=== PATIENT | female | born 1965 | race Caucasian/White ===

== ENCOUNTER 2016-08-22 12:16 | Inpatient (IN) | payer BC ==
[~2016-08-22] VITALS: Ht 177.8 cm; Wt 137.0 kg
[~2016-08-22 12:16] MED LIST: NEBI5TAB9 PO
--- NOTE | 2016-08-22 13:48 | RADRPT ---
PROCEDURE: US right lower extremity veins. CLINICAL INDICATION: Right leg pain and swelling. TECHNIQUE: Multiple longitudinal and transverse images of the right lower extremity veins were obt ained with carlton scale and color Doppler imaging. The common femoral vein, femoral vein, and poplitea l vein were evaluated. 2D grayscale measurements with compression sonography, pulsed Doppler, color Doppler, and pulsed Doppler with augmentation. COMPARISON: No prior studies are available for comparison. FINDINGS: The right common femoral vein demonstrates normal flow and compressibility. There is lack of flow a nd lack of compressibility in the right upper femoral vein, right mid femoral vein, right lower femo ral vein, and right popliteal vein. IMPRESSION: 1. Normal right common femoral vein. 2. Acute deep venous thrombosis of the entire right femoral vein and right popliteal vein. Call report: A call report of the findings was made to Dr. Davis on 08/22/2016 at 1345 hours . RPTAT: QQ .Mukund Nolasco MD, MD Date Time Electronically viewed and signed by .Mukund Nolasco MD, on 08/22/2016 13:47 .R/
[2016-08-22 15:12] VITALS: BP 138/65; RESP 19
--- NOTE | 2016-08-22 16:28 | HP ---
DATE OF ADMISSION: 08/22/2016 CHIEF COMPLAINT AND HISTORY OF PRESENT ILLNESS: The patient is a 51-year-old lady who is well known to me from a previous followup, who presents with severe pain in the right knee and was evaluated in the office. The pain was in the right knee on 07/18/2016 and the patient was begun on a course of nonsteroidals , with a dressing to the right knee, with some improvement. She had developed mild tenderness in the right calf on 07/25/2016 and a Doppler study was performed of the right lower extremity and was negative for DVT and she was advised to follow up with Dr. Mayen and consider MRI. On 08/07/2016 she twisted his right knee while getting up and had been evaluated again in the office. On 08/15/2016 MRI of the right knee showed unstable attachment, a tear of the posterior horn of the medial meniscus, with mild peripheral subluxation, and also a clot in the popliteal vein was noted. The patient was advised to have a Doppler study of the right lower extremity, which was performed today, and it showed acute DVT of the entire right femoral vein and right popliteal vein and the patient is directly admitted to the medical floor for anticoagulation, as well as orthopedic followup. REVIEW OF SYSTEMS: HEAD: No history of headaches, focal weakness, or numbness. EYES: No blurry vision or glaucoma. ENT: Noncontributory. NECK: No history of thyroid disease. CHEST: No bronchitis, hay fever, or asthma. The patient does not smoke. CARDIOVASCULAR: No PND, orthopnea or palpitations. GASTROINTESTINAL: No constipation, diarrhea or change in bowel habits. GENITOURINARY: No dysuria, hematuria or kidney stones. ALLERGIES: NO KNOWN ALLERGIES. PAST MEDICAL HISTORY: The patient has a history of hypertension and she had being on Bystolic 5 mg p.o. daily, with adequate control. SOCIAL HISTORY: The patient is , has 1 son, and works in [employer]. FAMILY HISTORY: Negative for diabetes and hypertension. No history of hypercoagulable states. The patient's father had a stroke. Mother has hypertension. PAST SURGICAL HISTORY: Includes a . PHYSICAL EXAMINATION: GENERAL: The patient is a very pleasant lady, in no acute distress at the present time. VITAL SIGNS: Blood pressure 170/80, respiratory rate 20 per minute. HEENT: Head normocephalic. No pallor, cyanosis, or icterus. Tongue is moist. NECK: Supple. No thyromegaly, bruits or lymphadenopathy. LUNGS: Clinically clear. HEART: S1, S2 heard, with no definite gallops. ABDOMEN: Soft, nontender. No hepatosplenomegaly. EXTREMITIES: Moderate tenderness on palpation of the right knee, with swelling of the right lower extremity. Negative Homans. NEUROLOGIC: No localizing or lateralizing signs. IMPRESSION: 1. Acute deep vein thrombosis of the right femoral and right popliteal veins. 2. Internal injury of the right knee, with a tear of the medial meniscus. 3. Hypertension. Well compensated. PLAN: The patient will be admitted to the medical floor. Will start the patient on Lovenox. Will obtain an orthopedic followup with Dr. Mayen. The DVT has been provoked and therefore no major workup will be initiated for a hypercoagulable state. Dictated By: NIKA WEI MD Addendum: When I repeated the history, reg any pulmonary complaints, pt mentioned regarding mild pleuritic pain for the past 2 days, concern for PE has been raised, will order CTA. If positive for PE, will initiate w/u for thrombophilia. SR/MARIELA Conf#: [id number] DID#: [id number] MTDD
[2016-08-22] MEDS ORDERED: morphine 4 MG/ML VIAL IV PRN (17:00)
[2016-08-22] MEDS ORDERED: ZOLPIDEM 5 MG TAB PO PRN (17:00)
[2016-08-22] MEDS ORDERED: ACETAMINOPHEN 500 MG TAB PO PRN (17:00)
[2016-08-22 17:48] VITALS: Ht 177.8 cm; Wt 137.0 kg
[2016-08-22 18:46] LABS: BASOPHILS % 0.5 % (0.0-2.0); EOSINOPHILS # 0.4 10^3/ul (0.0-0.5); EOSINOPHILS % 3.9 % (0.0-7.0); HEMATOCRIT 33.2 % (37.0-47.0); HEMOGLOBIN 10.6 g/dl (12.0-16.0); LYMPHOCYTES # 2.7 10^3/ul (0.8-2.9); LYMPHOCYTES % 26.3 % (15.0-51.0); MEAN CORPUSCULAR HEMOGLOBIN 24.5 pg (29.0-33.0); MEAN CORPUSCULAR VOLUME 76.6 fl (82.0-101.0); MEAN PLATELET VOLUME 7.1 fl (7.4-10.4); MONOCYTE # 0.9 10^3/ul (0.3-0.9); MONOCYTES % 8.9 % (0.0-11.0); NEUTROPHIL # 6.3 10^3/ul (1.6-7.5); NEUTROPHILS % 60.4 % (39.0-77.0); PLATELET COUNT 273 10^3/UL (140-440); RED BLOOD COUNT 4.33 10^6/ul (4.20-5.40); RED CELL DISTRIBUTION WIDTH 18.7 % (11.5-14.5); UNCORRECTED WBC 10.5 10^3/ul (4.8-10.8); WHITE BLOOD COUNT 10.5 10^3/ul (4.8-10.8)
[2016-08-22 18:52] LABS: CONDITION 1; LH ANALYZER COMMENTS 1
[2016-08-22 19:00] LABS: INR 0.98
[2016-08-22 19:02] LABS: PARTIAL THROMBOPLASTIN TIME 24.7 Sec (25.0-35.0)
[2016-08-22] MEDS ORDERED: SOD CHLORIDE 0.45% 1,000 ML IV SCH (19:30)
[2016-08-22 19:36] LABS: ALBUMIN/GLOBULIN RATIO 1.11; BILIRUBIN,INDIRECT 0.9 mg/dl (0-1.1); BILIRUBIN,TOTAL 0.9 mg/dl (0.2-1.3); CREATININE 0.98 mg/dl (0.44-1.00); TOTAL PROTEIN 7.6 g/dl (6.1-8.1)
[2016-08-22 19:37] LABS: CALCIUM 8.9 mg/dl (8.4-10.2)
[2016-08-22] MEDS ORDERED: IOHEXOL 0 ML ONE (19:59)
[2016-08-22 20:57] VITALS: BP 134/68; RESP 19
[2016-08-22] MEDS: ENOXAPARIN 60 MG/0.6 ML SYG SC SCH (21:14)
--- NOTE | 2016-08-22 21:21 | RADRPT ---
PROCEDURE: XR Chest. CLINICAL INDICATION: cough/ pleuritic pain TECHNIQUE: PA and lateral views of the chest were obtained COMPARISON: None FINDINGS: The heart and mediastinum are within normal limits. The lungs are clear and there is no pleural effusion or pneumothorax. The bones and soft tissues are unremarkable. IMPRESSION: No acute intrathoracic abnormality. RPTAT:AAJJ Physician Rustam Date Time Electronically viewed and signed by Physician Rustam on 08/22/2016 21:21 SNEHA/
[2016-08-23] VITALS (13 sets, daily range): BP systolic 115–141; BP diastolic 46–76; PULSE 77–95; RESP 16–24
[2016-08-23] MEDS: HYDROCODONE/APAP (5/325) TAB PO PRN ×3 (04:57→20:23)
[2016-08-23 06:09] LABS: BASOPHIL # 0.1 10^3/ul (0.0-0.1); BASOPHILS % 0.6 % (0.0-2.0); EOSINOPHILS # 0.3 10^3/ul (0.0-0.5); EOSINOPHILS % 2.8 % (0.0-7.0); HEMATOCRIT 32.5 % (37.0-47.0); HEMOGLOBIN 10.7 g/dl (12.0-16.0); LYMPHOCYTES % 25.1 % (15.0-51.0); MEAN CORPUSCULAR HEMOGLOBIN 25.2 pg (29.0-33.0); MEAN CORPUSCULAR VOLUME 76.4 fl (82.0-101.0); MEAN PLATELET VOLUME 7.9 fl (7.4-10.4); MONOCYTE # 1.2 10^3/ul (0.3-0.9); MONOCYTES % 10.2 % (0.0-11.0); NEUTROPHIL # 7.3 10^3/ul (1.6-7.5); NEUTROPHILS % 61.3 % (39.0-77.0); PLATELET COUNT 256 10^3/UL (140-440); RED BLOOD COUNT 4.25 10^6/ul (4.20-5.40); RED CELL DISTRIBUTION WIDTH 18.4 % (11.5-14.5); UNCORRECTED WBC 11.9 10^3/ul (4.8-10.8); WHITE BLOOD COUNT 11.9 10^3/ul (4.8-10.8)
[2016-08-23 06:28] LABS: CONDITION 1; LH ANALYZER COMMENTS 1
[2016-08-23 06:30] LABS: POTASSIUM 4.2 mmol/L (3.5-5.1)
[2016-08-23 06:33] LABS: CALCIUM 8.8 mg/dl (8.4-10.2); CREATININE 0.93 mg/dl (0.44-1.00)
[2016-08-23 06:34] LABS: MAGNESIUM 1.9 mg/dl (1.7-2.5)
[2016-08-23] MEDS: NEBIVOLOL 5 MG TAB PO SCH (08:36)
[2016-08-23] MEDS ORDERED: IOHEXOL 100 ML ONE (09:32)
[2016-08-23] MEDS ORDERED: SOD CHLORIDE 0.9% 100 ML ONE (09:32)
--- NOTE | 2016-08-23 10:32 | RADRPT ---
PROCEDURE: CT Pulmonary Angiogram. CLINICAL INDICATION: The venous thrombosis. Chest pain and shortness of breath. TECHNIQUE: CT pulmonary angiogram and a CT scan of the chest with contrast was performed. The pat ient was scanned following the uncomplicated intravenous administration of 110 cc of Omnipaque-350 i ntravenous contrast. 2-D coronal reformatted images were obtained from the axial source images. In addition, 3-D post processing was performed. Total exam DLP is 1041.32 mGy-cm. CTDIvol is 139.59 mGy. One or more of the following dose reduction techniques were used: Automated exposure control, adjustment of the mA and/or kV according to patient size, use of iterative reconstruction technique. COMPARISON: None available. FINDINGS: There are large bilateral pulmonary emboli throughout the right upper lobe, right middle lobe, right lower lobe, left upper lobe, and left lower lobe. A large filling defect is present in the distal right main pulmonary artery, also consistent with pulmonary artery embolism. The lungs are clear. There is no pulmonary airspace or interstitial disease. There is no pulmonary nodule or mass lesion. There is no pneumothorax. There is no mediastinal or hilar lymphadenopathy or mass. There is no pleural effusion. There is no pericardial effusion. The thoracic aorta is normal with no aneurysm or dissection. Images through the upper abdomen demonstrate diffuse decreased attenuation of the liver consistent w ith fatty metamorphosis. The liver is enlarged. The visualized portions of the liver, spleen, and adrenals are otherwise normal. There are degenerative changes of the lower thoracic spine. There is no fracture or lytic lesion. IMPRESSION: 1. Multiple large bilateral pulmonary emboli throughout all lobes. Large pulmonary artery embolism in the distal right main pulmonary artery. 2. Clear lungs. 3. Fatty metamorphosis of the liver. Hepatomegaly. 4. Degenerative changes of the lower thoracic spine. 5. Otherwise unremarkable study. Call report: A call report of the findings was made to the patient's nurse Natalidaryl Barry on [address] Davis was called but not available. RPTAT: QQ .Mukund Nolasco MD, MD Date Time Electronically viewed and signed by .Mukund Nolasco MD, on 08/23/2016 10:32 .R/
[2016-08-23] MEDS: ENOXAPARIN 60 MG/0.6 ML SYG SC SCH ×2 (10:50→20:26)
[2016-08-23] MEDS: SOD CHLORIDE 0.45% 1,000 ML IV SCH (10:52)
[2016-08-23 14:39] LABS: D-DIMER 2933.09 ng/ml (<460)
[2016-08-23 14:48] LABS: B-TYPE NATRIURETIC PEPTIDE 79 PG/ML (0-125)
[2016-08-23 14:54] LABS: TROPONIN-I < 0.010 ng/ml (0.00-0.12)
[2016-08-23 15:40] LABS: POTASSIUM 4.6 mmol/L (3.5-5.1)
[2016-08-23 15:43] LABS: CREATININE 0.8 mg/dl (0.44-1.00)
[2016-08-23 15:44] LABS: CALCIUM 8.8 mg/dl (8.4-10.2)
--- NOTE | 2016-08-23 17:38 | RADRPT ---
Echocardiogram Report Patient Name: RAMEZ LEE Gender: Female Date: 1965 Study Date: 23-Aug-2016 Facilities Director: BUNNY Location: I Ref. Physician: NIKA WEI Quality: Technically Difficult Study Procedures: Transthoracic echocardiogram with 2D, M-Mode, and Doppler examination. Indications: Pulmonary embolism. 2D/M Mode Doppler Measurement Value Normal Ranges Measurement Value Normal Ranges AoR Diam MM 3.3 cm AV Peak Cas 1.5 m/sec ACS MM 2.2 cm AV Peak PG 9.1 mmHg LVIDd 2D 5.0 3.5 - 5.6 cm LVOT Peak Cas 1.1 m/sec LVIDs 2D 3.2 2.1 - 4.1 cm LVOT Peak PG 4.5 mmHg LVPWd 2D 1.2 0.6 - 1.1 cm MV E Peak Cas 0.6 m/sec IVSd 2D 1.3 0.6 - 1.1 cm MV A Peak Cas 0.7 m/sec EDV 2D 120.6 cm3 MV E/A 0.9 ESV 2D 33.1 cm3 MV Decel Time 233 msec LA Dimen 2D 3.5 2.3 - 4.0 cm MV Decel [place] 3 MV E/A 0.9 PV Peak Cas 0.9 m/sec PV Peak PG 3.0 mmHg Findings Left Ventricle: Normal left ventricular systolic function. Normal left ventricular cavity size. Mild concentric left ventricular hypertrophy. Ejection fraction is visually estimated at 65 %. Tissue Doppler/Mitral Doppler indices are within normal limits. E/E`=5. E`=0 cm/s. Right Ventricle: Normal right ventricular size. Normal right ventricular systolic function. Left Atrium: The left atrium is normal in size. Right Atrium: The right atrium is normal in size. Atrial Septum: Normal atrial septum. Mitral Valve: Normal appearance of the mitral valve. No mitral valve regurgitation is seen. Aortic Valve: Normal appearance of the aortic valve. No significant aortic stenosis or insufficiency. Tricuspid Valve: Normal appearance of the tricuspid valve. Unable to obtain RVSP due to minimal presence of tricuspid regurgitation. There is trace tricuspid regurgitation. Pulmonic Valve: Normal pulmonic valve appearance. There is trace to mild pulmonic regurgitation. Pericardium: Normal pericardium with no significant pericardial effusion. Aorta: Normal aortic root. IVC: Dilated IVC without respiratory collapse consistent with elevated right atrial pressure. Pulmonary Artery: Not well visualized. Conclusions Technically Difficult Study. Normal left ventricular systolic function. Normal left ventricular cavity size. Mild concentric left ventricular hypertrophy. Ejection fraction is visually estimated at 65 %. Tissue Doppler/Mitral Doppler indices are within normal limits. E/E`=5. E`=0 cm/s. Normal right ventricular size. Normal right ventricular systolic function. The right atrium is normal in size. Normal appearance of the tricuspid valve. Unable to obtain RVSP due to minimal presence of tricuspid regurgitation. There is trace tricuspid regurgitation. Normal pulmonic valve appearance. There is trace to mild pulmonic regurgitation. Dilated IVC without respiratory collapse consistent with elevated right atrial pressure. No Vegetation, masses, or thrombi seen. Electronically Signed By: Aki Eagle 23-Aug-2016 17:38:19 -0800 Patient Name: RAMEZ LEE Study Date: 23-Aug-2016 [id number]
--- NOTE | 2016-08-23 18:16 | CONS ---
Date/Time of Note Date/Time of Note DATE: 08/23/16 TIME: 17:58 Assessment/Plan Assessment/Plan Chief Complaint/Hosp Course Impression Acute DVT/PE: hemodynamically stable, no e/o of RV dilation/dysfunction on echo to indicated massive PE. agree with anticoagulation. no indication for tPA at this time. pt also clinically stable without hypoxia, tachycardia, tachypnea, hypotension. if clinical status changes would reconsider tPA, pt is not high risk for bleeding could be given systemically. also with large DVT, but no e/o of Phlegmasia Cerulea Dolens, no acute indication for catheter based thrombolysis. HTN- stable on home meds d/w Dr. Wei Problems: Consultation Date/Type/Reason Admit Date/Time Aug 22, 2016 at 14:52 Date of Consultation: Aug 23, 2016 Type of Consultation: Cardiology Reason for Consultation DVT/PE Referring Provider: NIKA WEI MD Hx of Present Illness 51 y.o. with h/o of htn - presented with R knee pain in late july - had injury and twisted knee - MRI showed meniscal tear and DVT - pt admitted for anticoagulation intiation, did have some cp with inspiration a week ago now resolved - cta to r/o pe obtained showing large PE - echo with normal RV size, function. minimal TR, dilated IVC. nomral lv systolic function - pt denies cp, sob, tachypnea, pleurtic cp - minimal edema RLE, does have cont rle pain Constitutional: no complaints Eyes: no complaints ENT: no complaints Respiratory: no complaints Cardiovascular: no complaints Gastrointestinal: no complaints Genitourinary: no complaints Musculoskeletal: bone/joint pain Skin: no complaints Neurologic: no complaints Psychological: no complaints Immunologic: no complaints Past Medical History HTN R knee injury Family History Significant Family History: other (stroke in father, denies hypercoag family hx ) Social History Alcohol Use: rarely Smoking Status: Never smoker Drug Use: none Other Social History no OTC or hormonal therapy Exam/Review of Systems Vital Signs Vitals Vital Signs Date Time Temp Pulse Resp B/P Pulse Ox O2 Delivery O2 Flow Rate FiO2 08/23/16 17:00 79 17 125/66 95 Nasal Cannula 08/23/16 15:00 98.0 Intake and Output 08/22/16 08/22/16 08/23/16 15:00 23:00 07:00 Intake Total 120 ml 1400 ml Balance 120 ml 1400 ml Exam Constitutional: alert, oriented Psych: nl mood/affect, no complaints Head: normocephalic Eyes: nl conjunctiva ENMT: nl external ears & nose Neck: non-tender, other (large neck, no JVD appreciated), supple Respiratory: clear to auscultation, normal air movement Cardiovascular: edema (trace rle), nl pulses, regular rate and rhythm, No S3, No S4, No bruits, No diastolic murmur, No irregular rhythm, No murmurs /extra sounds, No systolic murmur Gastrointestinal: non-tender, soft Genitourinary - Female: nl adnexae Musculoskeletal: nl extremities to inspection, other (slight warmth RLE, no erythema, skin breakdown, ucleration) Extremities: normal pulses Neurological: [employer] II-XII intact, nl mental status, nl speech Lymph: nl lymph nodes Results Result Diagram: 08/23/16 0439 08/23/16 1410 Results 24 hrs Laboratory Tests Test 08/22/16 18:30 08/23/16 04:39 08/23/16 14:00 08/23/16 14:10 Activated Partial Thromboplast Time 24.7 L Alanine Aminotransferase (ALT/SGPT) 29 Albumin 4.0 Albumin/Globulin Ratio 1.11 Alkaline Phosphatase 99 Anion Gap 19 H 16 16 Aspartate Amino Transf (AST/SGOT) 20 Basophils # 0.0 0.1 Basophils % 0.5 0.6 Blood Morphology Comment Blood Urea Nitrogen 13 12 10 Calcium Level 8.9 8.8 8.8 Carbon Dioxide Level 28 28 29 Chloride Level 100 102 98 Creatinine 0.98 0.93 0.80 Direct Bilirubin 0.00 Eosinophils # 0.4 0.3 Eosinophils % 3.9 2.8 Globulin 3.60 H Glucose Level 142 104 116 Hematocrit 33.2 L 32.5 L Hemoglobin 10.6 L 10.7 L INR International Normalized Ratio 0.98 Indirect Bilirubin 0.9 Lymphocytes # 2.7 3.0 H Lymphocytes % 26.3 25.1 Mean Corpuscular Hemoglobin 24.5 L 25.2 L Mean Corpuscular Hemoglobin Concent 32.0 33.0 Mean Corpuscular Volume 76.6 L 76.4 L Mean Platelet Volume 7.1 L 7.9 Monocytes # 0.9 1.2 H Monocytes % 8.9 10.2 Neutrophils # 6.3 7.3 Neutrophils % 60.4 61.3 Nucleated Red Blood Cells # 0.0 0.0 Nucleated Red Blood Cells % 0.0 0.0 Platelet Count 273 256 Potassium Level 4.0 4.2 4.6 Prothrombin Time 13.0 Prothrombin Time Ratio 1.0 Red Blood Count 4.33 4.25 Red Cell Distribution Width 18.7 H 18.4 H Sodium Level 143 142 138 Total Bilirubin 0.9 Total Protein 7.6 White Blood Count 10.5 11.9 H Magnesium Level 1.9 B-Type Natriuretic Peptide 79 D-Dimer 2933.09 H D-Dimer Comment Troponin I < 0.010 Fibrinogen 587.0 H Medications Medications Current Medications Enoxaparin Sodium (Lovenox) 120 mg Q12 SC Last administered on 08/23/16 10:50; Admin Dose 120 MG; Start 08/22/16 at 21:00 Miscellaneous Medication (Bystolic) 5 mg DAILY PO Last administered on 08:36; Admin Dose 5 MG; Start 08/23/16 at 09:00 Morphine Sulfate (morphine) 4 mg Q4H PRN IV SEVERE PAIN LEVEL 7-10; Start at 17:00 Acetaminophen/ Hydrocodone Bitart ([place] (5/325)) 1 tab Q4H PRN PO MODERATE PAIN LEVEL 4-6 Last administered on 08/23/16 14:16; Admin Dose 1 TAB; Start 08/22 at 17:00 Acetaminophen (Tylenol Tab) 500 mg Q4H PRN PO PAIN AND OR ELEVATED TEMP; Start 08/22/16 at 17:00 Zolpidem Tartrate 5 mg 5 mg HS PRN PO INSOMNIA; Start 08/22/16 at 17:00 Sodium Chloride (1/2 NS) 1,000 ml @ 75 mls/hr [id number] IV Last administered on 08/23/16 10:52; Admin Dose 75 MLS/HR; Start 08/23/16 at 08:30 Pantoprazole (Protonix Tab) 40 mg DAILY@06 PO ; Start 08/24/16 at 06:00 Procedures Procedures EKG: NSR, poor r wave progression. no rv strain, pe pattern Echo reviewed in emr CTA report revivewed CxR images reviewed. no acute abnl JAIRO ALLRED. Aug 23, 2016 18:09
[2016-08-23] MEDS ORDERED: SOD CHLORIDE 0.45% 1,000 ML IV SCH (20:30)
[2016-08-24] VITALS (18 sets, daily range): BP systolic 109–141; BP diastolic 46–66; PULSE 70–90; RESP 16–23
--- NOTE | 2016-08-24 00:03 | CONS ---
DATE OF ADMISSION: 08/22/2016 DATE OF CONSULTATION: 08/23/2016 PRIMARY PHYSICIAN: Dr. Wei. REASON FOR CONSULTATION: Evaluation for pulmonary embolism. HISTORY OF PRESENT ILLNESS: Briefly, this is a 51-year-old pleasant lady with a history of hyperten abram who has been complaining of right knee pain for some time now, which started approximately 2 mo nths prior. She was evaluated as an outpatient and underwent an MRI, which revealed a tear of the p osterior horn of the medial meniscal with peripheral subluxation and also a clot was noted in the po pliteal vein at that point. The patient was admitted by Dr. Wei for initiation anticoagula tion and a CT angio was also done at that time which was notable for extensive right and left-sided lobar intrapulmonary and segmental pulmonary embolism, more extensive on the right side. Of note, s ome of these findings, such as recanalization of some of the vessels and contrast passing through ar eas of clot burden as well as some mosaic changes in the lung windows are suggestive of a chronic co mponent as well as an acute component to the pulmonary emboli. Of note, the patient does say that s he has had some mild increased dyspnea and dyspnea on exertion over the past 2 months. PAST SURGICAL HISTORY: Hypertension. MEDICATION: Bystolic. ALLERGIES: NONE. SOCIAL HISTORY: No tobacco, alcohol, or illicit drug use. Patient also denies any recent travel hi story, any oral contraceptives, or any history of thrombophilia. FAMILY HISTORY: Noncontributory. REVIEW OF SYSTEMS: As noted in the HPI. MEDICATIONS: Please see MAR. PHYSICAL EXAMINATION: VITAL SIGNS: Heart rate is 80, blood pressure 128/63, oxygen saturation is 98% on room air. HEENT: Normocephalic, atraumatic. NECK: Supple, no thyromegaly, no jugular venous distention. CARDIOVASCULAR: Regular rate and rhythm. Increased mild splitting of the second heart sound noted. CHEST: Clear to auscultation bilaterally. ABDOMEN: Soft, obese, nontender. EXTREMITIES: There is trace lower extremity edema, but they appear symmetrical. LABORATORY DATA: WBC 11.9, hemoglobin is 10.7, BUN and creatinine are within normal limits. Tropon in is less than 0.01. BNP is 79. CT angio shows multiple bilateral pulmonary emboli, right greater than left. As noted, again, there is some recanalization with contrast, clot bypassing areas, area s of intraluminal filling, as well as some mosaic changes in the lung windows. Lower extremity ultr asound shows acute DVT in the entire right femoral vein and right popliteal vein. IMPRESSION: Pulmonary embolism with a deep venous thrombosis in a patient without any significant risk factors o ther than potentially a mild meniscal injury on the right knee, which has not required any surgery. Furthermore, patient has had no immobilizations, any long travel history, any family history of thr ombophilia. The findings on CT angio do suggest both a mildly chronic as well as an acute component to the PEs. Thus far, there is no evidence of submassive PE based on cardiac biomarkers. A transt horacic echo has been ordered and is pending. IMPRESSIONS AND RECOMMENDATIONS: 1. Enoxaparin 1 mg/kg q. 12 hours. 2. Obtain a TTE. 3. At this point, the patient does not meet criteria for treatment with half dose TPA for submassiv e PE per reasons noted earlier. 4. Thrombophilia workup will be initiated as deemed appropriate based on the fact that the patient is on anticoagulation at this point. 5. Case discussed with patient and family and all questions answered. Dictated By: RADHA WALLS MD NK/NTS Conf#: [id number] DID#: [id number] CC: NIKA WEI MD;*EndCC*
[2016-08-24] MEDS: SOD CHLORIDE 0.45% 1,000 ML IV SCH ×2 (00:15→12:50)
[2016-08-24 05:39] LABS: BASOPHIL # 0.1 10^3/ul (0.0-0.1); BASOPHILS % 0.5 % (0.0-2.0); EOSINOPHILS # 0.2 10^3/ul (0.0-0.5); EOSINOPHILS % 1.6 % (0.0-7.0); LYMPHOCYTES # 2.4 10^3/ul (0.8-2.9); LYMPHOCYTES % 19.9 % (15.0-51.0); MEAN CORPUSCULAR HEMOGLOBIN 24.8 pg (29.0-33.0); MEAN CORPUSCULAR HGB CONC 32.2 g/dl (32.0-37.0); MEAN CORPUSCULAR VOLUME 76.9 fl (82.0-101.0); MEAN PLATELET VOLUME 7.6 fl (7.4-10.4); MONOCYTE # 1.4 10^3/ul (0.3-0.9); MONOCYTES % 11.4 % (0.0-11.0); NEUTROPHILS % 66.6 % (39.0-77.0); PLATELET COUNT 251 10^3/UL (140-440); RED BLOOD COUNT 4.03 10^6/ul (4.20-5.40); RED CELL DISTRIBUTION WIDTH 18.7 % (11.5-14.5); UNCORRECTED WBC 12.1 10^3/ul (4.8-10.8); WHITE BLOOD COUNT 12.1 10^3/ul (4.8-10.8)
[2016-08-24 05:47] LABS: CONDITION 1; LH ANALYZER COMMENTS 1
[2016-08-24 06:02] LABS: ALBUMIN 3.4 g/dl (3.3-4.9)
[2016-08-24 06:03] LABS: POTASSIUM 4.1 mmol/L (3.5-5.1)
[2016-08-24 06:05] LABS: ALBUMIN/GLOBULIN RATIO 1.03; CREATININE 0.87 mg/dl (0.44-1.00); TOTAL PROTEIN 6.7 g/dl (6.1-8.1)
[2016-08-24 06:06] LABS: CALCIUM 8.3 mg/dl (8.4-10.2); CHOL/HDL RATIO 4.9 RATIO
[2016-08-24] MEDS: PANTOPRAZOLE (EC) 40 MG TAB PO SCH (06:07)
[2016-08-24] MEDS: HYDROCODONE/APAP (5/325) TAB PO PRN ×2 (06:25→17:40)
[2016-08-24] MEDS: ENOXAPARIN 60 MG/0.6 ML SYG SC SCH ×2 (08:49→20:26)
--- NOTE | 2016-08-24 09:00 | RADRPT ---
Vent Rate: 77 bpm RR Interval: 0 msec PA Interval: 180 msec QRS Duration: 96 msec QT Interval: 406 msec QTC Interval: 459 msec P-R-T [place]: 64 - 69 - 71 degrees Normal sinus rhythm Normal ECG Electronically Signed By: David Duncan [id number]
[2016-08-24] MEDS: NEBIVOLOL 5 MG TAB PO SCH (09:36)
--- NOTE | 2016-08-24 14:07 | CONS ---
Date/Time of Note Date/Time of Note DATE: 08/24/16 TIME: 14:04 Consult Date/Type/Reason Admit Date/Time Aug 22, 2016 at 14:52 Initial Consult Date 08/23/16 Type of Consultation: Pulm Ordering Provider: NIKA WEI MD Subjective Feeling well. No SOB. Objective Vital Signs Date Time Temp Pulse Resp B/P Pulse Ox O2 Delivery O2 Flow Rate FiO2 08/24/16 12:00 80 08/24/16 11:00 16 121/64 96 08/24/16 08:00 Nasal Cannula 08/24/16 06:09 2.0 08/24/16 04:00 98.8 Intake and Output 08/23/16 08/23/16 08/24/16 15:00 23:00 07:00 Intake Total 977.5 ml 820 ml 725 ml Output Total 0 ml 0 ml Balance 977.5 ml 820 ml 725 ml HEENT: Normocephalic, atraumatic. NECK: Supple, no thyromegaly, no jugular venous distention. CARDIOVASCULAR: Regular rate and rhythm. Increased mild splitting of the second heart sound noted. CHEST: Clear to auscultation bilaterally. ABDOMEN: Soft, obese, nontender. EXTREMITIES: There is trace lower extremity edema, but they appear symmetrical. Results/Medications Result Diagram: 08/24/16 0440 08/24/16 0440 Results 24 hrs Laboratory Tests Test 08/23/16 14:10 08/24/16 04:40 Anion Gap 16 15 Blood Urea Nitrogen 10 9 Calcium Level 8.8 8.3 L Carbon Dioxide Level 29 27 Chloride Level 98 99 Creatinine 0.80 0.87 Fibrinogen 587.0 H Glucose Level 116 116 Potassium Level 4.6 4.1 Sodium Level 138 137 Alanine Aminotransferase (ALT/SGPT) 30 Albumin 3.4 Albumin/Globulin Ratio 1.03 Alkaline Phosphatase 91 Aspartate Amino Transf (AST/SGOT) 15 Basophils # 0.1 Basophils % 0.5 Blood Morphology Comment Cholesterol Level 143 Cholesterol/HDL Ratio 4.9 Direct Bilirubin 0.00 Eosinophils # 0.2 Eosinophils % 1.6 Globulin 3.30 H HDL Cholesterol 29 L Hematocrit 31.0 L Hemoglobin 10.0 L Indirect Bilirubin 1.0 LDL Cholesterol, Calculated 97 Lymphocytes # 2.4 Lymphocytes % 19.9 Mean Corpuscular Hemoglobin 24.8 L Mean Corpuscular Hemoglobin Concent 32.2 Mean Corpuscular Volume 76.9 L Mean Platelet Volume 7.6 Monocytes # 1.4 H Monocytes % 11.4 H Neutrophils # 8.0 H Neutrophils % 66.6 Nucleated Red Blood Cells # 0.0 Nucleated Red Blood Cells % 0.0 Platelet Count 251 Red Blood Count 4.03 L Red Cell Distribution Width 18.7 H Total Bilirubin 1.0 Total Protein 6.7 Triglycerides Level 84 White Blood Count 12.1 H Medications Current Medications Enoxaparin Sodium (Lovenox) 120 mg Q12 SC Last administered on 08/24/16 08:49; Admin Dose 120 MG; Start 08/22/16 at 21:00 Miscellaneous Medication (Bystolic) 5 mg DAILY PO Last administered on 09:36; Admin Dose 5 MG; Start 08/23/16 at 09:00 Morphine Sulfate (morphine) 4 mg Q4H PRN IV SEVERE PAIN LEVEL 7-10; Start at 17:00 Acetaminophen/ Hydrocodone Bitart ([place] (5/325)) 1 tab Q4H PRN PO MODERATE PAIN LEVEL 4-6 Last administered on 08/24/16 06:25; Admin Dose 1 TAB; Start 08/22 at 17:00 Acetaminophen (Tylenol Tab) 500 mg Q4H PRN PO PAIN AND OR ELEVATED TEMP; Start 08/22/16 at 17:00 Zolpidem Tartrate 5 mg 5 mg HS PRN PO INSOMNIA; Start 08/22/16 at 17:00 Sodium Chloride (1/2 NS) 1,000 ml @ 75 mls/hr [id number] IV Last administered on 08/24/16 12:50; Admin Dose 75 MLS/HR; Start 08/23/16 at 08:30 Pantoprazole (Protonix Tab) 40 mg DAILY@06 PO Last administered on 08/24/16 06: 07; Admin Dose 40 MG; Start 08/24/16 at 06:00 Assessment/Plan Additional Assessment/Plan IMPRESSION: Pulmonary embolism with a deep venous thrombosis in a patient without any significant risk factors other than potentially a mild meniscal injury on the right knee, which has not required any surgery. Furthermore, patient has had no immobilizations, any long travel history, any family history of thrombophilia. The findings on CT angio do suggest both a mildly chronic as well as an acute component to the PEs. Thus far, there is no evidence of submassive PE based on cardiac biomarkers and TTE. RECOMMENDATIONS: 1. Enoxaparin 1 mg/kg q. 12 hours. 2. Start [place] tomorrow 3. Mobilize OOB 4. Tele RADHA Barton MD Aug 24, 2016 14:07
[2016-08-25] VITALS (12 sets, daily range): BP systolic 118–145; BP diastolic 53–66; PULSE 69–83; RESP 17–20
[2016-08-25] MEDS: SOD CHLORIDE 0.45% 1,000 ML IV SCH ×2 (00:33→18:19)
[2016-08-25] MEDS: PANTOPRAZOLE (EC) 40 MG TAB PO SCH (05:02)
[2016-08-25 06:29] LABS: BASOPHILS % 0.5 % (0.0-2.0); EOSINOPHILS # 0.3 10^3/ul (0.0-0.5); EOSINOPHILS % 2.6 % (0.0-7.0); HEMATOCRIT 28.9 % (37.0-47.0); HEMOGLOBIN 9.5 g/dl (12.0-16.0); LYMPHOCYTES # 2.3 10^3/ul (0.8-2.9); LYMPHOCYTES % 22.9 % (15.0-51.0); MEAN CORPUSCULAR HGB CONC 32.9 g/dl (32.0-37.0); MEAN PLATELET VOLUME 7.6 fl (7.4-10.4); MONOCYTES % 10.1 % (0.0-11.0); NEUTROPHIL # 6.5 10^3/ul (1.6-7.5); NEUTROPHILS % 63.9 % (39.0-77.0); PLATELET COUNT 267 10^3/UL (140-440); RED CELL DISTRIBUTION WIDTH 18.8 % (11.5-14.5); UNCORRECTED WBC 10.1 10^3/ul (4.8-10.8); WHITE BLOOD COUNT 10.1 10^3/ul (4.8-10.8)
[2016-08-25 06:30] LABS: CONDITION 1; LH ANALYZER COMMENTS 1
[2016-08-25 06:35] LABS: POTASSIUM 4.6 mmol/L (3.5-5.1)
[2016-08-25 06:37] LABS: CREATININE 0.89 mg/dl (0.44-1.00)
[2016-08-25 06:38] LABS: CALCIUM 8.5 mg/dl (8.4-10.2)
[2016-08-25] MEDS: NEBIVOLOL 5 MG TAB PO SCH (08:59)
[2016-08-25] MEDS: ENOXAPARIN 60 MG/0.6 ML SYG SC SCH ×2 (09:05→20:42)
[2016-08-25 09:16] LABS: IRON 25 ug/dl (35-150)
[2016-08-25 09:25] LABS: TOTAL IRON BINDING CAPACITY 300 ug/dl (241-421)
[2016-08-25] MEDS: HYDROCODONE/APAP (5/325) TAB PO PRN (09:58)
--- NOTE | 2016-08-25 10:38 | CONS ---
DATE OF ADMISSION: 08/22/2016 DATE OF CONSULTATION: 08/25/2016 PHYSICIAN REQUESTING CONSULTATION: Dr. Primo Davis REASON FOR CONSULTATION: Possible hypercoagulable state. Dear Dr. Davis: Thank you very much for asking me to see this very pleasant patient in hemato logic consultation. As you know, Ms. Grossman is a 51-year-old female who has been in relatively good h ealth except for hypertension. The patient states that she began to experience some right knee pain in late May or early er of 2015. During that, she states that, apparently, at that time, the patient did have a venous e valuation of the lower extremity, which was negative for a deep vein thrombosis. The patient states she did not notice any swelling at that time, there was no erythema or warmth to the touch. On 08/07/2016, however, the patient states that she twisted her right knee. The patient was then se en again by Dr. Davis and an MRI was performed, which did reveal damage to the right medial meniscus. There was also, however, at that time, a thrombosis noted in the right popliteal vein. The patient then underwent a lower extremity venous study again. This time, it showed acute deep ve in thrombosis in the entire right femoral vein and right popliteal vein. The patient was admitted t o the [facility] and has been started on enoxaparin. The patient also has undergone a CT angiogram of the chest, which has demonstrated multiple large bi lateral pulmonary emboli throughout both lobes. There is a large pulmonary artery embolism in the r ight distal main pulmonary artery. There were no other pulmonary lesions noted. The patient states that she has not actually had any chest pain. She may have noticed some cough on deep inspiration, but no pleuritic chest pain, no shortness of breath or dyspnea on exertion. No h emoptysis. Other than the injury to her right knee, the patient has had no other trauma. She has not been unus ually sedentary. She has not been on prolonged automobile or plane trips. The patient takes no bir th control pills or hormone replacement therapy. The patient's past history is unremarkable except for the history of hypertension. She has no histo ry of diabetes, heart disease, renal, hepatic or previous pulmonary disease. The patient's only la sadaf includes a section 26 years ago; this was uncomplicated. The patient is still having normal menstrual periods. She is 1, para 1, AB 0. As noted, aixa moncada is not taking oral contraception or any other type of hormonal agents. The patient's family history include a mother who has hypertension. The patient's father apparently had CVAs. She states he due to a "brain aneurysm" There is no other known history of any hypercoagulable state or thromboembolic phenomenon within the family. SOCIAL HISTORY: The patient is . She has had no known exposures to industrial toxins or ion izing radiation. She has never been a smoker and uses alcohol very minimally. LABORATORY: On admission, the patient's prothrombin time was 13 seconds, INR of 0.98, PT 24.7 secon ds, D-dimer was 2933.09. Fibrinogen 587. Today, the patient's white count is 10,100, hemoglobin 9. 5, hematocrit 28.9, MCV 76, MCH 25, MCHC 32.9, RDW 18.8, and platelet count 267,000. Sodium 140, po tassium 4.6, creatinine 0.89, BUN 10, glucose 98, calcium 8.5. PHYSICAL EXAMINATION GENERAL: At this time, reveals a well-developed, but obese female, who is in no acute dis tress. VITAL SIGNS: Temperature 99.2, pulse 83 per minute and regular, respiratory rate is 18, blood press ure 120/58, pulse oximetry is 95% on 2 liters of oxygen by nasal cannula. SKIN: No ecchymosis, no petechiae or rashes. HEENT: Normocephalic. No evidence of trauma. Pupils equal, round, reactive to light and accommoda tion. Sclerae nonicteric. Oral mucosa is moist without lesions. Tongue is well papillated. No gi ngival hyperplasia, no hypertrophy of Waldeyer ring. There is nasal oxygen in place. NECK: Supple, no jugular venous distention or thyroid enlargement. CHEST: Clear to auscultation and percussion. No rhonchi, wheezes, rales or rubs. No pain on percu ssion of spine, sternum, clavicles or ribs. HEART: Regular sinus rhythm. No S3, S4 or murmurs. ABDOMEN: Obese without masses or ascites. EXTREMITIES: Good range of motion. No clubbing or cyanosis. There is trace pretibial and pedal ed haleigh. There are no palpable cords or Homans sign. NEUROLOGIC: Normal. This patient has had demonstrated deep vein thrombosis and pulmonary emboli. This is not necessaril y unprovoked, as the patient has had an injury to the meniscus of the right knee. There are no othe r obvious inciting factors at this time. I would agree with the present treatment of using enoxaparin and then switching to a direct thrombin inhibitor, such as apixaban. I also agree with the evaluation for a hypercoagulable state, which has been already implemented by Dr. Davis. Some studies, such as protein S, protein C, and antithrombin III levels may be un interpretable, given the consumption of these factors at the time of acute thrombosis. I have discussed the situation with the patient and informed her about the possibility of underlying thrombophilia. Discovering such a state would affect duration of anticoagulation, as well as futur e treatment. If the patient is found to have a hypercoagulable state, then family members may also require screening Review of the patient's CBC does reveal that, at the time of admission, the patient had a microcytic anemia. I am concerned that there is some degree of iron deficiency and will request iron studies. Dictated By: CARLSO HAINES MD SR/NTS Conf#: [id number] DID#: [id number] CC: PRIMO DAVIS MD;*EndCC*
[2016-08-25 16:45] LABS: HOMOCYSTEINE - CARDIOVASCULAR 9.2 umol/L (<10.4)
[2016-08-26] VITALS (10 sets, daily range): BP systolic 119–131; BP diastolic 59–67; PULSE 76–81; RESP 16–20
[2016-08-26] MEDS: SOD CHLORIDE 0.45% 1,000 ML IV SCH ×2 (03:10→16:30)
[2016-08-26] MEDS: PANTOPRAZOLE (EC) 40 MG TAB PO SCH (06:00)
[2016-08-26 06:59] LABS: BASOPHIL # 0.1 10^3/ul (0.0-0.1); BASOPHILS % 0.6 % (0.0-2.0); EOSINOPHILS # 0.3 10^3/ul (0.0-0.5); EOSINOPHILS % 3.8 % (0.0-7.0); HEMATOCRIT 29.1 % (37.0-47.0); HEMOGLOBIN 9.5 g/dl (12.0-16.0); LYMPHOCYTES # 2.3 10^3/ul (0.8-2.9); LYMPHOCYTES % 26.7 % (15.0-51.0); MEAN CORPUSCULAR HEMOGLOBIN 24.8 pg (29.0-33.0); MEAN CORPUSCULAR HGB CONC 32.6 g/dl (32.0-37.0); MEAN PLATELET VOLUME 7.8 fl (7.4-10.4); MONOCYTE # 0.9 10^3/ul (0.3-0.9); MONOCYTES % 10.9 % (0.0-11.0); NEUTROPHIL # 4.9 10^3/ul (1.6-7.5); PLATELET COUNT 313 10^3/UL (140-440); RED BLOOD COUNT 3.83 10^6/ul (4.20-5.40); RED CELL DISTRIBUTION WIDTH 18.4 % (11.5-14.5); UNCORRECTED WBC 8.5 10^3/ul (4.8-10.8); WHITE BLOOD COUNT 8.5 10^3/ul (4.8-10.8)
[2016-08-26 07:02] LABS: CONDITION 1; LH ANALYZER COMMENTS 1
[2016-08-26 07:34] LABS: POTASSIUM 4.3 mmol/L (3.5-5.1)
[2016-08-26 07:37] LABS: CREATININE 0.85 mg/dl (0.44-1.00)
[2016-08-26 07:38] LABS: CALCIUM 8.4 mg/dl (8.4-10.2)
[2016-08-26] MEDS: NEBIVOLOL 5 MG TAB PO SCH (09:45)
[2016-08-26] MEDS: ENOXAPARIN 60 MG/0.6 ML SYG SC SCH ×2 (09:52→21:51)
--- NOTE | 2016-08-26 14:16 | PN ---
DATE: 08/26/2016 SUBJECTIVE: Chart reviewed. No significant events noted. The patient is on 1.5 liters O2 nasal ca nnula, saturating 94% and does not appear in any distress. PHYSICAL EXAMINATION: VITAL SIGNS: Blood pressure 131/61, pulse 76, respirations 16, temperature 98.3. HEENT: Pupils are equal and react to light. Anicteric sclerae. NECK: Supple, no JVD noted, no cervical lymphadenopathy noted, no carotid bruits heard. LUNGS: Fair breath sounds bilaterally. CARDIOVASCULAR: S1, S2 normal. ABDOMEN: Soft, nontender. No organomegaly or masses noted. EXTREMITIES: No clubbing, cyanosis or edema noted. NEUROLOGICAL: Awake. LABORATORY DATA: Sodium 140, potassium 4.3, chloride 102, CO2 27, BUN 12, creatinine 0.85, glucose 90. WBC 8.5, hemoglobin 9.5, hematocrit 29.1, platelets 313. IMPRESSION: 1. Deep venous thrombosis. 2. Pulmonary embolism. RECOMMENDATIONS: 1. Continue anticoagulation. 2. Hematology/oncology recommendations noted. 3. Hypercoagulable state. Workup as per oncology. Dictated By: OMAYRA ROWE MD, MA/MARIELA Conf#: [id number] DID#: [id number]
--- NOTE | 2016-08-26 15:14 | PN ---
DATE: SUBJECTIVE: The patient has occasional chest discomfort with deep inspiration with cough. No shortness of breath. Pain in the right groin has improved. Thigh is improving. PHYSICAL EXAMINATION: GENERAL: The patient is in no acute distress. VITAL SIGNS: Temperature 98.2, blood pressure 119/62, O2 saturation is 95% on 2 liters nasal O2. SKIN: Mild pallor without cyanosis or icterus. CHEST: Decreased breath sounds at bases. HEART: S1, S2 heard with no definite gallops. ABDOMEN: Soft. No organomegaly. EXTREMITIES: No edema. LABORATORY DATA: WBC 5.5, hematocrit 29.1, platelet count of 313,000. Sodium 140, potassium 4.3, BUN 12, creatinine 0.85. Serum iron 25, TIBC 300, percent saturation 8, ferritin 83.1. IMPRESSION: 1. Acute deep vein thrombosis of the right femoropopliteal vein with bilateral pulmonary emboli, including one in the right main pulmonary artery distally. 2. Status post right knee injury with right medial meniscus tear. 3. Hypertension. PLAN: We will continue thrombophilia workup as recommended by Dr. Lemus. Continue recommendations pulmonary rao by Dr. Spicer. We will consider transferring to medical floor after discussion with both Dr. Lemus and Dr. Spicer. We will also consider starting on Eliquis. Orthopedic consultation with Dr. Mayen is going to be requested for today. Dictated By: NIKA WEI MD, SR/MARIELA Conf#: [id number] DID#: [id number] MTDD
--- NOTE | 2016-08-26 15:23 | PN ---
Date/Time of Note Date/Time of Note DATE: 08/26/16 TIME: 15:20 Assessment/Plan VTE Prophylaxis VTE Prophylaxis Intervention: LMWH Lines/Catheters [facility]from [facility] Peripheral IV Urinary Cath still in place: No Assessment/Plan Assessment/Plan Pt had thrombophilia evaluation orddred by Dr. Lemus and the results are pending. I reiterated to her that these results do not affect the choice of treatment but may affect the duration of therapy. Subjective 24 Hr Interval Summary Free Text/Dictation Pt is comfortably lying in bed and denies pain or dyspnea. Exam/Review of Systems Vital Signs Vitals Vital Signs Date Time Temp Pulse Resp B/P Pulse Ox O2 Delivery O2 Flow Rate FiO2 08/26/16 12:34 Nasal Cannula 2.0 08/26/16 12:26 80 08/26/16 12:19 98.2 18 119/62 95 Intake and Output 08/25/16 08/25/16 08/26/16 15:00 23:00 07:00 Intake Total 1400 ml Output Total 800 ml Balance 600 ml Exam Constitutional: alert, oriented Psych: no complaints Head: normocephalic Respiratory: clear to auscultation Cardiovascular: regular rate and rhythm Gastrointestinal: non-tender, soft Extremities: other (no calf tenderness) Results Result Diagram: 08/26/16 0601 08/26/16 0601 Results 24 hrs Laboratory Tests Test 08/26/16 06:01 Anion Gap 15 Basophils # 0.1 Basophils % 0.6 Blood Morphology Comment Blood Urea Nitrogen 12 Calcium Level 8.4 Carbon Dioxide Level 27 Chloride Level 102 Creatinine 0.85 Eosinophils # 0.3 Eosinophils % 3.8 Glucose Level 90 Hematocrit 29.1 L Hemoglobin 9.5 L Lymphocytes # 2.3 Lymphocytes % 26.7 Mean Corpuscular Hemoglobin 24.8 L Mean Corpuscular Hemoglobin Concent 32.6 Mean Corpuscular Volume 76.0 L Mean Platelet Volume 7.8 Monocytes # 0.9 Monocytes % 10.9 Neutrophils # 4.9 Neutrophils % 58.0 Nucleated Red Blood Cells # 0.0 Nucleated Red Blood Cells % 0.0 Platelet Count 313 Potassium Level 4.3 Red Blood Count 3.83 L Red Cell Distribution Width 18.4 H Sodium Level 140 White Blood Count 8.5 Medications Medications Current Medications Enoxaparin Sodium (Lovenox) 120 mg Q12 SC Last administered on 1/10/17at 09:52 ; Admin Dose 120 MG; Start 08/22/16 at 21:00 Miscellaneous Medication (Bystolic) 5 mg DAILY PO Last administered on 09:45; Admin Dose 5 MG; Start 08/23/16 at 09:00 Morphine Sulfate (morphine) 4 mg Q4H PRN IV SEVERE PAIN LEVEL 7-10; Start at 17:00 Acetaminophen/ Hydrocodone Bitart ([place] (5/325)) 1 tab Q4H PRN PO MODERATE PAIN LEVEL 4-6 Last administered on 08/25/16 09:58; Admin Dose 1 TAB; Start 08/22 at 17:00 Acetaminophen (Tylenol Tab) 500 mg Q4H PRN PO PAIN AND OR ELEVATED TEMP; Start 08/22/16 at 17:00 Zolpidem Tartrate 5 mg 5 mg HS PRN PO INSOMNIA; Start 08/22/16 at 17:00 Sodium Chloride (1/2 NS) 1,000 ml @ 75 mls/hr [id number] IV Last administered on 08/25/16 18:19; Admin Dose 75 MLS/HR; Start 08/23/16 at 08:30 Pantoprazole (Protonix Tab) 40 mg DAILY@06 PO Last administered on 08/24/16 06: 07; Admin Dose 40 MG; Start 08/24/16 at 06:00 MARIA DEL ROSARIO ZAVALETA MD Aug 26, 2016 15:23
[2016-08-27] MEDS: PANTOPRAZOLE (EC) 40 MG TAB PO SCH (06:00)
[2016-08-27 06:26] LABS: BASOPHILS % 0.6 % (0.0-2.0); EOSINOPHILS # 0.4 10^3/ul (0.0-0.5); EOSINOPHILS % 5.2 % (0.0-7.0); HEMATOCRIT 30.1 % (37.0-47.0); HEMOGLOBIN 9.7 g/dl (12.0-16.0); LYMPHOCYTES # 2.4 10^3/ul (0.8-2.9); LYMPHOCYTES % 31.8 % (15.0-51.0); MEAN CORPUSCULAR HEMOGLOBIN 24.5 pg (29.0-33.0); MEAN CORPUSCULAR HGB CONC 32.2 g/dl (32.0-37.0); MEAN CORPUSCULAR VOLUME 76.2 fl (82.0-101.0); MEAN PLATELET VOLUME 7.5 fl (7.4-10.4); MONOCYTE # 0.7 10^3/ul (0.3-0.9); MONOCYTES % 9.7 % (0.0-11.0); NEUTROPHIL # 3.9 10^3/ul (1.6-7.5); NEUTROPHILS % 52.7 % (39.0-77.0); PLATELET COUNT 339 10^3/UL (140-440); RED BLOOD COUNT 3.96 10^6/ul (4.20-5.40); RED CELL DISTRIBUTION WIDTH 18.7 % (11.5-14.5); UNCORRECTED WBC 7.4 10^3/ul (4.8-10.8); WHITE BLOOD COUNT 7.4 10^3/ul (4.8-10.8)
[2016-08-27 06:36] LABS: CONDITION 1; LH ANALYZER COMMENTS 1
[2016-08-27 06:42] LABS: POTASSIUM 4.1 mmol/L (3.5-5.1)
[2016-08-27 06:45] LABS: CREATININE 0.88 mg/dl (0.44-1.00)
[2016-08-27 06:46] LABS: CALCIUM 8.9 mg/dl (8.4-10.2)
[2016-08-27 07:49] VITALS: BP 139/63; RESP 20
[2016-08-27] MEDS: FERROUS SULFATE (EC) 325 MG TAB PO SCH ×3 (08:47→20:30)
[2016-08-27] MEDS: NEBIVOLOL 5 MG TAB PO SCH (08:48)
[2016-08-27] MEDS: ENOXAPARIN 60 MG/0.6 ML SYG SC SCH ×2 (09:04→20:33)
--- NOTE | 2016-08-27 10:01 | PN ---
DATE: 08/27/2016 HEMATOLOGY PROGRESS NOTE The patient is feeling well. She has not complained of shortness of breath, cough, or chest pain. The patient remains on Lovenox. Iron studies done on 08/25/2016 demonstrated a serum iron at 25, iron binding capacity of 300%, satu ration of 8%, and a ferritin of 83. CBC this morning: White count 7400, hemoglobin 9.7, hematocrit 30.1, MCV 76.2 and platelet count 339,000. The coagulation workup is still pending. As suspected, this patient is definitely iron deficient. I feel this is on the basis of menstrual b lood loss. This may become more problematic as the patient is going to be on anticoagulation. We will start the patient on ferrous sulfate 325 mg 3 times a day to be taken with vitamin C-contain ing foods. If she cannot tolerate this, then iron may be given parenterally. Dictated By: CARLOS HAINES MD, SR/MARIELA Conf#: [id number] DID#: [id number]
--- NOTE | 2016-08-27 11:37 | CONS ---
DATE OF ADMISSION: 08/22/2016 DATE OF CONSULTATION: 08/27/2016 REQUESTING PHYSICIAN: Dr. Wei REASON FOR CONSULTATION: Right knee pain. HISTORY OF PRESENT ILLNESS: The patient is a 51-year-old woman who twisted her right knee in early July 2016. She had pain in the knee that was worse with pivoting and squatting. She had some t enderness in the right calf and presented to her primary doctor who ordered a Doppler of the lower e xtremities which was negative for a DVT. She had persistent pain and MRI of the knee on 08/15/2016 was performed at an outside imaging study and per the report from Dr. Wei and his history a nd physical there is a posterior horn medial meniscus tear with peripheral subluxation. However, th ere was also noted to be a clot in the popliteal vein. A followup Doppler study showed an acute pito p venous thrombosis on 08/22/2016 as well as pulmonary emboli on a CT angiogram of her chest. She i s now admitted for anticoagulation therapy. She is reporting now that her knee pain has resolved. She is able to ambulate and has no further pain in the knee. She denies any hip or groin pain that radiates down to her knee. She has had no fevers or chills. PAST MEDICAL HISTORY: 1. Hypertension. 2. Acute deep venous thrombosis, right lower extremity with bilateral pulmonary emboli. PAST SURGICAL HISTORY: . MEDICATIONS: 1. Lovenox. 2. Morphine. 3. [place]. 4. Ambien. 5. Bystolic. 6. Protonix. 7. Iron sulfate. ALLERGIES: NO KNOWN DRUG ALLERGIES. SOCIAL HISTORY: The patient is , has 1 son. She works in [employer]. FAMILY HISTORY: Noncontributory except for her father had a stroke. Her mother has hypertension. PHYSICAL EXAMINATION: VITAL SIGNS: Temperature 97.3, blood pressure 139/63, pulse 70, respiratory rate 20, saturation 96% on room air. GENERAL APPEARANCE: Well-developed, well-nourished 51-year-old male in no acute distress. ORIENTATION: Alert and oriented to person, place, and time. HEENT: Normocephalic, atraumatic, sclerae anicteric, no nasal discharge, oropharynx clear, dentition is good. SKIN: Normal color, texture, and turgor. No rashes noted throughout the trunk, bilateral upper extre mities, and bilateral lower extremities. NECK: Supple, nontender, without lymphadenopathy. No thyromegaly, no masses. CARDIAC: Regular rate and rhythm. LUNGS: Clear to auscultation bilaterally, with symmetric chest rise. ABDOMEN: Soft, nontender, nondistended. MUSCULOSKELETAL: The patient is lying comfortably in her hospital [facility]. Both hips are supple, wi th no pain on passive range of motion. The right knee has no effusion, no warmth, no redness. There is no medial or lateral joint line tenderness. The knee has range of motion of 0-125 degrees with no crepitus. There is no varus or valgus instability. Anterior drawer and Jazmyne tests are negati ve. Edda's test is negative. Patellar grind and inhibition are negative. NEUROVASCULAR EXAM LOWER EXTREMITIES: Motor strength is 5/5 in the quadriceps, tibialis anterior, ex tensor hallucis longus, gastroc-soleus, and peroneals bilaterally. Sensation is intact to light touc h throughout both lower extremities. There are 2+ palpable dorsalis pedis and posterior tibial pulse s, with capillary refill less than 2 seconds in all 5 digits bilaterally. There is no distal edema. IMAGING: X-rays of the right knee on 12 to 16 shows slight varus alignment but well preserved media l and lateral joint spaces with no significant degenerative changes. There are no fractures or bony lesions or subluxations or dislocations. ASSESSMENT AND PLAN: 1. Right knee posterior horn medial meniscus tear. 2. Acute right lower extremity deep venous thrombosis with bilateral pulmonary emboli. DISCUSSION: She does have a meniscal tear, but it is now asymptomatic. I would recommend observati on, especially in the setting of an acute DVT with pulmonary emboli. The patient may be weightbeari ng as tolerated on the right lower extremity. She will continue with anticoagulation therapy. I tanner ve asked her to follow up with me as an outpatient at a later date. I have advised her that at some point in the future if her meniscal tear becomes symptomatic again she may need to consider arthros copic partial meniscectomy, but I would recommend waiting at least 6 months to a year after treatmen t of the pulmonary embolism, so that we could then adequately take her off the anticoagulation. If there was any residual clot she could require an IVC filter prior to surgery if it ever came to that . She agrees with my input and will follow up with me on an outpatient basis at a later date. Dictated By: BYRON MEAD MD EZ/NTS Conf#: [id number] DID#: [id number] CC: NIKA WEI MD;*EndCC*
--- NOTE | 2016-08-27 14:24 | CONS ---
Date/Time of Note Date/Time of Note DATE: 08/27/16 TIME: 14:18 Consult Date/Type/Reason Admit Date/Time Aug 22, 2016 at 14:52 Initial Consult Date 08/23/16 Type of Consultation: Pulm Ordering Provider: NIKA WEI MD Subjective Comfortable, no shortness of breath at rest. Objective GENERAL: Well-nourished well-developed lady comfortable at rest VITAL SIGNS: per chart NECK: Supple. No JVD or lymphadenopathy. CARDIAC EXAM: S1, S2. No added sounds or murmurs. CHEST: clear bilaterally, No added sounds, rales or wheezes ABDOMEN: Soft, nontender. No guarding or rebound. EXTREMITIES: No cyanosis, clubbing or edema. NEUROLOGIC: Generalized weakness. No focal deficits. Vital Signs Date Time Temp Pulse Resp B/P Pulse Ox O2 Delivery O2 Flow Rate FiO2 08/27/16 07:49 97.3 70 20 139/63 96 08/26/16 20:00 Nasal Cannula 2.0 Intake and Output 08/26/16 08/26/16 08/27/16 14:59 22:59 06:59 Intake Total 150 ml 240 ml Balance 150 ml 240 ml Results/Medications Result Diagram: 08/27/16 0539 08/27/16 0539 Results 24 hrs Laboratory Tests Test 08/27/16 05:39 Anion Gap 15 Basophils # 0.0 Basophils % 0.6 Blood Morphology Comment Blood Urea Nitrogen 14 Calcium Level 8.9 Carbon Dioxide Level 29 Chloride Level 101 Creatinine 0.88 Eosinophils # 0.4 Eosinophils % 5.2 Glucose Level 97 Hematocrit 30.1 L Hemoglobin 9.7 L Lymphocytes # 2.4 Lymphocytes % 31.8 Mean Corpuscular Hemoglobin 24.5 L Mean Corpuscular Hemoglobin Concent 32.2 Mean Corpuscular Volume 76.2 L Mean Platelet Volume 7.5 Monocytes # 0.7 Monocytes % 9.7 Neutrophils # 3.9 Neutrophils % 52.7 Nucleated Red Blood Cells # 0.0 Nucleated Red Blood Cells % 0.0 Platelet Count 339 Potassium Level 4.1 Red Blood Count 3.96 L Red Cell Distribution Width 18.7 H Sodium Level 141 White Blood Count 7.4 Medications Current Medications Enoxaparin Sodium (Lovenox) 120 mg Q12 SC Last administered on 08/27/16t 09:04 ; Admin Dose 120 MG; Start 08/22/16 at 21:00 Miscellaneous Medication (Bystolic) 5 mg DAILY PO Last administered on 08:48; Admin Dose 5 MG; Start 08/23/16 at 09:00 Morphine Sulfate (morphine) 4 mg Q4H PRN IV SEVERE PAIN LEVEL 7-10; Start at 17:00 Acetaminophen/ Hydrocodone Bitart ([place] (5/325)) 1 tab Q4H PRN PO MODERATE PAIN LEVEL 4-6 Last administered on 08/25/16 09:58; Admin Dose 1 TAB; Start 08/22 at 17:00 Acetaminophen (Tylenol Tab) 500 mg Q4H PRN PO PAIN AND OR ELEVATED TEMP; Start 08/22/16 at 17:00 Zolpidem Tartrate (Ambien) 5 mg HS PRN PO INSOMNIA; Start 08/22/16 at 17:00 Pantoprazole (Protonix Tab) 40 mg DAILY@06 PO Last administered on 08/24/16 06: 07; Admin Dose 40 MG; Start 08/24/16 at 06:00 Ferrous Sulfate (Ferrous Sulfate (Ec)) 325 mg TID PO Last administered on 13:05; Admin Dose 325 MG; Start 08/27/16 at 09:00 Assessment/Plan Chief Complaint/Hosp Course Assessment 1. Acute DVT and pulmonary embolus, questionable hypercoagulable state 2. Mild anemia 3. Possible underlying obstructive sleep apnea Plan 1. Continue anti-coagulation with Lovenox 2. Consider initiation with factor X A antagonist 3. Consider outpatient sleep study for workup of obstructive sleep apnea 4. Hypercoagulable workup in place Problems: BLANCA BARNARD MD, [facility] Aug 27, 2016 14:23
[2016-08-27 15:49] LABS: PROTEIN C 115 % normal (70-180)
--- NOTE | 2016-08-27 16:07 | PN ---
DATE: 08/27/2016 SUBJECTIVE: The patient has mild cough without hemoptysis. Gets short of breath on mild exertion. Denies any chest pain. Right thigh pain is improved. PHYSICAL EXAMINATION: GENERAL: The patient is in no acute distress. VITAL SIGNS: Temperature is 97.3, blood pressure 139/63, O2 sats 92% on 2 liters nasal O2. CHEST: Decreased breath sounds at bases. HEART: S1, S2 heard with no murmurs or gallops. EXTREMITIES: No edema. LABORATORY DATA: WBC 7.4, hematocrit 30.1, platelet count of 339,000, sodium 141, potassium 4.1, BU N 14, creatinine 0.88. Patient had been seen by Dr. Mayen whose consultation is much appreciated. ASSESSMENT AND PLAN: 1. Acute lower extremity deep vein thrombosis femoral and popliteal vein with bilateral pulmonary e mboli, including one of the pulmonary artery on the right. 2. Right knee posterior horn medial meniscus tear which may have precipitated the DVT. 3. Iron deficiency anemia. 4. Hypertension. PLAN: The patient has already been started on iron supplements. We will continue Lovenox for now a long with GI prophylaxis, gradually increase activity, assess her oxygen needs and we will consider switching her to Eliquis after discussion with Dr. Andrade and Dr. Lemus. Dictated By: NIKA WEI MD, SR/NTS Conf#: [id number] DID#: [id number]
[2016-08-27 19:22] VITALS: BP 128/63; RESP 18
[2016-08-28] MEDS: PANTOPRAZOLE (EC) 40 MG TAB PO SCH (05:49)
[2016-08-28 08:02] VITALS: BP 128/68; RESP 16
--- NOTE | 2016-08-28 08:29 | PN ---
Date/Time of Note Date/Time of Note DATE: 08/28/16 TIME: 08:25 Assessment/Plan VTE Prophylaxis VTE Prophylaxis Intervention: LMWH Lines/Catheters [facility] [place] Urinary Cath still in place: No Assessment/Plan Assessment/Plan Pt is tolerating the oral iron well. It should be continued after discharge. She is also on anticoagulation that should be continued after her discharge. The thrombophilia evaluation is pending and results should be ready next week. These will not affect the treatment now but would impact the duration of treatment. After discharge, she should f/u with Dr. Lemus in the office. Subjective 24 Hr Interval Summary Free Text/Dictation Pt is comfortable. She is tolerating the oral iron without dyspepsia. Exam/Review of Systems Vital Signs Vitals Vital Signs Date Time Temp Pulse Resp B/P Pulse Ox O2 Delivery O2 Flow Rate FiO2 08/28/16 08:02 98.2 71 16 128/68 91 08/28/16 04:05 2.0 08/27/16 20:00 Nasal Cannula Intake and Output 08/27/16 08/27/16 08/28/16 15:00 23:00 07:00 Intake Total 480 ml 180 ml Balance 480 ml 180 ml Exam Constitutional: alert, oriented Psych: no complaints Head: normocephalic Eyes: other (pallor) Respiratory: clear to auscultation Cardiovascular: regular rate and rhythm Gastrointestinal: non-tender, soft Results Result Diagram: 08/27/16 0539 08/27/16 0539 Medications Medications Current Medications Enoxaparin Sodium (Lovenox) 120 mg Q12 SC Last administered on 08/27/16 20:33 ; Admin Dose 120 MG; Start 08/22/16 at 21:00 Miscellaneous Medication (Bystolic) 5 mg DAILY PO Last administered on 08:48; Admin Dose 5 MG; Start 08/23/16 at 09:00 Morphine Sulfate (morphine) 4 mg Q4H PRN IV SEVERE PAIN LEVEL 7-10; Start at 17:00 Acetaminophen/ Hydrocodone Bitart ([place] (5/325)) 1 tab Q4H PRN PO MODERATE PAIN LEVEL 4-6 Last administered on 08/25/16 09:58; Admin Dose 1 TAB; Start 08/22 at 17:00 Acetaminophen (Tylenol Tab) 500 mg Q4H PRN PO PAIN AND OR ELEVATED TEMP; Start 08/22/16 at 17:00 Zolpidem Tartrate (Ambien) 5 mg HS PRN PO INSOMNIA; Start 08/22/16 at 17:00 Pantoprazole (Protonix Tab) 40 mg DAILY@06 PO Last administered on 08/24/16 06: 07; Admin Dose 40 MG; Start 08/24/16 at 06:00 Ferrous Sulfate (Ferrous Sulfate (Ec)) 325 mg TID PO Last administered on 20:30; Admin Dose 325 MG; Start 08/27/16 at 09:00 MARIA DEL ROSARIO ZAVALETA MD Aug 28, 2016 08:29
[2016-08-28] MEDS: FERROUS SULFATE (EC) 325 MG TAB PO SCH ×3 (08:46→20:24)
[2016-08-28] MEDS: NEBIVOLOL 5 MG TAB PO SCH (08:47)
[2016-08-28] MEDS: ENOXAPARIN 60 MG/0.6 ML SYG SC SCH (08:51)
--- NOTE | 2016-08-28 11:30 | CONS ---
Date/Time of Note Date/Time of Note DATE: 08/28/16 TIME: 11:28 Consult Date/Type/Reason Admit Date/Time Aug 22, 2016 at 14:52 Initial Consult Date 08/23/16 Type of Consultation: Pulm Ordering Provider: NIKA WEI MD Subjective Patient stable this morning less shortness of breath Supplemental oxygen Remains hemodynamically stable Objective Vital Signs Date Time Temp Pulse Resp B/P Pulse Ox O2 Delivery O2 Flow Rate FiO2 08/28/16 08:02 98.2 71 16 128/68 91 08/28/16 04:05 2.0 08/27/16 20:00 Nasal Cannula Intake and Output 08/27/16 08/27/16 08/28/16 15:00 23:00 07:00 Intake Total 480 ml 180 ml Balance 480 ml 180 ml GENERAL: Well-nourished well-developed lady comfortable at rest VITAL SIGNS: per chart NECK: Supple. No JVD or lymphadenopathy. CARDIAC EXAM: S1, S2. No added sounds or murmurs. CHEST: clear bilaterally, No added sounds, rales or wheezes ABDOMEN: Soft, nontender. No guarding or rebound. EXTREMITIES: No cyanosis, clubbing or edema. NEUROLOGIC: Generalized weakness. No focal deficits. Results/Medications Result Diagram: 08/27/16 0539 08/27/16 0539 Medications Current Medications Enoxaparin Sodium (Lovenox) 120 mg Q12 SC Last administered on 08/28/16 08:51 ; Admin Dose 120 MG; Start 08/22/16 at 21:00 Miscellaneous Medication (Bystolic) 5 mg DAILY PO Last administered on 08:47; Admin Dose 5 MG; Start 08/23/16 at 09:00 Morphine Sulfate (morphine) 4 mg Q4H PRN IV SEVERE PAIN LEVEL 7-10; Start at 17:00 Acetaminophen/ Hydrocodone Bitart ([place] (5/325)) 1 tab Q4H PRN PO MODERATE PAIN LEVEL 4-6 Last administered on 08/25/16 09:58; Admin Dose 1 TAB; Start 08/22 at 17:00 Acetaminophen (Tylenol Tab) 500 mg Q4H PRN PO PAIN AND OR ELEVATED TEMP; Start 08/22/16 at 17:00 Zolpidem Tartrate (Ambien) 5 mg HS PRN PO INSOMNIA; Start 08/22/16 at 17:00 Pantoprazole (Protonix Tab) 40 mg DAILY@06 PO Last administered on 08/24/16 06: 07; Admin Dose 40 MG; Start 08/24/16 at 06:00 Ferrous Sulfate (Ferrous Sulfate (Ec)) 325 mg TID PO Last administered on 08:46; Admin Dose 325 MG; Start 08/27/16 at 09:00 Assessment/Plan Chief Complaint/Hosp Course MRI Assessment 1. Acute DVT and pulmonary embolus, questionable hypercoagulable state 2. Mild anemia 3. Possible underlying obstructive sleep apnea Normal when the leg followin. start xeralto 15mg bid x 21 days then 20mg daily 2. Encourage activities 3. Consider outpatient sleep study for workup of obstructive sleep apnea 4. Hypercoagulable workup in place Problems: BLANCA BARNARD MD, [facility] Aug 28, 2016 11:29
--- NOTE | 2016-08-28 13:19 | PN ---
Date/Time of Note Date/Time of Note DATE: 08/28/16 TIME: 13:11 Assessment/Plan VTE Prophylaxis VTE Prophylaxis Intervention: other Lines/Catheters IV Catheter Type (from Nrs): Saline Lock Urinary Cath still in place: No Assessment/Plan Assessment/Plan DVT, PE changed from lovenox to xarelto per pulmonary. Hypercoagulable w/u pending anemia Plan- xarelto as per pulm monitor labs cont other rx Subjective 24 Hr Interval Summary Free Text/Dictation Covering for Dr. Davis. Pt with DVT and PE, anemia switched from lovenox to xarelto. Breathing improved. No cp, sob, dizziness, palpitations, abd pain, brbpr, melena. Some menstrual bleeding. Exam/Review of Systems Vital Signs Vitals Vital Signs Date Time Temp Pulse Resp B/P Pulse Ox O2 Delivery O2 Flow Rate FiO2 08/28/16 08:02 98.2 71 16 128/68 91 08/28/16 04:05 2.0 08/27/16 20:00 Nasal Cannula Intake and Output 08/27/16 08/27/16 08/28/16 14:59 22:59 06:59 Intake Total 480 ml 180 ml Balance 480 ml 180 ml Exam gen - nad, nontoxic lungs - CTA heart - RRR abd - +BS, soft, nontender. ext - no cce. Results Result Diagram: 08/27/16 0539 08/27/16 0539 Results 24 hrs Laboratory Tests Test 08/28/16 12:01 Lab Scanned Report REFERENCE LAB Medications Medications Current Medications Miscellaneous Medication (Bystolic) 5 mg DAILY PO Last administered on 08:47; Admin Dose 5 MG; Start 08/23/16 at 09:00 Morphine Sulfate (morphine) 4 mg Q4H PRN IV SEVERE PAIN LEVEL 7-10; Start at 17:00 Acetaminophen/ Hydrocodone Bitart ([place] (5/325)) 1 tab Q4H PRN PO MODERATE PAIN LEVEL 4-6 Last administered on 08/25/16 09:58; Admin Dose 1 TAB; Start 08/22 at 17:00 Acetaminophen (Tylenol Tab) 500 mg Q4H PRN PO PAIN AND OR ELEVATED TEMP; Start 08/22/16 at 17:00 Zolpidem Tartrate (Ambien) 5 mg HS PRN PO INSOMNIA; Start 08/22/16 at 17:00 Pantoprazole (Protonix Tab) 40 mg DAILY@06 PO Last administered on 08/24/16 06: 07; Admin Dose 40 MG; Start 08/24/16 at 06:00 Ferrous Sulfate (Ferrous Sulfate (Ec)) 325 mg TID PO Last administered on 12:53; Admin Dose 325 MG; Start 08/27/16 at 09:00 HANANE CARIAS MD Aug 28, 2016 13:18
[2016-08-28] MEDS: RIVAROXABAN 15 MG TABLET PO SCH (17:51)
[2016-08-28 19:00] VITALS: BP 105/57; RESP 18
[2016-08-29] MEDS: PANTOPRAZOLE (EC) 40 MG TAB PO SCH (05:43)
[2016-08-29 06:24] LABS: BASOPHIL # 0.1 10^3/ul (0.0-0.1); EOSINOPHILS # 0.4 10^3/ul (0.0-0.5); EOSINOPHILS % 6.7 % (0.0-7.0); HEMATOCRIT 30.2 % (37.0-47.0); HEMOGLOBIN 9.9 g/dl (12.0-16.0); LYMPHOCYTES # 2.5 10^3/ul (0.8-2.9); LYMPHOCYTES % 37.6 % (15.0-51.0); MEAN CORPUSCULAR HEMOGLOBIN 24.9 pg (29.0-33.0); MEAN CORPUSCULAR HGB CONC 32.6 g/dl (32.0-37.0); MEAN CORPUSCULAR VOLUME 76.2 fl (82.0-101.0); MEAN PLATELET VOLUME 7.3 fl (7.4-10.4); MONOCYTE # 0.7 10^3/ul (0.3-0.9); MONOCYTES % 9.9 % (0.0-11.0); NEUTROPHILS % 44.8 % (39.0-77.0); PLATELET COUNT 378 10^3/UL (140-440); RED BLOOD COUNT 3.96 10^6/ul (4.20-5.40); RED CELL DISTRIBUTION WIDTH 18.6 % (11.5-14.5); UNCORRECTED WBC 6.7 10^3/ul (4.8-10.8); WHITE BLOOD COUNT 6.7 10^3/ul (4.8-10.8)
[2016-08-29 06:34] LABS: CONDITION 1; LH ANALYZER COMMENTS 1
[2016-08-29 06:42] LABS: POTASSIUM 4.6 mmol/L (3.5-5.1)
[2016-08-29 06:44] LABS: CREATININE 0.87 mg/dl (0.44-1.00)
[2016-08-29 06:45] LABS: CALCIUM 8.8 mg/dl (8.4-10.2)
[2016-08-29 07:41] VITALS: BP 119/59; RESP 16
[2016-08-29] MEDS: FERROUS SULFATE (EC) 325 MG TAB PO SCH ×2 (08:18→12:31)
[2016-08-29] MEDS: RIVAROXABAN 15 MG TABLET PO SCH (08:18)
[2016-08-29] MEDS: NEBIVOLOL 5 MG TAB PO SCH (08:19)
--- NOTE | 2016-08-29 10:56 | PN ---
Date/Time of Note Date/Time of Note DATE: 08/29/16 TIME: 10:54 Assessment/Plan VTE Prophylaxis VTE Prophylaxis Intervention: other Lines/Catheters [facility] Saline Lock Urinary Cath still in place: No Assessment/Plan Assessment/Plan Thrombophilia evaluation is pending. If she is discharged, please remind her to f/u with Dr. Lemus in about a week. No new suggestions. Continue oral iron and anticoagulation. Subjective 24 Hr Interval Summary Constitutional: no complaints Exam/Review of Systems Vital Signs Vitals Vital Signs Date Time Temp Pulse Resp B/P Pulse Ox O2 Delivery O2 Flow Rate FiO2 08/29/16 07:41 98.4 74 16 119/59 94 08/28/16 20:00 Nasal Cannula 2.0 Intake and Output 08/28/16 08/28/16 08/29/16 15:00 23:00 07:00 Intake Total 720 ml 600 ml Balance 720 ml 600 ml Exam Constitutional: alert, oriented Psych: no complaints Eyes: nl conjunctiva Neck: supple Respiratory: clear to auscultation Cardiovascular: regular rate and rhythm Gastrointestinal: soft Results Result Diagram: 08/29/16 0525 08/29/16 0525 Results 24 hrs Laboratory Tests Test 08/28/16 12:01 08/29/16 05:25 Lab Scanned Report REFERENCE LAB Anion Gap 15 Basophils # 0.1 Basophils % 1.0 Blood Morphology Comment Blood Urea Nitrogen 14 Calcium Level 8.8 Carbon Dioxide Level 31 Chloride Level 102 Creatinine 0.87 Eosinophils # 0.4 Eosinophils % 6.7 Glucose Level 88 Hematocrit 30.2 L Hemoglobin 9.9 L Lymphocytes # 2.5 Lymphocytes % 37.6 Mean Corpuscular Hemoglobin 24.9 L Mean Corpuscular Hemoglobin Concent 32.6 Mean Corpuscular Volume 76.2 L Mean Platelet Volume 7.3 L Monocytes # 0.7 Monocytes % 9.9 Neutrophils # 3.0 Neutrophils % 44.8 Nucleated Red Blood Cells # 0.0 Nucleated Red Blood Cells % 0.0 Platelet Count 378 Potassium Level 4.6 Red Blood Count 3.96 L Red Cell Distribution Width 18.6 H Sodium Level 143 White Blood Count 6.7 Medications Medications Current Medications Miscellaneous Medication (Bystolic) 5 mg DAILY PO Last administered on t 08:19; Admin Dose 5 MG; Start 08/23/16 at 09:00 Morphine Sulfate (morphine) 4 mg Q4H PRN IV SEVERE PAIN LEVEL 7-10; Start at 17:00 Acetaminophen/ Hydrocodone Bitart ([place] (5/325)) 1 tab Q4H PRN PO MODERATE PAIN LEVEL 4-6 Last administered on 08/25/16 09:58; Admin Dose 1 TAB; Start 08/22 at 17:00 Acetaminophen (Tylenol Tab) 500 mg Q4H PRN PO PAIN AND OR ELEVATED TEMP Last administered on 08/28/16 14:31; Admin Dose 500 MG; Start 08/22/16 at 17:00 Zolpidem Tartrate (Ambien) 5 mg HS PRN PO INSOMNIA; Start 08/22/16 at 17:00 Pantoprazole (Protonix Tab) 40 mg DAILY@06 PO Last administered on 08/24/16 06: 07; Admin Dose 40 MG; Start 08/24/16 at 06:00 Ferrous Sulfate (Ferrous Sulfate (Ec)) 325 mg TID PO Last administered on 08:18; Admin Dose 325 MG; Start 08/27/16 at 09:00 MARIA DEL ROSARIO ZAVALETA MD Aug 29, 2016 10:56
--- NOTE | 2016-08-29 14:00 | PN ---
DATE: 08/29/2016 PULMONARY FOLLOWUP: SUBJECTIVE: Chart reviewed. Events noted. Patient is currently on 2 liters O2 nasal cannula, satu rating 94%. PHYSICAL EXAMINATION: VITAL SIGNS: Blood pressure 119/59, pulse 74, respirations 16, temperature 98.4. HEENT: Pupils are equal and reactive to light. Anicteric sclerae. NECK: Supple. No JVD noted, no cervical adenopathy noted, no carotid bruits heard. LUNGS: Fair breath sounds bilaterally. CARDIOVASCULAR: S1, S2 normal. ABDOMEN: Soft, nontender. No organomegaly or masses noted. EXTREMITIES: No clubbing, cyanosis, or edema noted. NEUROLOGICAL: Awake and alert. LABORATORY: WBC 6.7, hemoglobin 9.9, hematocrit 30.2, platelets 378. Sodium 143, potassium 4.6, ch loride 102, CO2 31, BUN 14, creatinine 0.87, glucose 88. IMPRESSION: 1. Deep vein thrombosis and pulmonary embolism. 2. Rule out hypercoagulable state. 3. Anemia. 4. Possible underlying obstructive sleep apnea. RECOMMENDATIONS: 1. Patient has been switched to Xarelto. 2. Patient is okay to be discharged from a pulmonary perspective. 3. Outpatient followup with hematology for hypercoaguable state workup. 4. Patient should have an outpatient sleep study to rule out sleep apnea. Dictated By: OMAYRA ROWE MD, MA/MARIELA Conf#: [id number] DID#: [id number]
--- NOTE | 2016-08-29 15:27 | PN ---
Date/Time of Note Date/Time of Note DATE: 08/29/16 TIME: 15:18 Assessment/Plan VTE Prophylaxis VTE Prophylaxis Intervention: other Lines/Catheters IV Catheter Type (from Nrsg): Saline Lock Urinary Cath still in place: No Assessment/Plan Assessment/Plan DVT and PE HTN fe def anemia meniscus tear rt knee D/C home xarelto 15mg bid x 20days more, then 20mg daily, protonix 40mg daily, feso4 tid , bystolic 5mg daily tylenol prn pain no asa, nsaids f/u with Dr. Davis next week, Dr. Lemus 1week, Dr. Andrade 2weeks Subjective 24 Hr Interval Summary Free Text/Dictation Pt feeling well, no cp, sob, abd pain. Ambulating without prob except some knee pain. On xarelto 15mg bid. Exam/Review of Systems Vital Signs Vitals Vital Signs Date Time Temp Pulse Resp B/P Pulse Ox O2 Delivery O2 Flow Rate FiO2 08/29/16 07:41 98.4 74 16 119/59 94 08/28/16 20:00 Nasal Cannula 2.0 Intake and Output 08/28/16 08/28/16 08/29/16 15:00 23:00 07:00 Intake Total 720 ml 600 ml Balance 720 ml 600 ml Exam gen- nad, nontoxic lungs- cta heart- regular rate and rhythm ext- no cc, tr edema Results Result Diagram: 08/29/16 0525 08/29/16 0525 Results 24 hrs Laboratory Tests Test 08/29/16 05:25 Anion Gap 15 Basophils # 0.1 Basophils % 1.0 Blood Morphology Comment Blood Urea Nitrogen 14 Calcium Level 8.8 Carbon Dioxide Level 31 Chloride Level 102 Creatinine 0.87 Eosinophils # 0.4 Eosinophils % 6.7 Glucose Level 88 Hematocrit 30.2 L Hemoglobin 9.9 L Lymphocytes # 2.5 Lymphocytes % 37.6 Mean Corpuscular Hemoglobin 24.9 L Mean Corpuscular Hemoglobin Concent 32.6 Mean Corpuscular Volume 76.2 L Mean Platelet Volume 7.3 L Monocytes # 0.7 Monocytes % 9.9 Neutrophils # 3.0 Neutrophils % 44.8 Nucleated Red Blood Cells # 0.0 Nucleated Red Blood Cells % 0.0 Platelet Count 378 Potassium Level 4.6 Red Blood Count 3.96 L Red Cell Distribution Width 18.6 H Sodium Level 143 White Blood Count 6.7 Medications Medications Current Medications Miscellaneous Medication (Bystolic) 5 mg DAILY PO Last administered on 08:19; Admin Dose 5 MG; Start 08/23/16 at 09:00 Morphine Sulfate (morphine) 4 mg Q4H PRN IV SEVERE PAIN LEVEL 7-10; Start at 17:00 Acetaminophen/ Hydrocodone Bitart ([place] (5/325)) 1 tab Q4H PRN PO MODERATE PAIN LEVEL 4-6 Last administered on 08/25/16 09:58; Admin Dose 1 TAB; Start 08/22 at 17:00 Acetaminophen (Tylenol Tab) 500 mg Q4H PRN PO PAIN AND OR ELEVATED TEMP Last administered on 08/28/16 14:31; Admin Dose 500 MG; Start 08/22/16 at 17:00 Zolpidem Tartrate (Ambien) 5 mg HS PRN PO INSOMNIA; Start 08/22/16 at 17:00 Pantoprazole (Protonix Tab) 40 mg DAILY@06 PO Last administered on 08/24/16 06: 07; Admin Dose 40 MG; Start 08/24/16 at 06:00 Ferrous Sulfate (Ferrous Sulfate (Ec)) 325 mg TID PO Last administered on 12:31; Admin Dose 325 MG; Start 08/27/16 at 09:00 HANANE CARIAS MD Aug 29, 2016 15:27
--- NOTE | 2016-08-29 15:29 | PDOCDIS ---
Discharge Instructions CONDITION Patient Condition: Stable HOME CARE INSTRUCTIONS: Diet Instructions: RegularSpecial Diet: Low Fat/Low Chol ACTIVITY: Activity Restrictions: Slowly Increase Activity Rest between Activity Avoid heavy lifting Bathing Restrictions: Shower FOLLOW UP/APPOINTMENTS Appointments Dr. Davsi next week Dr. Lemus 1week [address]. Andrade 2weeks HANANE CARIAS MD Aug 29, 2016 15:29
[2016-08-29] MEDS ORDERED: RIVA15TA PO (15:33)
[2016-08-29] MEDS ORDERED: PANT40TA4 PO (15:33)
[2016-08-29] MEDS ORDERED: TYL500 PO (15:33)
[2016-08-29] MEDS ORDERED: FER325 PO (15:33)
== END 2016-08-29 17:05 | disposition home or self-care (01) | DRG 299 ==
LOC: RAD 12:16 → EDSTATUS 14:06 → MS1 14:52 → ICU 08-23 14:51 → TEL 08-24 15:42 → MS2 08-26 20:10
PROVIDERS: ADMIT Internal Medicine; ATTEND Internal Medicine
DX: I82.411 Acute embolism and thrombosis of right femoral vein (principal); I26.99 Other pulmonary embolism without acute cor pulmonale; I10 Essential (primary) hypertension; D50.9 Iron deficiency anemia, unspecified; M23.221 Derangement of posterior horn of medial meniscus due to old tear or injury, right knee; G47.33 Obstructive sleep apnea (adult) (pediatric)
CPT/HCPCS: 71020; 71275; 80048; 80053; 80061; 81240; 82728; 83090; 83540; 83735; 83880; 83890; 84484; 85025; 85302; 85305; 85378; 85384; 85610; 85613; 85730; 87081; 93005; 93306; 93971; Q9967

== ENCOUNTER 2016-09-09 17:35 | Inpatient (IN) | payer BC ==
[~2016-09-09] VITALS: Ht 177.8 cm; Wt 132.6 kg
[~2016-09-09 17:35] MED LIST changes: +FER325 PO; +PANT40TA4 PO; +RIVA15TA PO; +TYL500 PO
--- NOTE | 2016-09-09 18:56 | ERA ---
ER Documentation Chief Complaint Date/Time DATE: 09/09/16 TIME: 18:52 Chief Complaint sent by pmd, possible anemia, dizziness, pale HPI 51-year-old female with history of hypertension recently diagnosed with DVT and pulmonary emboli on Xarelto ambulatory to the ED complaining weakness, lightheadedness and exertional dyspnea. Her last menstrual period began on August 22 but recently has been having markedly increased bleeding almost continuously throughout the day. Denies headache, neck pain, visual changes, focal weakness or numbness. No chest pain or palpitations. Denies abdominal pain, nausea or vomiting. No hematemesis or hematochezia. No cough or hemoptysis. Denies dysuria or polyuria. Hematuria although this may be related to the vaginal bleeding. No fevers or chills. ROS All systems reviewed and are negative except as per history of present illness. Medications Home Meds Active Scripts Rivaroxaban* (Xarelto*) 15 Mg Tablet, 15 MG PO BID WITH MEALS for 20 Days, #40 TAB Prov:HANANE CARIAS MD 08/29/16 Ferrous Sulfate* (Ferrous Sulfate*) 325 Mg Tabec, 325 MG PO TID for 30 Days, # 90 TAB Prov:HANANE CARIAS MD 08/29/16 Reported Medications Nebivolol* (Bystolic*) 5 Mg Tab, 5 MG PO DAILY 09/05/13 Discontinued Scripts Pantoprazole* (Pantoprazole*) 40 Mg Tablet.dr, 40 MG PO DAILY@06 for 30 Days, # 30 Prov:HANANE CARIAS MD 08/29/16 Acetaminophen* (Tylenol*) 500 Mg Tab, 500 MG PO Q4H Y for PAIN AND OR ELEVATED TEMP for 30 Days, #100 TAB Prov:HANANE CARIAS MD 08/29/16 Allergies Allergies: Coded Allergies: No Known Allergy (Unverified , 09/09/16) PMhx/Soc Reviewed in chart. As per HPI. History of Surgery: Yes () Anesthesia Reaction: No Hx Neurological Disorder: No Hx Respiratory Disorders: No Hx Cardiac Disorders: Yes (htn, pulmonary embolism) Hx Psychiatric Problems: No Hx Miscellaneous Medical Probl: Yes (DVT) Hx Alcohol Use: Yes (Social) Hx Substance Use: No Hx Tobacco Use: No FmHx Father: CVA. Mother: Hypertension. No diabetes, hypertension or hypercoagulable states. Physical Exam Vitals Vital Signs Date Time Temp Pulse Resp B/P Pulse Ox O2 Delivery O2 Flow Rate FiO2 09/09/16 19:45 89 20 144/95 100 Room Air 09/09/16 17:40 98.2 97 18 111/53 100 Physical Exam Const: Alert, no acute distress, pale Head: Atraumatic Eyes: Pale conjunctiva ENT: Normal External Ears, Nose and Mouth. Neck: Full range of motion. Nontender Resp: Clear to auscultation bilaterally Cardio: Regular rate and rhythm, no murmurs Abd: Soft, non tender, non distended. Normal bowel sounds Skin: No petechiae or rashes Back: No midline or flank tenderness Ext: No cyanosis, or edema Neur: Awake and alert. No focal deficit observed. Psych: Normal Mood and Affect Result Diagram: 09/09/16190409/09/161904 Results 24 hrs Laboratory Tests Test 09/09/16 19:05 Activated Partial Thromboplast Time 27.3Sec Alanine Aminotransferase (ALT/SGPT) 30IU/L Albumin 3.5g/dl Albumin/Globulin Ratio 1.16 Alkaline Phosphatase 79IU/L Anion Gap 19 Aspartate Amino Transf (AST/SGOT) 15IU/L Basophils # 0.110^3/ul Basophils % 0.8% Blood Morphology Comment Blood Urea Nitrogen 16mg/dl Calcium Level 8.2mg/dl Carbon Dioxide Level 23mmol/L Chloride Level 101mmol/L Creatinine 1.06mg/dl Differential Comment AUTO w/SCA Direct Bilirubin 0.00mg/dl Eosinophils # 0.110^3/ul Eosinophils % 1.0% Globulin 3.00g/dl Glucose Level 127mg/dl Hematocrit 15.2% Hemoglobin 4.9g/dl INR International Normalized Ratio 1.44 Indirect Bilirubin 0.3mg/dl Lymphocytes # 2.910^3/ul Lymphocytes % 23.3% Mean Corpuscular Hemoglobin 25.8pg Mean Corpuscular Hemoglobin Concent 31.9g/dl Mean Corpuscular Volume 80.8fl Mean Platelet Volume 7.8fl Monocytes # 0.410^3/ul Monocytes % 3.5% Neutrophils # 8.810^3/ul Neutrophils % 71.4% Nucleated Red Blood Cells # 0.010^3/ul Nucleated Red Blood Cells % 0.0/100WBC Platelet Count 08481^3/UL Potassium Level 4.6mmol/L Prothrombin Time 17.6Sec Prothrombin Time Ratio 1.4 Red Blood Count 1.8810^6/ul Red Cell Distribution Width 26.0% Sodium Level 138mmol/L Total Bilirubin 0.3mg/dl Total Protein 6.5g/dl White Blood Count 12.310^3/ul Current Medications Medications (Trade) Dose Ordered Sig/Lisa Route PRN Reason Start Time Stop Time Status Last Admin Dose Admin Ondansetron HCl (Zofran Inj) 4 mg ER BRIDGE PRN IV NAUSEA AND/OR VOMITING 09/09/16 20:30 09/10/16 20:29 Acetaminophen (Tylenol Tab) 650 mg ER BRIDGE PRN PO MILD PAIN/FEVER 09/09/16 20:30 09/10/16 20:29 Procedures/MDM DOCUMENTS REVIEWED: ED nurse, prior ED, prior records MEDICAL DECISION MAKIN-year-old female with history of hypertension recently diagnosed with DVT and pulmonary emboli on Xarelto ambulatory to the ED complaining weakness, lightheadedness and exertional dyspnea. Patient with severe anemia, H/H 4.9/15.2 due to vaginal bleeding secondary to factor Xa coagulopathy which she is receiving for DVT/PE. Risks and benefits of blood transfusion including allergic reaction, lung injury, infectious diseases such as hepatitis C and HIV are explained and understood; informed consent obtained. Patient typed and crossed for 3 units of packed red blood cells. She will be admitted to telemetry for further evaluation and management. Counseled patient and family regarding diagnosis, diagnostic results and plan for admission. CALLS/CONSULTS: Time 20:15, Dr. Davis, Recommends transfusion and admission to telemetry. PATIENT CARE TRANSITIONED: Time: 20: 25, Dr. Davis. Departure Diagnosis: Primary Impression: Severe anemia Additional Impressions: Coagulopathy Pulmonary embolism Qualified Code: I26.99 - Other acute pulmonary embolism without acute cor pulmonale Deep vein thrombosis Qualified Code: I82.401 - Deep vein thrombosis (DVT) of right lower extremity , unspecified chronicity, unspecified vein Condition: Serious FRANK GONZALEZ MD Sep 09, 2016 18:56
[2016-09-09 19:30] LABS: INR 1.44; PROTIME 17.6 Sec (12.2-14.2); PT RATIO 1.4
[2016-09-09 19:31] LABS: ALBUMIN 3.5 g/dl (3.3-4.9); PARTIAL THROMBOPLASTIN TIME 27.3 Sec (25.0-35.0)
[2016-09-09 19:32] LABS: POTASSIUM 4.6 mmol/L (3.5-5.1)
[2016-09-09 19:34] LABS: ALBUMIN/GLOBULIN RATIO 1.16; BILIRUBIN,INDIRECT 0.3 mg/dl (0-1.1); BILIRUBIN,TOTAL 0.3 mg/dl (0.2-1.3); CREATININE 1.06 mg/dl (0.44-1.00); TOTAL PROTEIN 6.5 g/dl (6.1-8.1)
[2016-09-09 19:35] LABS: CALCIUM 8.2 mg/dl (8.4-10.2)
[2016-09-09 19:44] LABS: BASOPHIL # 0.1 10^3/ul (0.0-0.1); BASOPHILS % 0.8 % (0.0-2.0); EOSINOPHILS # 0.1 10^3/ul (0.0-0.5); HEMATOCRIT 15.2 % (37.0-47.0); LYMPHOCYTES # 2.9 10^3/ul (0.8-2.9); LYMPHOCYTES % 23.3 % (15.0-51.0); MEAN CORPUSCULAR HEMOGLOBIN 25.8 pg (29.0-33.0); MEAN CORPUSCULAR HGB CONC 31.9 g/dl (32.0-37.0); MEAN CORPUSCULAR VOLUME 80.8 fl (82.0-101.0); MEAN PLATELET VOLUME 7.8 fl (7.4-10.4); MONOCYTE # 0.4 10^3/ul (0.3-0.9); MONOCYTES % 3.5 % (0.0-11.0); NEUTROPHIL # 8.8 10^3/ul (1.6-7.5); NEUTROPHILS % 71.4 % (39.0-77.0); PLATELET COUNT 388 10^3/UL (140-440); RED BLOOD COUNT 1.88 10^6/ul (4.20-5.40); UNCORRECTED WBC 12.3 10^3/ul (4.8-10.8)
[2016-09-09 19:54] LABS: CONDITION 1; LH ANALYZER COMMENTS 1; SUSPECT 1
[2016-09-09 19:57] LABS: HEMOGLOBIN 4.9 g/dl (12.0-16.0)
[2016-09-09] MEDS ORDERED: ONDANSETRON 4 MG INJ IV PRN (20:30)
[2016-09-09] MEDS ORDERED: ACETAMINOPHEN 325 MG TAB PO PRN (20:30)
[2016-09-10] VITALS (13 sets, daily range): BP systolic 108–124; BP diastolic 49–59; PULSE 70–83; RESP 16–20; TEMP 98.4; Ht 177.8 cm; Wt 132.6 kg
[2016-09-10] MEDS ORDERED: ACETAMINOPHEN 500 MG TAB PO PRN (01:30)
[2016-09-10] MEDS ORDERED: ZOLPIDEM 5 MG TAB PO PRN (01:30)
[2016-09-10] MEDS: SOD CHLORIDE 0.45% 1,000 ML IV SCH (14:15)
--- NOTE | 2016-09-10 14:16 | CONS ---
DATE OF ADMISSION: 09/09/2016 DATE OF CONSULTATION: 09/10/2016 REQUESTING PHYSICIAN: Primo Davis MD REASON FOR CONSULTATION: Coagulopathy. Dear Dr. Davis: Thank you very much for asking me to see this very pleasant patient in hemat ologic consultation. As you are aware I did see Ms. Grossman during her most recent hospitalization of 08/22/2016 through 08/29/2016. At that time, the patient was admitted to [facility] with complaints of increasing shortness of breath as well as the patient having had evidence of a n acute deep vein thrombosis in the right femoral vein and right popliteal vein. During that hospit alization, the patient did undergo a CT angiogram of the chest was demonstrated large bilateral pulm onary emboli to both lobes. As noted, the patient did have some mild shortness of breath but she di d not have any chest pain or cough. There was no hemoptysis. The patient was anticoagulated at [facility] t time and discharged from the hospital on rivaroxaban. It should be noted that the patient was experiencing a menstrual period at the time of her admission to the hospital and that she has continued to have menstrual bleeding since that time. The patient is now readmitted to [facility] with complaints of increasing fatigue, dyspnea on exertion and some orthostatic symptoms. She denies chest pain or cough. As noted, the patient has been taking rivaroxaban for anticoagulation. Other than the menstrual ble eding; however, the patient has not experienced any other unusual bruising or bleeding. The patient upon discharge from the hospital 08/29/2016 did have a white count of 6700, hemoglobin 9 .9, hematocrit 30.2 with MCV of 76.2, and a platelet count of 378,000. During the hospitalization t he patient was also found to be iron deficient. She had a serum iron of 25, iron binding capacity o f 300%, saturation of 8%. The patient did receive oral iron during the hospitalization and also was taking oral iron supplementation at home. The patient did have an evaluation during the past hospitalization for hypercoagulable state. The w orkup was negative except for the presence of a lupus anticoagulant. The patient is now admitted to the hospital on 09/09/2016, white count 12,300, hemoglobin is 4.9, he matocrit 15.2 and platelet count 388,000. The sodium 138, potassium 4.6, BUN 16, creatinine 1.06, b ilirubin 0.3 with a direct bilirubin of 0, AST 15, ALT 30, alkaline phosphatase 79, total protein 6. 5, albumin 3.5. Since admission, the patient has now received 4 units of packed red blood cells. Repeat hemoglobin has not been obtained but the patient states she is feeling much better. PAST MEDICAL HISTORY: Significant in that she has had no previous thromboembolic events prior to e recent deep vein thrombosis and pulmonary emboli. Her only other medical problem includes hyperte nsion. She has no history of diabetes, heart disease, renal, hepatic or previous pulmonary disease. PAST SURGICAL HISTORY: Only surgery has included a section done 26 years ago. SOCIAL HISTORY: The patient as noted is still having menstrual periods. She is 1, para 1, AB 0. Menstrual periods have become irregular; however. She does not take oral contraception or any other type of hormonal medications. PHYSICAL EXAMINATION: GENERAL: At this time reveals a well-developed, well-nourished but obese female who is in no acute distress. VITAL SIGNS: Temperature 97.7, pulse 70 per minute and regular, respirations 20, blood pressure 110 /50, pulse oximetry is 100% on room air. SKIN: No ecchymosis, no petechiae or rashes. HEENT: No mucosal lesions. No scleral icterus. NECK: Supple, no jugular venous distention or thyroid enlargement. CHEST: Clear to auscultation and percussion. No rhonchi, wheezes, rales or rubs. NODES: No palpable lymphadenopathy in the lymph node bearing area. HEART: Regular sinus rhythm, no S3, S4 or murmurs. ABDOMEN: Obese without masses or ascites. EXTREMITIES: Good range of motion, no clubbing, edema or cyanosis. No palpable cords or Homans sig n. NEUROLOGIC: Normal. DISCUSSION: This patient does present an interesting problem in that she has had a recent deep vein thrombosis and multiple pulmonary emboli and will require anticoagulation. This is further complic ated by the fact that patient does have a positive lupus anticoagulant, which likely is the cause fo r her apparent hypercoagulable state. As noted, the patient is still having menstrual periods, although, they have become irregular. The patient's present anemia is due to the recent menorrhagia which started now almost 3 weeks ago a nd certainly was worsened by the anticoagulation. As it is likely that the patient will experience menorrhagia again while on anticoagulation some typ e of intervention will be necessary. This may include a hysterectomy. If the patient cannot receive further anticoagulation it may be necessary to consider placement of t emporary vena caval filter. This may be necessary also if the patient is to have a hysterectomy and will not be able to be anticoagulative in the perioperative period. I will at this time obtain an MIMA and also anticardiolipin antibodies. Once again, thank you very much for the opportunity of participating in the medical care of this temo y interesting and pleasant patient. I will be happy to follow this patient with you and assist in h er hematologic evaluation and follow up as necessary. Dictated By: CARLOS HAINES MD, SR/MARIELA Conf#: [id number] DID#: [id number]
[2016-09-10 14:22] LABS: BASOPHILS % 0.5 % (0.0-2.0); EOSINOPHILS # 0.1 10^3/ul (0.0-0.5); EOSINOPHILS % 1.2 % (0.0-7.0); HEMATOCRIT 23.3 % (37.0-47.0); HEMOGLOBIN 7.6 g/dl (12.0-16.0); LYMPHOCYTES # 2.6 10^3/ul (0.8-2.9); LYMPHOCYTES % 29.3 % (15.0-51.0); MEAN CORPUSCULAR HEMOGLOBIN 27.4 pg (29.0-33.0); MEAN CORPUSCULAR HGB CONC 32.8 g/dl (32.0-37.0); MEAN CORPUSCULAR VOLUME 83.7 fl (82.0-101.0); MEAN PLATELET VOLUME 7.5 fl (7.4-10.4); MONOCYTE # 0.5 10^3/ul (0.3-0.9); MONOCYTES % 5.9 % (0.0-11.0); NEUTROPHIL # 5.7 10^3/ul (1.6-7.5); NEUTROPHILS % 63.1 % (39.0-77.0); PLATELET COUNT 241 10^3/UL (140-440); RED BLOOD COUNT 2.78 10^6/ul (4.20-5.40)
[2016-09-10 14:32] LABS: CONDITION 1; LH ANALYZER COMMENTS 1; POTASSIUM 3.8 mmol/L (3.5-5.1)
[2016-09-10 14:34] LABS: CREATININE 1.07 mg/dl (0.44-1.00)
[2016-09-10 14:35] LABS: CALCIUM 7.9 mg/dl (8.4-10.2)
--- NOTE | 2016-09-10 15:02 | HP ---
DATE OF ADMISSION: 09/09/2016 CHIEF COMPLAINT AND HISTORY OF PRESENT ILLNESS: The patient is a 51-year-old lady who is well known to me from previous followup with history of hypertension, status post recent right lower extremity deep venous thrombosis including femoral and popliteal vein with bilateral pulmonary emboli, admitt ed August 22, discharged on 29 of August on Xarelto, presenting with exertional dyspnea, dizzin ess, increasing weakness, and the patient was evaluated in the emergency room and was admitted. The patient states that her last menstrual period was 08/22/2016, but the patient continued to have ble eding while on Xarelto which accelerated over the last several days. The patient denies any chest p ain or palpitations at this time. REVIEW OF SYSTEMS: HEAD: No history of headaches, focal weakness, or numbness. EYES: No blurry vision or glaucoma. ENT: Noncontributory. NECK: No history of thyroid disease. CHEST: No bronchitis, hay fever. The patient does not smoke. The patient had bilateral pulmonary emboli diagnosed 2 weeks ago, on Xarelto. CARDIOVASCULAR: No PND, orthopnea, palpitations. No history of NE or angina. GASTROINTESTINAL: No constipation, diarrhea, change in bowel habits. GENITOURINARY: No dysuria, hematuria, kidney stones. Periods have been irregular, sometimes lastin g for 5 to 10 days. Sometimes amenorrheic for 2 to 3 months ever since she gave 20 years ago. She has not had a MANAGER MINING exam recently. MUSCULOSKELETAL: History of meniscus tear, right knee, about a month ago, followed by DVT right fem oral and popliteal vein. PAST SURGICAL HISTORY: Includes . PAST MEDICAL HISTORY: The patient has had a prior workup for hypercoagulable states which turned ou t to have lupus anticoagulants. PHYSICAL EXAMINATION: GENERAL: The patient is an average built female who appears to be in no acute distress at the prese nt time. VITAL SIGNS: Temperature 97.7, blood pressure 110/54, O2 saturation 100% on room air. HEENT: Head normocephalic. Moderate pallor without cyanosis or icterus. Tongue is coated, dry. NECK: Supple. No thyromegaly, bruits, or lymphadenopathy. LUNGS: Clinically clear. HEART: S1, S2 with no definite gallops. ABDOMEN: Obese, nontender. No hepatosplenomegaly. EXTREMITIES: No edema. Pedals 1+ bilaterally. Homans sign is negative. NEUROLOGIC: No localizing or lateralizing signs. LABORATORY DATA: Initial WBC count 12.3, hematocrit 15.2 with platelet count of 388,000. Sodium 13 8, potassium 4.6, BUN 16, creatinine 1.06. PT, INR is 1.44, PTT 27.3. IMPRESSION: 1. Severe anemia secondary to blood loss with menorrhagia complicated by recent anticoagulants, Susanner serinato. 2. Status post right femoral popliteal vein thrombosis with bilateral pulmonary emboli, positive rachna pus anticoagulant. 3. Hypertension, well compensated. PLAN: The patient will be admitted to telemetry. Replace blood losses. Hold Bystolic. Hematology consultation at the request of Dr. Lemus and follow his recommendations. We will also request Dr Megan Neal to consider further treatment including consideration for possible D and C versus hysterect jenny as patient would need to be on anticoagulants for the rest of her life. Dictated By: NIKA WEI MD, SR/MARIELA Conf#: [id number] DID#: [id number]
[2016-09-11] VITALS (20 sets, daily range): BP systolic 106–150; BP diastolic 55–77; PULSE 69–77; RESP 15–19
--- NOTE | 2016-09-11 06:31 | CONS ---
DATE OF ADMISSION: 09/09/2016 DATE OF CONSULTATION: 09/10/2016 TYPE OF CONSULTATION: Gynecologic. HISTORY OF PRESENT ILLNESS: The patient is a 51-year-old 1, para 1 admitted to the hospital for severe anemia with hemoglobin of 4.9 due to bleeding since her last period 08/22. On 08/22, she was admitted to the hospital with a DVT and bilateral pulmonary emboli and then initiated on Xarelto. Her period never ended, and she has been bleeding ever since. Initially she said not that heavily, and the blood clots were not that heavy. However, upon further discussion, she actually had to get up and completely change her clothes during the night even though the blood clots were stated to be medium size. This has been ongoing since 08/22. She came into the emergency room acutely symptomatic and was admitted for a blood transfusion. The patient has received 4 units of blood as it stands right now. The last hemoglobin in the file was 7.6. I'm not sure how many units that's after, if that's after 3 or 4. The patient states she is feeling much better, and the patient states she is being scheduled for an additional 4 more units. Blood pressures on admission 144/95 and 134/63, temperature 98.4, pulse oximetry 100% on room air, respiratory rate anywhere from 16 to 20. The patient initially had some knee pain in July, saw her doctor and she thought it was arthritis , then started on some medication. She then twisted her knee and was given a brace. A Doppler study was done at that time which was negative, and she came back in on 08/22 with DVT and the bilateral pulmonary emboli and was initiated on Xarelto. A workup for hypercoagulability was all negative except for lupus anticoagulant. The patient reports her periods had been regular. However, for the last 3 years, she has been skipping 1 to 2 months at a time, and her periods are described as heavy but normal for her. Last time she used control pills or any other hormones was age 39. In the last 6 months, she had a period in January for 7 days, then she had one in May for 3 days, July for 7 days, and then in August from 08/22 until now. She has not experienced any hot flashes or any other signs of perimenopausal changes. PAST MEDICAL HISTORY: Also significant for hypertension for which she takes Bystolic normally. PAST SURGICAL HISTORY: Previous section x1 twenty-six years ago. ALLERGIES: NO KNOWN DRUG ALLERGIES. I was asked to consult on this patient regarding the bleeding and see what she would be a candidate for as at this point per Dr. Davis, who called the consultation, and Dr. Lemus, she should be on anticoagulants the rest of her life. Had a long discussion with the patient regarding her options. Initial discussion was about a D and C to 1, stop the bleeding immediately; 2, get tissue just to make sure that everything is fine. Next option would be possibility of hormonal manipulation of her cycles including Depo-Provera injections. The patient's sister does that and is very successful on it. The patient would be interested in that. I told her that we need to discuss it with Dr. Lemus to make sure he doesn't have any adverse thoughts in that regard. Third possibility, although she is not a candidate for it, is hydrothermal ablation as she has had a section before which is a contraindication for that procedure. Fourth possibility if the bleeding continues to be an issue would be a hysterectomy. The patient indicated understanding, although she would prefer to avoid that, and understands the logic of proceeding from the D and C first on through doing something more definitive. MEDICATIONS: 1. Xarelto, though it has been stopped since she was admitted. 2. Iron. 3. Bystolic. 4. Tylenol. 5. Pantoprazole for acid reflux. ASSESSMENT: 1. Lupus anticoagulant positive. 2. History of deep venous thrombosis and pulmonary emboli, necessitating anticoagulant therapy. 3. Menorrhagia. PLAN: Dilatation and curettage. Dictated By: ANGLE CLEMONS/MARIELA Conf#: [id number] DID#: [id number] PRIMO
[2016-09-11 07:52] LABS: WHITE BLOOD COUNT 12.3 10^3/ul (4.8-10.8)
[2016-09-11] MEDS: SOD CHLORIDE 0.45% 1,000 ML IV SCH (09:30)
--- NOTE | 2016-09-11 12:12 | PN ---
DATE: 09/11/2016 SUBJECTIVE: The patient overall feels better. No shortness of breath, chest pain or palpitations. Energy level is good. Appetite good, ambulating well. PHYSICAL EXAMINATION: GENERAL: Patient is in no acute distress. VITAL SIGNS: Temperature 97.8, blood pressure 111/56 off antihypertensives, O2 sat 95% on room air. CHEST: Clinically clear. HEART: S1, S2 heard. No definite gallops. ABDOMEN: Soft, nontender. No hepatosplenomegaly. EXTREMITIES: No edema. Homans sign is negative. LABORATORY DATA: Pending. Patient has received 3 more units since yesterday afternoon with no guzman sfusion related complications. There is no rash. Dr. Neal is STAFF AUDITOR consultation, greatly appreciated. ASSESSMENT AND PLAN: 1. Severe anemia secondary to menorrhagia. 2. Deep vein thrombosis, right lower extremity complicated by bilateral pulmonary emboli diagnosed 3 weeks prior, on Xarelto, which has been stopped. 3. Hypertension, well compensated. 4. Mild obesity. I agree with Dr. Neal's recommendations regarding proceeding with a D and C and then look at other options if it is not successful. Hold anticoagulants right now. Closely monitor hemoglobin and he matocrit and for further bleeding replace losses accordingly. Will discuss with Dr. Mariah galvin further anticoagulation, the timing of it and closely follow condition. Dictated By: NIKA WEI MD SR/NTS Conf#: [id number] DID#: [id number]
--- NOTE | 2016-09-11 13:36 | PN ---
Date/Time of Note Date/Time of Note DATE: 09/11/16 TIME: 13:29 Assessment/Plan VTE Prophylaxis VTE Prophylaxis Intervention: contraindicated (due to bleeding) Lines/Catheters IV Catheter Type (from Nrs): Peripheral IV Assessment/Plan Assessment/Plan Pt is being planned for D&C or hormonal suppression to control the uterine bleeding. Hysterectomy may also need to be considered. She has a positive lupus anticoagulant and had DVT/PE, so anticoagulation will be needed for the foreseeable future. IVC filter should be planned if hysterectomy is needed. Will recheck labs in AM. Subjective 24 Hr Interval Summary Free Text/Dictation Pt is alert and aware. She has had further vaginal bleeding but not from other sites. Exam/Review of Systems Vital Signs Vitals Vital Signs Date Time Temp Pulse Resp B/P Pulse Ox O2 Delivery O2 Flow Rate FiO2 09/11/16 12:35 98.2 73 18 119/70 98 Room Air Intake and Output 09/10/16 09/10/16 09/11/16 15:00 23:00 07:00 Intake Total 1250 ml Balance 1250 ml Exam Constitutional: alert, obese, oriented Psych: no complaints Head: normocephalic Eyes: nl conjunctiva Neck: supple Respiratory: clear to auscultation Cardiovascular: regular rate and rhythm Gastrointestinal: soft Results Result Diagram: 09/10/16 1356 09/10/16 1356 Results 24 hrs Laboratory Tests Test 09/10/16 13:56 Anion Gap 15 Basophils # 0.0 Basophils % 0.5 Blood Morphology Comment Blood Urea Nitrogen 13 Calcium Level 7.9 L Carbon Dioxide Level 26 Chloride Level 104 Creatinine 1.07 H Eosinophils # 0.1 Eosinophils % 1.2 Glucose Level 109 Hematocrit 23.3 #L Hemoglobin 7.6 #L Lymphocytes # 2.6 Lymphocytes % 29.3 Mean Corpuscular Hemoglobin 27.4 L Mean Corpuscular Hemoglobin Concent 32.8 Mean Corpuscular Volume 83.7 Mean Platelet Volume 7.5 Monocytes # 0.5 Monocytes % 5.9 Neutrophils # 5.7 Neutrophils % 63.1 Nucleated Red Blood Cells # 0.0 Nucleated Red Blood Cells % 0.0 Platelet Count 241 # Potassium Level 3.8 Red Blood Count 2.78 #L Red Cell Distribution Width 22.0 H Sodium Level 141 White Blood Count 9.0 # Medications Medications Current Medications Acetaminophen (Tylenol Tab) 500 mg Q4H PRN PO PAIN AND OR ELEVATED TEMP; Start 09/10/16 at 01:30 Zolpidem Tartrate 5 mg 5 mg HS PRN PO INSOMNIA; Start 09/10/16 at 01:30 Sodium Chloride (1/2 NS) 1,000 ml @ 50 mls/hr Q20H IV Last administered on t 14:15; Admin Dose 50 MLS/HR; Start 09/10/16 at 13:30 MARIA DEL ROSARIO ZAVALETA MD Sep 11, 2016 13:36
[2016-09-11 14:52] LABS: BASOPHILS % 0.4 % (0.0-2.0); EOSINOPHILS # 0.2 10^3/ul (0.0-0.5); EOSINOPHILS % 2.8 % (0.0-7.0); HEMATOCRIT 32.2 % (37.0-47.0); HEMOGLOBIN 10.6 g/dl (12.0-16.0); LYMPHOCYTES # 2.9 10^3/ul (0.8-2.9); LYMPHOCYTES % 33.8 % (15.0-51.0); MEAN CORPUSCULAR HEMOGLOBIN 27.7 pg (29.0-33.0); MEAN CORPUSCULAR HGB CONC 32.8 g/dl (32.0-37.0); MEAN CORPUSCULAR VOLUME 84.4 fl (82.0-101.0); MEAN PLATELET VOLUME 7.4 fl (7.4-10.4); MONOCYTE # 0.6 10^3/ul (0.3-0.9); MONOCYTES % 6.6 % (0.0-11.0); NEUTROPHIL # 4.8 10^3/ul (1.6-7.5); NEUTROPHILS % 56.4 % (39.0-77.0); PLATELET COUNT 212 10^3/UL (140-440); RED BLOOD COUNT 3.82 10^6/ul (4.20-5.40); RED CELL DISTRIBUTION WIDTH 19.1 % (11.5-14.5); UNCORRECTED WBC 8.5 10^3/ul (4.8-10.8); WHITE BLOOD COUNT 8.5 10^3/ul (4.8-10.8)
[2016-09-11 15:08] LABS: ALBUMIN 3.3 g/dl (3.3-4.9)
[2016-09-11 15:09] LABS: POTASSIUM 4.3 mmol/L (3.5-5.1)
[2016-09-11 15:11] LABS: ALBUMIN/GLOBULIN RATIO 1.13; BILIRUBIN,INDIRECT 0.8 mg/dl (0-1.1); BILIRUBIN,TOTAL 0.8 mg/dl (0.2-1.3); CREATININE 0.9 mg/dl (0.44-1.00); TOTAL PROTEIN 6.2 g/dl (6.1-8.1)
[2016-09-11 15:12] LABS: CALCIUM 8.3 mg/dl (8.4-10.2)
[2016-09-11] MEDS ORDERED: MIDAZOLAM 1 MG/ML 2 ML INJ ONE (15:13)
[2016-09-11 15:16] LABS: CONDITION 1; LH ANALYZER COMMENTS 1
[2016-09-11] MEDS ORDERED: FENTAnyl 50 MCG/ML VIAL IV PRN (15:30)
[2016-09-11] MEDS ORDERED: DIPHENHYDRAMINE 50 MG INJ IV PRN (15:30)
[2016-09-11] MEDS ORDERED: ONDANSETRON 4 MG INJ IV PRN ×2 (15:30→20:30)
[2016-09-11] MEDS ORDERED: HYDROmorphONE (0.2 MG/ML) 10ML SYG IV PRN (15:30)
[2016-09-11] MEDS ORDERED: MEPERIDINE 25 MG INJ IV PRN (15:30)
[2016-09-11] MEDS ORDERED: PROPOFOL 20 ML ONE (16:05)
[2016-09-11] MEDS ORDERED: CEFAZOLIN 1 GM INJ ONE (16:05)
[2016-09-11] MEDS ORDERED: LIDOCAINE 2% (SDV) 5 ML INJ ONE (16:05)
[2016-09-11] MEDS ORDERED: ONDANSETRON 4 MG INJ ONE (16:06)
[2016-09-11] MEDS: HYDROmorphONE (0.2 MG/ML) 10ML SYG IV PRN ×2 (17:26→17:36)
[2016-09-11 18:58] LABS: AADO2 Arterial 69.4 mmHg (7.0-24.0); Allen Test ACCEPTAB; Arterial Base Excess -1.1 mmol/L (-3.0-3); Arterial COHb 0.3 % (0.0-3.0); Arterial Fraction of Oxyhgb 93.7 % (93.0-99.0); Arterial HCO3 24.5 mmol/L (22.0-26.0); Arterial MetHb 0.4 % (0.0-1.5); Arterial Total Hemglobin 10.8 g/dl (12.0-18.0); MODE NASAL CANNULA
--- NOTE | 2016-09-11 19:53 | RADRPT ---
PROCEDURE: XR Chest AP portable CLINICAL INDICATION: Chest pressure TECHNIQUE: An AP portable radiograph of the chest was submitted. COMPARISON: 08/22/2016 FINDINGS: Support Hardware: None Cardiovascular: The cardiovascular silhouette appears unremarkable. Lung Estrella: Discoid atelectasis has developed within the right lower lung zone. Pleural Spaces: No pneumothorax or pleural effusion is identified. Osseous Structures: Mild degenerative spine changes are again noted. Soft Tissues: The soft tissues appear generous. IMPRESSION: 1. Development of discoid atelectasis in the right mid to lower lung zone. 2. Degenerative spine changes. Physician Maru Date Time Electronically viewed and signed by Physician Maru on 09/11/2016 19:53 RH/
[2016-09-11] MEDS: FERROUS SULFATE (EC) 325 MG TAB PO SCH (20:19)
[2016-09-12] VITALS (11 sets, daily range): BP systolic 99–136; BP diastolic 49–66; PULSE 67–83; RESP 18–20
--- NOTE | 2016-09-12 04:29 | RADRPT ---
PROCEDURE: US bilateral lower extremity venous Doppler CLINICAL INDICATION: Bilateral swelling TECHNIQUE: Multiple sonographic images of the bilateral lower extremity deep venous system was obt ained utilizing grayscale, color-flow, compressive sonography and Doppler imaging with augmentation. COMPARISON: 08/22/2016 FINDINGS: Thrombus is again seen throughout the right superficial femoral vein and popliteal vein. This is si milar appearance to the prior exam. There is normal flow, compressibility and augmentation within the left common, superficial femoral, popliteal and calf veins. IMPRESSION: Positive for DVT in the right superficial femoral and popliteal veins. This is similar appearance t o the prior. RPTAT: HIKT .Hemanth Cohn MD, MD Date Time Electronically viewed and signed by .Hemanth Cohn MD, on 09/12/2016 04:29 .T/
[2016-09-12] MEDS: SOD CHLORIDE 0.45% 1,000 ML IV SCH (05:48)
[2016-09-12 08:08] LABS: BASOPHILS % 0.5 % (0.0-2.0); EOSINOPHILS # 0.1 10^3/ul (0.0-0.5); EOSINOPHILS % 1.8 % (0.0-7.0); HEMATOCRIT 27.5 % (37.0-47.0); HEMOGLOBIN 9.1 g/dl (12.0-16.0); LYMPHOCYTES % 26.4 % (15.0-51.0); MEAN CORPUSCULAR HEMOGLOBIN 28.3 pg (29.0-33.0); MEAN CORPUSCULAR HGB CONC 33.2 g/dl (32.0-37.0); MEAN CORPUSCULAR VOLUME 85.1 fl (82.0-101.0); MEAN PLATELET VOLUME 7.4 fl (7.4-10.4); MONOCYTE # 0.5 10^3/ul (0.3-0.9); MONOCYTES % 6.2 % (0.0-11.0); NEUTROPHILS % 65.1 % (39.0-77.0); PLATELET COUNT 181 10^3/UL (140-440); RED BLOOD COUNT 3.23 10^6/ul (4.20-5.40); RED CELL DISTRIBUTION WIDTH 18.7 % (11.5-14.5); UNCORRECTED WBC 7.7 10^3/ul (4.8-10.8); WHITE BLOOD COUNT 7.7 10^3/ul (4.8-10.8)
[2016-09-12 08:14] LABS: CONDITION 1
[2016-09-12 08:15] LABS: LH ANALYZER COMMENTS 1
[2016-09-12 08:17] LABS: INR 1.01; PROTIME 13.3 Sec (12.2-14.2)
[2016-09-12 08:18] LABS: PARTIAL THROMBOPLASTIN TIME 22.5 Sec (25.0-35.0)
[2016-09-12] MEDS: FERROUS SULFATE (EC) 325 MG TAB PO SCH ×3 (08:19→21:29)
[2016-09-12 08:23] LABS: ALBUMIN 2.9 g/dl (3.3-4.9); CHLORIDE 104 mmol/L (97-110); SODIUM 140 mmol/L (135-144)
[2016-09-12 08:24] LABS: POTASSIUM 4.4 mmol/L (3.5-5.1)
[2016-09-12 08:25] LABS: CREATININE 0.88 mg/dl (0.44-1.00)
[2016-09-12 08:26] LABS: ALANINE AMINOTRANSFERASE 45 IU/L (13-69); ALBUMIN/GLOBULIN RATIO 1.11; ALKALINE PHOSPHATASE 81 IU/L (42-121); ANION GAP 13 (8-16); ASPARTATE AMINO TRANSFERASE 27 IU/L (15-46); BILIRUBIN,INDIRECT 0.7 mg/dl (0-1.1); BILIRUBIN,TOTAL 0.7 mg/dl (0.2-1.3); BLOOD UREA NITROGEN 10 mg/dl (7-20); CARBON DIOXIDE 27 mmol/L (21-31); GLUCOSE 73 mg/dl (70-220); TOTAL PROTEIN 5.5 g/dl (6.1-8.1)
[2016-09-12 08:27] LABS: CALCIUM 7.9 mg/dl (8.4-10.2)
[2016-09-12 08:34] LABS: TROPONIN-I < 0.012 ng/ml (0.00-0.12)
--- NOTE | 2016-09-12 10:21 | PN ---
DATE: 09/12/2016 SUBJECTIVE: The patient overall feels well. Presently not complaining of any chest pain or shortness of breath. Status post D and C last evening. The patient when she returned back to the room had chest pressure, lasting for about 5 minutes, and resolved after that. The patient denied any palpitations, radiation, nausea, vomiting, dizziness or diaphoresis along with the chest pressure. PHYSICAL EXAMINATION: GENERAL: The patient is presently in no acute distress. VITAL SIGNS: Temperature 98.2, heart rate 76 per minute, blood pressure 120/58 , O2 saturation 96% on room. When the patient had the chest pain yesterday, she did not become hypotensive. LUNGS: Decreased breath sounds at the bases. HEART: S1, S2. No definite gallops. Normal sinus rhythm. EXTREMITIES: No edema. Homans sign is negative. LABORATORY: Blood gas done yesterday when the patient had the chest pain, showed a pH of 7.36, pCO2 of 24.3, pO2 of 78, on 2 liters nasal cannula. Troponin was 0.01 yesterday and less than 0.01 today. EKG was ordered, still pending. PT/INR 1.01, PTT 22.5. Chest x-ray, portable done, showed right mid- to-lower lung zone discoid atelectasis. Extremity venous study was done bilaterally to rule out any new thrombus formation, which showed DVT in the right superficial femoral and popliteal veins, which had a similar appearance to the prior exam 3 weeks prior. Hematocrit 27.5. WBC count 7.7. IMPRESSION: 1. Chest pain lasting for 5 minutes postop D and C, likely secondary to pulmonary emboli. Not clear if she has any new emboli. Doubt coronary ischemia. Doppler study of the lower extremity did not reveal any new thrombus formation. 2. Hypercoagulable state, with lupus anticoagulant. 3. Severe anemia secondary to menorrhagia. Status post D and C. 4. Hypertension. Well compensated. 5. Discoid atelectasis, right [id number] lung zone. PLAN: Will discuss with Dr. Andrade and consider getting a CT angiogram and consideration of a possible retrieval filter placement. Also with Dr. Lemus regarding the timing of restarting anticoagulation, given the patient's high risk status. The patient has been bleeding vaginally all along and since the D and C yesterday, she has not had any further bleeding. Will discuss regarding further ELEMENTARY SCIENCE TEACHER followup with Dr. Neal. Will also start the patient on incentive spirometry and gradually increase ambulation. Recheck a CBC in the a.m. Dictated By: NIKA WEI MD SR/NTS Conf#: [id number] DID#: [id number] MTDD
[2016-09-12] MEDS: APIXABAN 5 MG TABLET PO SCH ×2 (11:12→21:29)
--- NOTE | 2016-09-12 13:56 | CONS ---
DATE OF ADMISSION: 09/09/2016 DATE OF CONSULTATION: 09/12/2016 TYPE OF CONSULTATION: Hematology progress note. HISTORY OF PRESENT ILLNESS: The patient states she is feeling well now. Did undergo a dilatation an d curettage yesterday. She has experienced no further vaginal bleeding. The patient did have an episode of some chest pressure postoperatively, but this had resolved within a few minutes. The patient has not had any cough or shortness of breath. She has had no pleuritic chest pain. OBJECTIVE: VITAL SIGNS: Temperature 98.2, pulse 67 per minute and regular, respirations 20, blood pressure is 120/58 and pulse oximetry 96% on room air. SKIN: No ecchymosis, no petechiae or rashes. HEENT: No mucosal lesions. No scleral icterus. NECK: Supple, no jugular venous distention or thyroid enlargement. CHEST: Clear to auscultation and percussion. No rhonchi, wheezes, rales or rubs. HEART: Regular sinus rhythm, no S3, S4 or murmurs. ABDOMEN: Obese but soft. No masses or ascites. EXTREMITIES: No clubbing, edema or cyanosis. No palpable cords or Homans sign. NEUROLOGIC: Normal. A lower extremity venous Doppler study was performed on 09/11/2016. This shows evidence of the prev iously noted deep vein thrombosis in the right superficial femoral and popliteal veins. This is sim ilar in appearance of the study done on 08/22/2016. LABORATORY DATA: White count today 7700, hemoglobin 9.1, hematocrit 27.5, and platelet count is 181 ,000. ASSESSMENT: 1. Anemia secondary to menorrhagia. 2. History of deep vein thrombosis and pulmonary embolism with a positive lupus anticoagulant. PLAN: The patient will be started back on anticoagulation. I have elected to use apixaban at a dos e of 5 mg twice a day rather than rivaroxaban. If the patient should have significant vaginal bleeding again it may be necessary for the patient to undergo a hysterectomy. Dictated By: CARLOS HAINES MD, SR/MARIELA Conf#: [id number] DID#: [id number]
[2016-09-12 14:13] LABS: ANA SCREEN NEGATIVE (NEGATIVE)
--- NOTE | 2016-09-12 18:53 | CONS ---
DATE OF ADMISSION: 09/09/2016 DATE OF CONSULTATION: 09/12/2016 TYPE OF CONSULTATION: Pulmonary consultation. REASON FOR CONSULTATION: Pulmonary embolisms management. Thank you, Dr. Davis for this consultation. HISTORY OF PRESENT ILLNESS: This is a pleasant 51-year-old lady well known to myself seen by myself on a recent admission when she was diagnosed with acute DVT and pulmonary embolus. She now represe nted with significant anemia, hemoglobin of , hematocrit of 15.2 with evidence of vaginal bleed ing. She underwent transfusion of packed red blood cells and D and C performed by Dr. Nolasco. Of not e, patient had been on Xarelto anticoagulation for recent pulmonary emboli. PAST MEDICAL HISTORY: Pulmonary embolism, history of lupus anticoagulant. MEDICATIONS: Per chart. ALLERGIES: NONE. SOCIAL HISTORY: Nonsmoker, no alcohol, no history of drug use. FAMILY HISTORY: Noncontributory. SYSTEMS REVIEW: A 12-point review of systems was negative other than that mentioned above. PHYSICAL EXAMINATION: GENERAL: Well-nourished, well-developed lady, comfortable at rest, no acute distress. VITAL SIGNS: Currently afebrile, pulse is 80, blood pressure 127/60, O2 saturation 97% on room air. NECK: Supple. No JVD or lymphadenopathy. CARDIAC: S1, S2, no added sounds or murmurs. CHEST: Diminished air entry bilaterally. ABDOMEN: Soft, nontender. No guarding or rebound. EXTREMITIES: No cyanosis, clubbing, edema. NEUROLOGIC: Grossly intact. No focal deficits. LABORATORIES: White count 7.7, hemoglobin 9.1 following a transfusion. Chemistry within normal barkley its. Arterial blood gas PaO2 was 78 on room air. INR is 1.01. MIMA was negative. Lower extremity D opplers positive for deep vein thrombosis, right superficial femoral and popliteal veins. Similar t o prior appearance. IMPRESSION AND PLAN: 1. Significant anemia, likely secondary to menorrhagia with anticoagulation. 2. Recent acute pulmonary embolus and deep vein thrombosis. The patient will require: Continued resumption of anticoagulation following D and C. However, she continues to have significant anemia and/or heavy bleeding. Patient should have a retrievable IVC f ilter placed to prevent further propagation of deep vein thrombosis into her pulmonary vasculature. Dictated By: BLANCA CORONA/MARIELA Conf#: [id number] [facility]#: [id number]
[2016-09-13] VITALS (11 sets, daily range): BP systolic 122–151; BP diastolic 63–73; PULSE 71–78; RESP 17–20
[2016-09-13] MEDS: SOD CHLORIDE 0.45% 1,000 ML IV SCH ×2 (01:30→21:30)
[2016-09-13 07:36] LABS: BASOPHILS % 0.4 % (0.0-2.0); EOSINOPHILS # 0.3 10^3/ul (0.0-0.5); EOSINOPHILS % 4.5 % (0.0-7.0); HEMATOCRIT 30.8 % (37.0-47.0); HEMOGLOBIN 10.3 g/dl (12.0-16.0); LYMPHOCYTES # 2.4 10^3/ul (0.8-2.9); LYMPHOCYTES % 34.1 % (15.0-51.0); MEAN CORPUSCULAR HGB CONC 33.5 g/dl (32.0-37.0); MEAN CORPUSCULAR VOLUME 83.6 fl (82.0-101.0); MEAN PLATELET VOLUME 7.5 fl (7.4-10.4); MONOCYTE # 0.6 10^3/ul (0.3-0.9); MONOCYTES % 8.2 % (0.0-11.0); NEUTROPHIL # 3.7 10^3/ul (1.6-7.5); NEUTROPHILS % 52.8 % (39.0-77.0); PLATELET COUNT 204 10^3/UL (140-440); RED BLOOD COUNT 3.69 10^6/ul (4.20-5.40); UNCORRECTED WBC 7.1 10^3/ul (4.8-10.8); WHITE BLOOD COUNT 7.1 10^3/ul (4.8-10.8)
[2016-09-13 07:43] LABS: CONDITION 1; LH ANALYZER COMMENTS 1
[2016-09-13 07:45] LABS: POTASSIUM 4.7 mmol/L (3.5-5.1)
[2016-09-13 07:47] LABS: CREATININE 0.92 mg/dl (0.44-1.00)
[2016-09-13 07:48] LABS: CALCIUM 8.3 mg/dl (8.4-10.2)
[2016-09-13] MEDS: APIXABAN 5 MG TABLET PO SCH ×2 (08:55→20:41)
[2016-09-13] MEDS: FERROUS SULFATE (EC) 325 MG TAB PO SCH ×3 (08:55→20:41)
--- NOTE | 2016-09-13 18:35 | PN ---
Date/Time of Note Date/Time of Note DATE: 09/13/16 TIME: 18:33 Assessment/Plan VTE Prophylaxis VTE Prophylaxis Intervention: other (Eliquis) Lines/Catheters IV Catheter Type (from [facility]): Peripheral IV Urinary Cath still in place: No Assessment/Plan Chief Complaint/Hosp Course 51 year old female with: > h/o thromboembolism. > h/o APLAS > Recent menorrhagia on anticoagulation. Now post D and C and doing much better. There is no bleeding and tolerating Eliquis well. Plan: Continue Eliquis Can d/c home if h/h stable and no bleeding. Problems: Subjective 24 Hr Interval Summary Free Text/Dictation She is doing well. Tolerating Eliquis well, and there is no bleeding. She is happy. Exam/Review of Systems Vital Signs Vitals Vital Signs Date Time Temp Pulse Resp B/P Pulse Ox O2 Delivery O2 Flow Rate FiO2 09/13/16 16:24 98.0 70 18 122/69 96 09/13/16 01:09 2.0 09/12/16 16:00 Room Air Intake and Output 09/12/16 09/12/16 09/13/16 15:00 23:00 07:00 Intake Total 1350 ml Balance 1350 ml Exam Obese female, laying comfortably in bed. Abd soft, non tender. Skin - no bruising Results Result Diagram: 09/13/16 0610 09/13/16 0610 Results 24 hrs Laboratory Tests Test 09/13/16 06:10 Anion Gap 15 Basophils # 0.0 Basophils % 0.4 Blood Morphology Comment Blood Urea Nitrogen 10 Calcium Level 8.3 L Carbon Dioxide Level 28 Chloride Level 105 Creatinine 0.92 Eosinophils # 0.3 Eosinophils % 4.5 Glucose Level 92 Hematocrit 30.8 L Hemoglobin 10.3 L Lymphocytes # 2.4 Lymphocytes % 34.1 Mean Corpuscular Hemoglobin 28.0 L Mean Corpuscular Hemoglobin Concent 33.5 Mean Corpuscular Volume 83.6 Mean Platelet Volume 7.5 Monocytes # 0.6 Monocytes % 8.2 Neutrophils # 3.7 Neutrophils % 52.8 Nucleated Red Blood Cells # 0.0 Nucleated Red Blood Cells % 0.0 Platelet Count 204 Potassium Level 4.7 Red Blood Count 3.69 L Red Cell Distribution Width 19.0 H Sodium Level 143 White Blood Count 7.1 Medications Medications Current Medications Acetaminophen (Tylenol Tab) 500 mg Q4H PRN PO PAIN AND OR ELEVATED TEMP Last administered on 09/13/16 09:57; Admin Dose 500 MG; Start 09/10/16 at 01:30 Zolpidem Tartrate 5 mg 5 mg HS PRN PO INSOMNIA; Start 09/10/16 at 01:30 Sodium Chloride (1/2 NS) 1,000 ml @ 50 mls/hr Q20H IV Last administered on 01:30; Admin Dose 50 MLS/HR; Start 09/10/16 at 13:30 Ferrous Sulfate (Ferrous Sulfate (Ec)) 325 mg TID PO Last administered on 13:23; Admin Dose 325 MG; Start 09/11/16 at 21:00 Ondansetron HCl (Zofran Inj) 4 mg Q4H PRN IV NAUSEA AND/OR VOMITING Last administered on 09/11/16 20:58; Admin Dose 4 MG; Start 09/11/16 at 20:30 Apixaban (Eliquis) 5 mg BID PO Last administered on 09/13/16 08:55; Admin Dose 5 MG; Start 09/12/16 at 11:00 JENNIFER MERAZ MD Sep 13, 2016 18:35
--- NOTE | 2016-09-13 20:50 | PN ---
DATE: 09/13/2016 SUBJECTIVE: Chart reviewed. Events noted. The patient had uterine D and C done yesterday. Accord ing to RN, there is no significant bleeding today. PHYSICAL EXAMINATION: VITAL SIGNS: Blood pressure 151/73, pulse 77, respiration 18, temperature 97.9. She is currently s aturating 96%. HEENT: Pupils are equal and react to light. NECK: Supple, no JVD noted, no cervical adenopathy, no carotid bruits heard. LUNGS: Fair breath sounds bilaterally. CARDIOVASCULAR: S1, S2 normal. ABDOMEN: Soft, nontender. EXTREMITIES: No clubbing or cyanosis noted. NEUROLOGICAL: Awake. LABORATORY DATA: WBC 7.1, hemoglobin 10.3, hematocrit 30.8, platelets 204. Sodium 143, potassium 4 .7, chloride 105, CO2 28, BUN 10, creatinine 0.92, glucose 92. IMPRESSION: 1. Severe anemia, status post transfusion due to menorrhagia. 2. Status post dilation and curettage. 3. Recent deep venous thrombosis and pulmonary embolism. RECOMMENDATIONS: 1. Hematology followup noted. 2. The patient restarted on anticoagulation and will monitor H and H closely. Dictated By: OMAYRA ROWE MD, MA/MARIELA Conf#: [id number] DID#: [id number]
[2016-09-14] VITALS (13 sets, daily range): BP systolic 124–142; BP diastolic 62–85; PULSE 69–90; RESP 17–20
[2016-09-14 08:01] LABS: POTASSIUM 4.6 mmol/L (3.5-5.1)
[2016-09-14 08:03] LABS: CREATININE 0.89 mg/dl (0.44-1.00)
[2016-09-14 08:04] LABS: CALCIUM 8.7 mg/dl (8.4-10.2)
[2016-09-14 08:17] LABS: BASOPHILS % 0.4 % (0.0-2.0); EOSINOPHILS # 0.3 10^3/ul (0.0-0.5); EOSINOPHILS % 4.9 % (0.0-7.0); HEMATOCRIT 32.8 % (37.0-47.0); LYMPHOCYTES # 1.9 10^3/ul (0.8-2.9); LYMPHOCYTES % 28.6 % (15.0-51.0); MEAN CORPUSCULAR HGB CONC 33.6 g/dl (32.0-37.0); MEAN CORPUSCULAR VOLUME 83.2 fl (82.0-101.0); MEAN PLATELET VOLUME 7.6 fl (7.4-10.4); MONOCYTE # 0.4 10^3/ul (0.3-0.9); MONOCYTES % 5.9 % (0.0-11.0); NEUTROPHIL # 4.1 10^3/ul (1.6-7.5); NEUTROPHILS % 60.2 % (39.0-77.0); PLATELET COUNT 197 10^3/UL (140-440); RED BLOOD COUNT 3.94 10^6/ul (4.20-5.40); RED CELL DISTRIBUTION WIDTH 18.4 % (11.5-14.5); UNCORRECTED WBC 6.8 10^3/ul (4.8-10.8); WHITE BLOOD COUNT 6.8 10^3/ul (4.8-10.8)
[2016-09-14 08:18] LABS: CONDITION 1; LH ANALYZER COMMENTS 1
[2016-09-14] MEDS: FERROUS SULFATE (EC) 325 MG TAB PO SCH ×3 (08:36→21:40)
[2016-09-14] MEDS: APIXABAN 5 MG TABLET PO SCH ×2 (08:36→21:40)
--- NOTE | 2016-09-14 14:02 | RADRPT ---
Vent Rate: 70 bpm RR Interval: 0 msec UT Interval: 184 msec QRS Duration: 98 msec QT Interval: 398 msec QTC Interval: 429 msec P-R-T [place]: 57 - 27 - 47 degrees Normal sinus rhythm Low voltage QRS Cannot rule out Anterior infarct , age undetermined Abnormal ECG Electronically Signed By: Bertrand Tejeda [id number]
[2016-09-14] MEDS: SOD CHLORIDE 0.45% 1,000 ML IV SCH (17:30)
--- NOTE | 2016-09-14 18:41 | PN ---
DATE: 09/14/2016 SUBJECTIVE: Chart reviewed. The patient on room air saturating 96% and does not appear in acute di stress. PHYSICAL EXAMINATION: VITAL SIGNS: Blood pressure 130/62, pulse 74, respirations 17, temperature 97.9. HEENT: Pupils are equal. NECK: Supple, no JVD noted, no cervical adenopathy noted, no carotid bruits heard. LUNGS: Fair breath sounds bilaterally. CARDIOVASCULAR: S1, S2 normal. ABDOMEN: Soft, nontender. No organomegaly or masses noted. EXTREMITIES: No clubbing, cyanosis noted. NEUROLOGICAL: Awake. LABORATORY DATA: Sodium 143, potassium 4.6, chloride 105, CO2 of 30, BUN 10, creatinine 0.89, gluco se 85. WBC 6.8, hemoglobin 11, hematocrit 32.8, platelets 197. IMPRESSION: 1. Severe anemia, status post transfusion. 2. Status post dilation and curettage. 3. Recent deep venous thrombosis and pulmonary embolism. RECOMMENDATIONS: Continue anticoagulation per hematology recommendations. Dictated By: OMAYRA ROWE MD, MA/MARIELA Conf#: [id number] DID#: [id number]
--- NOTE | 2016-09-14 18:53 | PN ---
Date/Time of Note Date/Time of Note DATE: 09/14/16 TIME: 18:50 Assessment/Plan VTE Prophylaxis VTE Prophylaxis Intervention: other (on Eliquis) Lines/Catheters IV Catheter Type (from Nrs): Saline Lock Urinary Cath still in place: No Assessment/Plan Chief Complaint/Hosp Course 51 year old female with: > h/o thromboembolism. > h/o APLAS > Recent menorrhagia on anticoagulation. Now post D and C and doing much better. There is no bleeding and tolerating Eliquis well. > Anemia from from loss. Improving on iron replacement - continue after discharge. Plan: Continue Eliquis Plan for d/c home in am. Problems: Subjective 24 Hr Interval Summary Free Text/Dictation She is doing well. No new c/o No bleeding at all, improved energy. Exam/Review of Systems Vital Signs Vitals Vital Signs Date Time Temp Pulse Resp B/P Pulse Ox O2 Delivery O2 Flow Rate FiO2 09/14/16 16:57 98.0 68 18 135/74 99 09/13/16 21:24 21 09/13/16 01:09 2.0 09/12/16 16:00 Room Air Intake and Output 09/13/16 09/13/16 09/14/16 15:00 23:00 07:00 Intake Total 600 ml 1070 ml 120 ml Balance 600 ml 1070 ml 120 ml Exam Obese female. Mild LE edema. Results Result Diagram: 09/14/16 0650 09/14/16 0650 Results 24 hrs Laboratory Tests Test 09/14/16 06:50 Anion Gap 13 Basophils # 0.0 Basophils % 0.4 Blood Morphology Comment Blood Urea Nitrogen 10 Calcium Level 8.7 Carbon Dioxide Level 30 Chloride Level 105 Creatinine 0.89 Eosinophils # 0.3 Eosinophils % 4.9 Glucose Level 85 Hematocrit 32.8 L Hemoglobin 11.0 L Lymphocytes # 1.9 Lymphocytes % 28.6 Mean Corpuscular Hemoglobin 28.0 L Mean Corpuscular Hemoglobin Concent 33.6 Mean Corpuscular Volume 83.2 Mean Platelet Volume 7.6 Monocytes # 0.4 Monocytes % 5.9 Neutrophils # 4.1 Neutrophils % 60.2 Nucleated Red Blood Cells # 0.0 Nucleated Red Blood Cells % 0.0 Platelet Count 197 Potassium Level 4.6 Red Blood Count 3.94 L Red Cell Distribution Width 18.4 H Sodium Level 143 White Blood Count 6.8 Medications Medications Current Medications Acetaminophen (Tylenol Tab) 500 mg Q4H PRN PO PAIN AND OR ELEVATED TEMP Last administered on 09/13/16 09:57; Admin Dose 500 MG; Start 09/10/16 at 01:30 Zolpidem Tartrate 5 mg 5 mg HS PRN PO INSOMNIA; Start 09/10/16 at 01:30 Sodium Chloride (1/2 NS) 1,000 ml @ 50 mls/hr Q20H IV Last administered on 01:30; Admin Dose 50 MLS/HR; Start 09/10/16 at 13:30 Ferrous Sulfate (Ferrous Sulfate (Ec)) 325 mg TID PO Last administered on 12:37; Admin Dose 325 MG; Start 09/11/16 at 21:00 Ondansetron HCl (Zofran Inj) 4 mg Q4H PRN IV NAUSEA AND/OR VOMITING Last administered on 09/11/16 20:58; Admin Dose 4 MG; Start 09/11/16 at 20:30 Apixaban (Eliquis) 5 mg BID PO Last administered on 09/14/16 08:36; Admin Dose 5 MG; Start 09/12/16 at 11:00 JENNIFER MERAZ MD Sep 14, 2016 18:52
--- NOTE | 2016-09-14 19:18 | PN ---
DATE: 09/14/2016 SUBJECTIVE: Patient denies any cough, shortness of breath or chest pain symptoms. No vaginal bleed ing, no abdominal pain. PHYSICAL EXAMINATION: GENERAL: Patient in no acute distress. VITAL SIGNS: Temperature 97.9, blood pressure 130/62, O2 sat 96% on room air. HEENT: Normocephalic. Moderate pallor without cyanosis. Tongue is coated. NECK: Supple. CHEST: Clinically clear. HEART: S1, S2. No audible gallops. EXTREMITIES: No edema. Lisseth's negative. LABORATORY DATA: Hematocrit 32.8, platelet count 197,000. Sodium 143, potassium 4.6, BUN 10, creat inine 0.89. IMPRESSION: 1. Severe anemia, status post RBC transfusion, status post D and C for menorrhagia. 2. Hypercoagulable state with a positive lupus anticoagulant. 3. Hypertension. 4. Discoid atelectasis, right mid to lower lung zone, improving. We will increase activity and recheck hemoglobin and hematocrit tomorrow morning, and if it is stabl e, will consider discharge after discussing with Dr. Lemus and Dr. Andrade. Dictated By: NIKA WEI MD, SR/NTS Conf#: [id number] DID#: [id number]
--- NOTE | 2016-09-14 19:29 | OPR ---
DATE OF OPERATION: 09/11/2016 PREOPERATIVE DIAGNOSES: Menorrhagia, lupus anticoagulant positive history of deep vein thrombosis and pulmonary emboli necessitating anticoagulant therapy, severe anemia. POSTOPERATIVE DIAGNOSES: Menorrhagia, lupus anticoagulant positive history of deep vein thrombosis and pulmonary emboli necessitating anticoagulant therapy, severe anemia. OPERATION PERFORMED: Dilatation and curettage. SURGEON: Jv Neal M.D. ANESTHESIOLOGIST: Dr. Hansen. ANESTHESIA: General. ESTIMATED BLOOD LOSS: 500 mL. COMPLICATIONS: None. PROCEDURE: The patient was brought to the operating room, placed on the operating room table and was placed under general anesthesia. Her legs were brought up into vaginal hysterectomy stirrups, and she was prepped and draped in the usual sterile fashion. A speculum was placed. The anterior lip of the cervix was grasped with a tenaculum. Cervix was already dilated due to the passage of numerous blood clots. The uterus was sounded to 11 cm and it was anteverted, so placed a tenaculum on the cervix and pulled to straighten out the canal. Used a sharp curette to scrape all of the lateral lezama as well as the fundus and just found a large amount of blood clots inside of the uterus which seemed to be expanding the uterine cavity. The lezama all felt very smooth. It was difficult to ascertain tissue amongst all the blood clots, however, did get a good uterine cry along all the lezama as well as the fundus before terminating the procedure. There were not any visible polyps or any other fragments of tissue noted. The curretage was a little difficult due to the extreme flexion of the uterus, but was able to get the procedure done. At the end of the procedure the patient did not seem to be collecting more blood inside of the uterus. She had a little bleeding at the end of the procedure, but not a lot. Terminated the procedure, all the blood clots and any tissue were handed off the field to be sent to pathology. Pressure was applied to the anterior lip of the cervix where the tenaculum was to provide hemostasis. When hemostasis was obtained, the procedure was terminated. The vault was cleaned. The speculum was removed. The patient's perineum was cleaned. Her legs were brought back down to the full supine position. She was awakened from general anesthesia and transported to the recovery room in excellent condition. Dictated By: JV CLEMONS/MARIELA Conf#: [id number] DID#: [id number] PRIMO
[2016-09-15] VITALS: BP 127/59; PULSE 76; RESP 18
[2016-09-15 00:09] VITALS: PULSE 70
[2016-09-15 04:27] VITALS: PULSE 62
[2016-09-15 05:12] VITALS: BP 115/55; PULSE 69; RESP 20
[2016-09-15 08:01] VITALS: BP 124/75; PULSE 74; RESP 18
[2016-09-15 08:14] VITALS: PULSE 70
[2016-09-15] MEDS: FERROUS SULFATE (EC) 325 MG TAB PO SCH (08:20)
[2016-09-15] MEDS: APIXABAN 5 MG TABLET PO SCH (08:21)
--- NOTE | 2016-09-15 09:02 | PN ---
DATE: 09/15/2016 HEMATOLOGY PROGRESS NOTE SUBJECTIVE: Ms. Grossman continues to do well. She is not experiencing any chest pain or shortness of breath. No further complaints of the pressure that she felt after her D and C. The patient has had no further vaginal bleeding since the D and C. No other unusual bruising or ble eding. OBJECTIVE: VITAL SIGNS: Temperature 97.5, pulse 70 per minute and regular, respirations 18, blood pressure 115 /55, pulse oximetry 96% on room air. SKIN: No ecchymosis, no petechiae or rashes. HEENT: No mucosal lesions. No scleral icterus. No mucosal purpura. NECK: Supple, no jugular venous distention or thyroid enlargement. CHEST: Clear to auscultation and percussion. No rhonchi, wheezes, rales, or rubs. HEART: Regular sinus rhythm. No S3, S4, or murmurs. ABDOMEN: Soft, obese, no masses or ascites. EXTREMITIES: Good range of motion, no clubbing, edema, or cyanosis. No palpable cords or Homans si gn. NEUROLOGIC: Normal. ASSESSMENT: 1. Anemia secondary to menorrhagia complicated by anticoagulation. 2. Deep vein thrombosis and pulmonary emboli. 3. Lupus anticoagulant. IMPRESSION AND PLAN: The patient is likely to be discharged today. Will continue on Apixaban 5 mg b.i.d. The patient has been advised to contact my office immediately should she develop any unusual bleedin g. This is particularly the case if the patient does again develop menorrhagia with her next menstr ual period. Dictated By: CARLOS HAINES MD, SR/MARIELA Conf#: [id number] DID#: [id number]
[2016-09-15] MEDS ORDERED: APIX5TAB PO (09:07)
--- NOTE | 2016-09-16 05:26 | DS ---
DATE OF ADMISSION: 09/09/2016 DATE OF DISCHARGE: 09/15/2016 FINAL DIAGNOSES 1. Severe anemia secondary to menorrhagia, status post dilation and curettage. 2. Bilateral pulmonary emboli diagnosed 3 weeks prior. 3. Hypercoagulable state with positive lupus anticoagulant. 4. Right femoral popliteal vein thrombosis. 5. Hypertension. HOSPITAL COURSE: The patient is a 51-year-old lady well known to me from previous followup, with hy pertension, status post right lower extremity deep vein thrombosis with pulmonary emboli, presenting with severe vaginal bleeding and was found to be severely anemic with a hemoglobin of 4.9 and was a dmitted. The patient had been on Xarelto, which was stopped and patient was transfused with 6 units of RBCs with hematocrit stabilizing in the 30s. The patient was seen by Dr. Neal from a [facility] who did a D and C after which getting it completely stopped. The patient did have one episod e of chest pain lasting for about 5 minutes. Doppler venous study showed no evidence of new clots. I discussed the case with Dr. Andrade and Dr. Lemus and the patient was started on Eliquis, which she was tolerating well and would consider placing a filter if she rebleeds, then have a retrievabl e IVC filter to prevent further palpation of deep vein thrombosis. The patient was discharged home in much improved condition on: 1. Eliquis 5 mg p.o. b.i.d. 2. Ferrous sulfate supplements. 3. The patient had been on Bystolic before which will be held as the blood pressure has been contro lled . The patient will be followed in the office in the course of the next 2 weeks. Followup hemoglobin a nd hematocrit will be done. Dictated By: NIKA WEI MD SR/NTS Conf#: [id number] DID#: [id number]
== END 2016-09-15 12:21 | disposition home or self-care (01) | DRG 744 ==
LOC: E/R 17:35 → MS4 20:21
PROVIDERS: ADMIT Internal Medicine; ATTEND Internal Medicine
PROC: 30233N1 Transfusion of Nonautologous Red Blood Cells into Peripheral Vein, Percutaneous Approach (ICD-10-PCS; 2016-09-09)
PROC: 30233N1 Transfusion of Nonautologous Red Blood Cells into Peripheral Vein, Percutaneous Approach (ICD-10-PCS; 2016-09-10)
PROC: 30233N1 Transfusion of Nonautologous Red Blood Cells into Peripheral Vein, Percutaneous Approach (ICD-10-PCS; 2016-09-11)
PROC: 0UDB7ZX Extraction of Endometrium, Via Natural or Artificial Opening, Diagnostic (ICD-10-PCS; principal; 2016-09-11 16:30)
DX: N92.0 Excessive and frequent menstruation with regular cycle (principal); D62 Acute posthemorrhagic anemia; D68.62 Lupus anticoagulant syndrome; D68.4 Acquired coagulation factor deficiency; I82.413 Acute embolism and thrombosis of femoral vein, bilateral; Z68.41 Body mass index [BMI] 40.0-44.9, adult; I82.433 Acute embolism and thrombosis of popliteal vein, bilateral; J98.11 Atelectasis; I10 Essential (primary) hypertension; E66.9 Obesity, unspecified; Z79.02 Long term (current) use of antithrombotics/antiplatelets
CPT/HCPCS: 36430; 36600; 71010; 80048; 80053; 82803; 84484; 85025; 85610; 85730; 86038; 86644; 86850; 86900; 86901; 86920; 93005; 93923; J0690; J1170; J2250; J2405; J3010; P9016

== ENCOUNTER → 2016-10-03 | Outpatient (CLI) | payer BC ==
[~2016-10-03] MED LIST changes: +APIX5TAB PO; -NEBI5TAB9 PO; -PANT40TA4 PO; -RIVA15TA PO; -TYL500 PO
[2016-10-03 08:01] LABS: ALBUMIN 4.1 g/dl (3.3-4.9)
[2016-10-03 08:02] LABS: POTASSIUM 4.7 mmol/L (3.5-5.1)
[2016-10-03 08:04] LABS: ALBUMIN/GLOBULIN RATIO 1.24; BILIRUBIN,INDIRECT 0.7 mg/dl (0-1.1); BILIRUBIN,TOTAL 0.7 mg/dl (0.2-1.3); CREATININE 0.8 mg/dl (0.44-1.00); TOTAL PROTEIN 7.4 g/dl (6.1-8.1)
[2016-10-03 08:05] LABS: CALCIUM 8.8 mg/dl (8.4-10.2)
[2016-10-03 08:06] LABS: BASOPHILS % 0.3 % (0.0-2.0); EOSINOPHILS # 0.2 10^3/ul (0.0-0.5); EOSINOPHILS % 1.4 % (0.0-7.0); HEMATOCRIT 39.2 % (37.0-47.0); HEMOGLOBIN 12.8 g/dl (12.0-16.0); LYMPHOCYTES # 2.5 10^3/ul (0.8-2.9); LYMPHOCYTES % 19.6 % (15.0-51.0); MEAN CORPUSCULAR HEMOGLOBIN 28.4 pg (29.0-33.0); MEAN CORPUSCULAR HGB CONC 32.7 g/dl (32.0-37.0); MEAN CORPUSCULAR VOLUME 86.7 fl (82.0-101.0); MEAN PLATELET VOLUME 8.6 fl (7.4-10.4); MONOCYTE # 0.9 10^3/ul (0.3-0.9); MONOCYTES % 7.4 % (0.0-11.0); NEUTROPHIL # 9.1 10^3/ul (1.6-7.5); NEUTROPHILS % 71.3 % (39.0-77.0); PLATELET COUNT 291 10^3/UL (140-440); RED BLOOD COUNT 4.52 10^6/ul (4.20-5.40); RED CELL DISTRIBUTION WIDTH 18.3 % (11.5-14.5); UNCORRECTED WBC 12.7 10^3/ul (4.8-10.8); WHITE BLOOD COUNT 12.7 10^3/ul (4.8-10.8)
[2016-10-03 08:22] LABS: CONDITION 1; LH ANALYZER COMMENTS 1
== END | disposition home or self-care (01) ==
LOC: LAB 07:09
PROVIDERS: ATTEND Internal Medicine
DX: D64.9 Anemia, unspecified (principal)
CPT/HCPCS: 80053; 85025

== ENCOUNTER → 2016-10-29 | Outpatient (CLI) | payer BC ==
[2016-10-29 08:06] LABS: ADD SCAN DIFF NO
[2016-10-29 08:16] LABS: BASOPHIL # 0.1 10^3/ul (0.0-0.1); BASOPHILS % 0.8 % (0.0-2.0); EOSINOPHILS # 0.3 10^3/ul (0.0-0.5); EOSINOPHILS % 3.5 % (0.0-7.0); HEMATOCRIT 39.6 % (37.0-47.0); HEMOGLOBIN 12.1 g/dl (12.0-16.0); LYMPHOCYTES # 3.8 10^3/ul (0.8-2.9); LYMPHOCYTES % 44.5 % (15.0-51.0); MEAN CORPUSCULAR HEMOGLOBIN 27.8 pg (29.0-33.0); MEAN CORPUSCULAR HGB CONC 30.6 g/dl (32.0-37.0); MEAN CORPUSCULAR VOLUME 90.8 fl (82.0-101.0); MEAN PLATELET VOLUME 10.1 fl (7.4-10.4); MONOCYTE # 0.7 10^3/ul (0.3-0.9); MONOCYTES % 7.8 % (0.0-11.0); NEUTROPHIL # 3.7 10^3/ul (1.6-7.5); NEUTROPHILS % 43.2 % (39.0-77.0); PLATELET COUNT 311 10^3/UL (140-415); RED BLOOD COUNT 4.36 10^6/ul (4.20-5.40); WHITE BLOOD COUNT 8.5 10^3/ul (4.8-10.8)
[2016-10-29 08:29] LABS: INR 0.93; PROTIME 12.5 Sec (12.2-14.2)
[2016-10-29 08:30] LABS: ALBUMIN/GLOBULIN RATIO 1.14
[2016-10-29 08:32] LABS: D-DIMER 372.31 ng/ml (<460)
[2016-10-29 08:36] LABS: ALBUMIN 3.9 g/dl (3.3-4.9); BILIRUBIN,INDIRECT 0.5 mg/dl (0-1.1); BILIRUBIN,TOTAL 0.5 mg/dl (0.2-1.3); CALCIUM 9.3 mg/dl (8.4-10.2); CREATININE 0.93 mg/dl (0.44-1.00); POTASSIUM 4.9 mmol/L (3.5-5.1); TOTAL PROTEIN 7.3 g/dl (6.1-8.1)
== END | disposition home or self-care (01) ==
LOC: LAB 07:22 → EEVIPCON 07:22
PROVIDERS: ATTEND Internal Medicine
DX: D68.59 Other primary thrombophilia (principal)
CPT/HCPCS: 80053; 85025; 85378; 85610

== ENCOUNTER → 2016-12-17 | Outpatient (CLI) | payer BC ==
--- NOTE | 2016-12-18 09:26 | RADRPT ---
PROCEDURE: XR right knee. CLINICAL INDICATION: Knee pain TECHNIQUE: AP weightbearing, PA weightbearing, lateral weightbearing and sunrise views are availab le for review. COMPARISON: 07/18/2016 FINDINGS: There is mild osteoarthrosis involving the patellofemoral compartment (minimal osteophytosis) and th e medial tibial femoral compartment (mild joint space narrowing). There is a small suprapatellar waleska nt effusion. There is otherwise normal mineralization, architecture and alignment. No fractures are identified. No osseous lesions are identified. The soft tissues are unremarkable. IMPRESSION: Mild osteoarthrosis involving the medial tibial femoral (mild joint space narrowing) and the patello femoral compartment. (Minimal osteophytosis) Small suprapatellar joint effusion RPTAT: HGDB .Pool Thapa MD, Date Time Electronically viewed and signed by .Pool Thapa MD, on 12/18/2016 09:25 .B/
== END | disposition home or self-care (01) ==
LOC: HKI 09:02
PROVIDERS: ATTEND Orthopaedic Surgery
DX: M25.561 Pain in right knee (principal); M17.11 Unilateral primary osteoarthritis, right knee
CPT/HCPCS: 73564; G0463

== ENCOUNTER → 2016-12-19 | Outpatient (CLI) | payer BC ==
--- NOTE | 2016-12-19 09:57 | RADRPT ---
PROCEDURE: Ultrasound of the right lower extremity venous system. CLINICAL INDICATION: Right leg pain and swelling, deep venous thrombosis TECHNIQUE: Jordan scale with and without compression, color doppler, spectral doppler of the venous system of the right lower extremity was performed. Venous augmentation maneuvers were utilized. COMPARISON: Right lower extremity duplex 08/22/2016 FINDINGS: Common femoral vein: Patent. Femoral vein: Patent. Popliteal vein: Patent. A small amount of reflux is noted. Calf veins: Patent. Greater saphenous vein is patent. No soft tissue abnormalities are identified. IMPRESSION: Resolution of previously seen right lower extremity deep venous thrombosis. No evidence of new deep venous thrombosis. RPTAT: AADD .Abhay Patterson MD, MD Date Time Electronically viewed and signed by .Abhay Patterson MD, on 12/19/2016 09:56 .B/
== END | disposition home or self-care (01) ==
LOC: VAS 07:42
PROVIDERS: ATTEND Internal Medicine
DX: S83.231A Complex tear of medial meniscus, current injury, right knee, initial encounter (principal); X50.0XXA Overexertion from strenuous movement or load, initial encounter
CPT/HCPCS: 93971

== ENCOUNTER → 2016-12-26 | Outpatient (CLI) | payer BC ==
[2016-12-26 08:54] LABS: ADD SCAN DIFF NO
[2016-12-26 08:59] LABS: BASOPHIL # 0.1 10^3/ul (0.0-0.1); BASOPHILS % 0.8 % (0.0-2.0); EOSINOPHILS # 0.2 10^3/ul (0.0-0.5); EOSINOPHILS % 3.1 % (0.0-7.0); HEMATOCRIT 37.1 % (37.0-47.0); HEMOGLOBIN 11.7 g/dl (12.0-16.0); LYMPHOCYTES # 2.6 10^3/ul (0.8-2.9); LYMPHOCYTES % 40.5 % (15.0-51.0); MEAN CORPUSCULAR HEMOGLOBIN 28.7 pg (29.0-33.0); MEAN CORPUSCULAR HGB CONC 31.5 g/dl (32.0-37.0); MEAN CORPUSCULAR VOLUME 90.9 fl (82.0-101.0); MEAN PLATELET VOLUME 9.5 fl (7.4-10.4); MONOCYTE # 0.5 10^3/ul (0.3-0.9); MONOCYTES % 7.1 % (0.0-11.0); NEUTROPHIL # 3.1 10^3/ul (1.6-7.5); NEUTROPHILS % 48.3 % (39.0-77.0); PLATELET COUNT 245 10^3/UL (140-415); RED BLOOD COUNT 4.08 10^6/ul (4.20-5.40); RED CELL DISTRIBUTION WIDTH 14.6 % (11.5-14.5); WHITE BLOOD COUNT 6.5 10^3/ul (4.8-10.8)
[2016-12-26 09:33] LABS: INR 1.02; PROTIME 13.4 Sec (12.2-14.2)
[2016-12-26 09:34] LABS: PARTIAL THROMBOPLASTIN TIME 26.5 Sec (25.0-35.0)
[2016-12-26 09:39] LABS: ALBUMIN 4.1 g/dl (3.3-4.9); ALBUMIN/GLOBULIN RATIO 1.2; BILIRUBIN,INDIRECT 0.8 mg/dl (0-1.1); BILIRUBIN,TOTAL 0.8 mg/dl (0.2-1.3); CALCIUM 9.1 mg/dl (8.4-10.2); CHOL/HDL RATIO 4.2 RATIO; CREATININE 0.8 mg/dl (0.44-1.00); POTASSIUM 4.4 mmol/L (3.5-5.1); TOTAL PROTEIN 7.5 g/dl (6.1-8.1)
== END | disposition home or self-care (01) ==
LOC: LAB 08:22
PROVIDERS: ATTEND Internal Medicine
DX: E78.5 Hyperlipidemia, unspecified (principal); D64.9 Anemia, unspecified
CPT/HCPCS: 80053; 80061; 85025; 85610; 85730

== ENCOUNTER 2017-01-29 16:06 | Inpatient (IN) | payer BC ==
[~2017-01-29] VITALS: Ht 177.8 cm; Wt 136.0 kg
[2017-01-29] MEDS ORDERED: morphine 4 MG/ML VIAL IV STA (17:14)
[2017-01-29] MEDS ORDERED: ONDANSETRON 4 MG INJ IV STA (17:14)
--- NOTE | 2017-01-29 17:31 | ERA ---
ER Documentation Chief Complaint Date/Time DATE: 01/29/17 TIME: 17:10 Chief Complaint R flank and abdominal pain starting today. +N/V x1, -D/Fever HPI 51-year-old female with a history of hypercoagulability with positive lupus anticoagulant on Eliquis, right femoral/popliteal vein DVT, bilateral pulmonary emboli, hypertension and anemia secondary to menorrhagia status post D&C ambulatory to the ED complaining of acute onset of sharp and crampy, nonradiating right-sided abdominal pain 4 hours ago. Pain localized to the right upper greater than the right lower quadrant. Denies dysuria, polyuria or hematuria. Last menstrual period started yesterday. Nausea with one episode of nonbloody, nonbilious emesis but no vomiting or diarrhea. Mild right flank pain which is only present with movement and relieved by rest. No ill contacts or recent travel. Denies chest pain, palpitations, shortness of breath or cough chronic lower extremity swelling which is unchanged. No fevers or chills ROS All systems reviewed and are negative except as per history of present illness. Medications Home Meds Active Scripts Apixaban* (Eliquis*) 5 Mg Tablet, 5 MG PO BID for 30 Days, #60 TAB Prov:NIKA SPENCE MD 09/15/16 Reported Medications Nebivolol* (Bystolic*) 5 Mg Tab, 5 MG PO DAILY, #30 TAB 01/29/17 Discontinued Scripts Ferrous Sulfate* (Ferrous Sulfate*) 325 Mg Tabec, 325 MG PO TID for 30 Days, # 90 TAB Prov:HANANE CARIAS MD 08/29/16 Allergies Allergies: Coded Allergies: No Known Allergy (Unverified , 01/29/17) PMhx/Soc As per HPI. Reviewed in chart History of Surgery: Yes ( 26 years ago) Anesthesia Reaction: No Hx Neurological Disorder: No Hx Respiratory Disorders: No Hx Cardiac Disorders: No Hx Psychiatric Problems: No Hx Miscellaneous Medical Probl: No Hx Alcohol Use: Yes (Socially) Hx Substance Use: No Hx Tobacco Use: No FmHx No family history of stroke, cancer or hypercoagulability Physical Exam Vitals Vital Signs Date Time Temp Pulse Resp B/P Pulse Ox O2 Delivery O2 Flow Rate FiO2 01/29/17 20:00 71 18 147/65 97 Room Air 01/29/17 19:00 70 18 156/64 96 Room Air 01/29/17 16:08 97.3 64 24 183/70 97 Physical Exam Const: Alert, moderate distress due to pain. Head: Atraumatic Eyes: Normal Conjunctiva ENT: Normal External Ears, Nose and Mouth. Neck: Full range of motion. Nontender. Resp: Breath sounds are equal and clear to auscultation bilaterally Cardio: Regular rate and rhythm, no murmurs Abd: Soft, obese, right upper greater than right lower quadrant tenderness. No rebound or guarding. Bowel sounds are present. No masses or abnormal pulsations. Skin: No petechiae or rashes Back: No midline or flank tenderness Ext: 2+ bilateral lower extremity nonpitting edema Neur: Awake and alert. No focal deficit observed. Psych: Normal Mood and Affect Result Diagram: 01/30/17 0450 01/30/17 0450 Results 24 hrs Laboratory Tests Test 01/29/17 18:00 01/29/17 20:35 White Blood Count 11.210^3/ul Red Blood Count 4.0610^6/ul Hemoglobin 11.5g/dl Hematocrit 36.4% Mean Corpuscular Volume 89.7fl Mean Corpuscular Hemoglobin 28.3pg Mean Corpuscular Hemoglobin Concent 31.6g/dl Red Cell Distribution Width 13.9% Platelet Count 78902^3/UL Mean Platelet Volume 10.6fl Neutrophils % 77.6% Lymphocytes % 15.1% Monocytes % 6.0% Eosinophils % 0.4% Basophils % 0.4% Nucleated Red Blood Cells % 0.0/100WBC Neutrophils # 8.710^3/ul Lymphocytes # 1.710^3/ul Monocytes # 0.710^3/ul Eosinophils # 0.110^3/ul Basophils # 0.110^3/ul Nucleated Red Blood Cells # 0.010^3/ul Sodium Level 140mmol/L Potassium Level 4.1mmol/L Chloride Level 105mmol/L Carbon Dioxide Level 26mmol/L Anion Gap 13 Blood Urea Nitrogen 13mg/dl Creatinine 0.92mg/dl Glucose Level 121mg/dl Calcium Level 9.1mg/dl Total Bilirubin 0.5mg/dl Direct Bilirubin 0.00mg/dl Indirect Bilirubin 0.5mg/dl Aspartate Amino Transf (AST/SGOT) 32IU/L Alanine Aminotransferase (ALT/SGPT) 46IU/L Alkaline Phosphatase 91IU/L Total Protein 7.9g/dl Albumin 4.8g/dl Globulin 3.10g/dl Albumin/Globulin Ratio 1.54 Lipase 123U/L Serum HCG, Qualitative NEGATIVE Urine Color LT. YELLOW Urine Clarity SL.HAZY Urine pH 7.5 Urine Specific Tolar 1.020 Urine Ketones NEGATIVE Urine Nitrite NEGATIVE Urine Bilirubin NEGATIVE Urine Urobilinogen 0.2 E.U./dL Urine Leukocyte Esterase NEGATIVE Urine Microscopic RBC 10-25/HPF Urine Microscopic WBC 0-2/HPF Urine Squamous Epithelial Cells FEW Urine Bacteria FEW Urine Hemoglobin 2+ Urine Glucose NEGATIVE% Urine Total Protein TRACE Current Medications Medications (Trade) Dose Ordered Sig/Lisa Route PRN Reason Start Time Stop Time Status Last Admin Dose Admin Morphine Sulfate (morphine) 4 mg ONCE STAT IV 01/29/17 17:14 01/29/17 17:16 DC 01/29/17 18:09 Ondansetron HCl 4 mg 4 mg ONCE STAT IV 01/29/17 17:14 01/29/17 17:16 DC 01/29/17 18:10 Sodium Chloride (NS) 500 ml @ 500 mls/hr Q1H STAT IV 01/29/17 17:32 01/29/17 18:31 DC 01/29/17 17:32 IV Flush 10 ml 10 ml STK-MED ONCE .ROUTE 01/29/17 21:24 01/30/17 00:38 DC Sodium Chloride (NS) 100 ml @ ud STK-MED ONCE .ROUTE 01/29/17 21:24 01/30/17 00:38 DC Iohexol (Omnipaque 300mg/ ml) 150 ml STK-MED ONCE .ROUTE 01/29/17 21:24 01/30/17 00:38 DC PROCEDURE: US Pelvis. CLINICAL INDICATION: Pelvic pain. TECHNIQUE: The pelvis was evaluated with transabdominal and transvaginal sonography in the axial and sagittal planes. COMPARISON: No prior study is available for comparison. FINDINGS: Uterus: 12.5 x 6.7 x 7.8 cm. Endometrium: 13.0 mm. There is a possible small fluid collection centrally in the endometrium measuring 3 mm. Right ovary: Not visualized. Left ovary: 2.6 x 1.7 x 2.3 cm. Uterine masses: None. Ovarian masses: The right ovary is not visualized. The left ovary is normal. Color Doppler and pulsed Doppler sonography demonstrate normal flow to the left ovary. Other pelvic masses: None. Free fluid: None. IMPRESSION: 1. Right ovary not visualized. 2. Possible small 3 mm fluid collection centrally in the endometrium. Follow- up ultrasound in 6 weeks is advised. 3. Otherwise normal pelvic ultrasound. RPTAT: QQ .Mukund Nolasco MD, Date Time Electronically viewed and signed by .Mukund Nolasco MD, MD on 01/29/2017 18:05 .R/ PROCEDURE: Right upper quadrant abdominal ultrasound. CLINICAL INDICATION: Abdominal pain TECHNIQUE: Jordan scale and color doppler ultrasound images of the right upper quadrant. COMPARISON: CT chest 08/23/2016 FINDINGS: Pancreas: Not adequately visualized due to overlying bowel gas. Liver: Morphology: Normal in size and contour. Echogenicity: Increased echogenicity of the liver parenchyma suggestive of hepatic steatosis. Focal lesions: None. Main portal vein: Not identified. Biliary System: No intrahepatic biliary dilatation. Extrahepatic biliary system and gallbladder are not visualized. Kidneys: Right 9.1 cm in length. Right renal cortical thickness is preserved. Normal echogenicity. No hydronephrosis. No renal calculi. No focal lesions. 20 cm complex hypoechoic and cystic mass/lesion is present medial to the liver which is of uncertain etiology. IMPRESSION: 20 cm complex hypoechoic and cystic mass/lesion is present medial to the liver which is of uncertain etiology. Recommend CT scan of the abdomen and pelvis with pancreatic mass protocol for further evaluation. Pancreas, gallbladder, and common bile duct are not identified. RPTAT: AADD .Abhay Patterson MD, Date Time Electronically viewed and signed by .Abhay Patterson MD, MD on 01/29/2017 20:28 .B/ PROCEDURE: CT abdomen and pelvis with intravenous contrast. CLINICAL INDICATION: Pain. TECHNIQUE: CT of the abdomen/pelvis was performed utilizing axial images with reconstructions in sagittal and coronal planes after uneventful administration of 100 cc Omnipaque 300. The administered radiation dose is CTDI 24 mGy, DLP 1547 mGy-cm. COMPARISON: Prior abdominal and pelvic ultrasounds from earlier the same day. FINDINGS: Visualized Chest: The visualized lung bases are clear. Abdomen: The spleen, pancreas, gallbladder,and adrenal glands are unremarkable. The liver is diffusely decreased in attenuation, compatible with hepatic steatosis. The kidneys are without hydronephrosis. No definite urinary calculi are seen. There is no evidence of bowel obstruction. The appendix is normal. No intra- abdominal free air is seen. There is no evidence of intra-abdominal adenopathy or free fluid. Pelvis: There is a large cystic lesion within the midline pelvis and lower abdomen which measures 16.8 (ap) x 21 (tr) x 21 (cc) cm in greatest dimensions. This is adjacent to the right ovary or a base on previous ultrasound is unlikely to be part of the ovary. A small crescent of air and soft tissue is noted along the posterolateral aspect of the lesion on the right. The left ovary and uterus are without enlargement. There is no pelvic free fluid or adenopathy. Osseous structures: Unremarkable. IMPRESSION: Large cystic lesion within the midline lower abdomen and pelvis which is of uncertain etiology. Hepatic steatosis. RPTAT: HIKT .Hemanth Cohn MD, MD Date Time Electronically viewed and signed by .Hemanth Cohn MD, MD on 01/29/2017 22:42 .T/ Procedures/MDM DOCUMENTS REVIEWED: ED nurse, prior ED, prior records REEXAMINATION/REEVALUATION: Time:19:40. Doing well. Pain decrease. MEDICAL DECISION MAKIN-year-old female with a history of hypercoagulability with positive lupus anticoagulant on Eliquis, right femoral/ popliteal vein DVT, bilateral pulmonary emboli, hypertension and anemia secondary to menorrhagia status post D&C ambulatory to the ED complaining of acute onset of sharp and crampy, nonradiating right-sided abdominal pain 4 hours ago. Pelvic ultrasound revealed a large cystic mass possibly arising from the pancreas. The right ovary was not visualized. CT of the abdomen and pelvis with contrast reveals a large cystic mass not related to the pancreas but possibly arising from the right ovary and producing torsion. Pain resolved with intravenous hydration, analgesics and antiemetics. Patient be admitted to [facility] for pain control, LINING [employer]INTER consult, further evaluation and management. OBSERVATION NOTE: At 17:15 the patient was entered into observation status to establish the need for admission. During this time the patient was treated for abdominal pain. Additionally, extensive evaluation including, CBC, Chemistry, Urinalysis, ultrasound and CAT scan of the abdomen and pelvis were preformed and results interpreted as above. Vitals signs were monitored and repeat exams were performed every 15-20 minutes. At 23:15 the patient was reexamined; pain decreased but still with abdominal tenderness and CT findings of a large cystic mass suspicious for ovarian torsion. Based on these findings the patient was discharged from observation period at 23:15 as it was determined that the patient met criteria for admission. Total observation time: 6 hours. Counseled patient and family regarding diagnosis, diagnostic results and plan for admission. CALLS/CONSULTS: Time 23:15, Dr. Frias, recommends admission and will consult. Patient likely will require surgical removal. CALLS/CONSULTS: Time 23:20, Dr. Spence, Recommends admission to [facility]. PATIENT CARE TRANSITIONED: Time: 23:20, Dr. Spence. Departure Diagnosis: Primary Impression: Acute abdominal pain Additional Impressions: Abdominal mass Qualified Code: R19.00 - Abdominal mass, unspecified location Lupus anticoagulant positive History of pulmonary embolism History of DVT (deep vein thrombosis) Condition: Serious FRANK GONZALEZ MD Jan 29, 2017 17:31
[2017-01-29] MEDS ORDERED: SOD CHLORIDE 0.9% 500 ML IV STA (17:32)
[2017-01-29] MEDS ORDERED: NEBI5TAB9 PO (17:43)
--- NOTE | 2017-01-29 18:06 | RADRPT ---
PROCEDURE: US Pelvis. CLINICAL INDICATION: Pelvic pain. TECHNIQUE: The pelvis was evaluated with transabdominal and transvaginal sonography in the axial a nd sagittal planes. COMPARISON: No prior study is available for comparison. FINDINGS: Uterus: 12.5 x 6.7 x 7.8 cm. Endometrium: 13.0 mm. There is a possible small fluid collection centrally in the endometrium measur ing 3 mm. Right ovary: Not visualized. Left ovary: 2.6 x 1.7 x 2.3 cm. Uterine masses: None. Ovarian masses: The right ovary is not visualized. The left ovary is normal. Color Doppler and puls ed Doppler sonography demonstrate normal flow to the left ovary. Other pelvic masses: None. Free fluid: None. IMPRESSION: 1. Right ovary not visualized. 2. Possible small 3 mm fluid collection centrally in the endometrium. Follow-up ultrasound in 6 we eks is advised. 3. Otherwise normal pelvic ultrasound. RPTAT: QQ .Mukund Nolasco MD, MD Date Time Electronically viewed and signed by .Mukund Nolasco MD, on 01/29/2017 18:05 .R/
[2017-01-29 18:31] LABS: ADD SCAN DIFF NO
[2017-01-29 18:35] LABS: BASOPHIL # 0.1 10^3/ul (0.0-0.1); BASOPHILS % 0.4 % (0.0-2.0); EOSINOPHILS # 0.1 10^3/ul (0.0-0.5); EOSINOPHILS % 0.4 % (0.0-7.0); HEMATOCRIT 36.4 % (37.0-47.0); HEMOGLOBIN 11.5 g/dl (12.0-16.0); LYMPHOCYTES # 1.7 10^3/ul (0.8-2.9); LYMPHOCYTES % 15.1 % (15.0-51.0); MEAN CORPUSCULAR HEMOGLOBIN 28.3 pg (29.0-33.0); MEAN CORPUSCULAR HGB CONC 31.6 g/dl (32.0-37.0); MEAN CORPUSCULAR VOLUME 89.7 fl (82.0-101.0); MEAN PLATELET VOLUME 10.6 fl (7.4-10.4); MONOCYTE # 0.7 10^3/ul (0.3-0.9); NEUTROPHIL # 8.7 10^3/ul (1.6-7.5); NEUTROPHILS % 77.6 % (39.0-77.0); PLATELET COUNT 246 10^3/UL (140-415); RED BLOOD COUNT 4.06 10^6/ul (4.20-5.40); RED CELL DISTRIBUTION WIDTH 13.9 % (11.5-14.5); WHITE BLOOD COUNT 11.2 10^3/ul (4.8-10.8)
[2017-01-29 18:52] LABS: ALBUMIN 4.8 g/dl (3.3-4.9); ALBUMIN/GLOBULIN RATIO 1.54; BILIRUBIN,INDIRECT 0.5 mg/dl (0-1.1); BILIRUBIN,TOTAL 0.5 mg/dl (0.2-1.3); CALCIUM 9.1 mg/dl (8.4-10.2); CREATININE 0.92 mg/dl (0.44-1.00); POTASSIUM 4.1 mmol/L (3.5-5.1); TOTAL PROTEIN 7.9 g/dl (6.1-8.1)
--- NOTE | 2017-01-29 20:28 | RADRPT ---
PROCEDURE: Right upper quadrant abdominal ultrasound. CLINICAL INDICATION: Abdominal pain TECHNIQUE: Jordan scale and color doppler ultrasound images of the right upper quadrant. COMPARISON: CT chest 08/23/2016 FINDINGS: Pancreas: Not adequately visualized due to overlying bowel gas. Liver: Morphology: Normal in size and contour. Echogenicity: Increased echogenicity of the liver parenchyma suggestive of hepatic steatosis. Focal lesions: None. Main portal vein: Not identified. Biliary System: No intrahepatic biliary dilatation. Extrahepatic biliary system and gallbladder are not visualized. Kidneys: Right 9.1 cm in length. Right renal cortical thickness is preserved. Normal echogenicity. No hydronephrosis. No renal calculi. No focal lesions. 20 cm complex hypoechoic and cystic mass/lesion is present medial to the liver which is of uncertain etiology. IMPRESSION: 20 cm complex hypoechoic and cystic mass/lesion is present medial to the liver which is of uncertain etiology. Recommend CT scan of the abdomen and pelvis with pancreatic mass protocol for further jayla luation. Pancreas, gallbladder, and common bile duct are not identified. RPTAT: AADD .Abhay Patterson MD, MD Date Time Electronically viewed and signed by .Abhay Patterson MD, MD on 01/29/2017 20:28 .B/
[2017-01-29 21:17] LABS: ADD UMIC YES; UR BILIRUBIN (Dip) NEGATIVE (NEGATIVE); UR BLOOD (Dip) 2+ (NEGATIVE); UR COLOR LT. YELLOW (YELLOW); UR GLUCOSE (Dip) NEGATIVE (NEGATIVE); UR KETONES (Dip) NEGATIVE (NEGATIVE); UR LEUKOCYTE ESTERASE (Dip) NEGATIVE (NEGATIVE); UR NITRITE (Dip) NEGATIVE (NEGATIVE); UR TOTAL PROTEIN (Dip) TRACE (NEGATIVE); UR UROBILINOGEN (Dip) 0.2 E.U./dL (0.1-1.0)
[2017-01-29] MEDS ORDERED: SOD CHLORIDE 0.9% 100 ML ONE (21:24)
[2017-01-29] MEDS ORDERED: IOHEXOL 300MG/ML 150 ML BTL ONE (21:24)
[2017-01-29 21:43] LABS: UR CLARITY SL.HAZY (CLEAR)
[2017-01-29 21:44] LABS: UR BACTERIA FEW; UR SQUAMOUS EPITHELIAL CELL FEW
--- NOTE | 2017-01-29 22:43 | RADRPT ---
AMENDMENT: 01/29/2017 11:10:09 PM Hemanth Cohn Comparison is again made to the prior pelvic ultrasound. Since the ovary is not visualized on the u ltrasound, the possibility that the large cystic lesion originates from the ovary would not be exclu ded. If the patient has pelvic pain, ovarian torsion should be considered. Findings were discussed with FRANK CHRISTIE at approximately 01/29/2017 11:09:48 PM. PROCEDURE: CT abdomen and pelvis with intravenous contrast. CLINICAL INDICATION: Pain. TECHNIQUE: CT of the abdomen/pelvis was performed utilizing axial images with reconstructions in s agittal and coronal planes after uneventful administration of 100 cc Omnipaque 300. The administered radiation dose is CTDI 24 mGy, DLP 1547 mGy-cm. COMPARISON: Prior abdominal and pelvic ultrasounds from earlier the same day. FINDINGS: Visualized Chest: The visualized lung bases are clear. Abdomen: The spleen, pancreas, gallbladder,and adrenal glands are unremarkable. The liver is diffusely dec reased in attenuation, compatible with hepatic steatosis. The kidneys are without hydronephrosis. No definite urinary calculi are seen. There is no evidence of bowel obstruction. The appendix is normal. No intra-abdominal free air is seen. There is no evidence of intra-abdominal adenopathy or free fluid. Pelvis: There is a large cystic lesion within the midline pelvis and lower abdomen which measures 16.8 (ap) x 21 (tr) x 21 (cc) cm in greatest dimensions. This is adjacent to the right ovary or a base on pre vious ultrasound is unlikely to be part of the ovary. A small crescent of air and soft tissue is no gume along the posterolateral aspect of the lesion on the right. The left ovary and uterus are witho ut enlargement. There is no pelvic free fluid or adenopathy. Osseous structures: Unremarkable. IMPRESSION: Large cystic lesion within the midline lower abdomen and pelvis which is of uncertain etiology. Hepatic steatosis. RPTAT: HIKT .Hemanth Cohn MD, Date Time Electronically viewed and signed by .Hemanth Cohn MD, on 01/29/2017 23:13 .T/
[2017-01-29 23:35] VITALS: TEMP 98.9
[2017-01-30] MEDS ORDERED: ACETAMINOPHEN 325 MG TAB PO PRN
[2017-01-30] MEDS ORDERED: ONDANSETRON 4 MG INJ IV PRN
[2017-01-30 01:40] VITALS: Ht 177.8 cm; Wt 136.0 kg
[2017-01-30 02:23] VITALS: BP 133/61; RESP 20
[2017-01-30] MEDS ORDERED: morphine 4 MG/ML VIAL IV PRN (02:30)
[2017-01-30] MEDS: DEXTROSE 5%-0.225% NACL 1,000 ML IV SCH ×3 (03:40→18:46)
[2017-01-30 05:13] LABS: ADD SCAN DIFF NO
[2017-01-30 05:27] LABS: BASOPHILS % 0.5 % (0.0-2.0); EOSINOPHILS # 0.1 10^3/ul (0.0-0.5); HEMATOCRIT 33.4 % (37.0-47.0); HEMOGLOBIN 10.7 g/dl (12.0-16.0); LYMPHOCYTES # 2.2 10^3/ul (0.8-2.9); LYMPHOCYTES % 28.4 % (15.0-51.0); MEAN CORPUSCULAR HEMOGLOBIN 28.9 pg (29.0-33.0); MEAN CORPUSCULAR VOLUME 90.3 fl (82.0-101.0); MEAN PLATELET VOLUME 10.2 fl (7.4-10.4); MONOCYTE # 0.8 10^3/ul (0.3-0.9); MONOCYTES % 9.7 % (0.0-11.0); NEUTROPHIL # 4.7 10^3/ul (1.6-7.5); PLATELET COUNT 226 10^3/UL (140-415); WHITE BLOOD COUNT 7.8 10^3/ul (4.8-10.8)
[2017-01-30 05:42] LABS: ALBUMIN 3.9 g/dl (3.3-4.9); ALBUMIN/GLOBULIN RATIO 1.44; BILIRUBIN,INDIRECT 0.5 mg/dl (0-1.1); BILIRUBIN,TOTAL 0.5 mg/dl (0.2-1.3); CALCIUM 8.7 mg/dl (8.4-10.2); CREATININE 0.84 mg/dl (0.44-1.00); POTASSIUM 4.1 mmol/L (3.5-5.1); TOTAL PROTEIN 6.6 g/dl (6.1-8.1)
[2017-01-30 06:33] LABS: CANCER ANTIGEN 125 15.2 U/ml (0.0-35.0)
[2017-01-30 07:00] VITALS: BP 120/60; RESP 18
[2017-01-30] MEDS: NEBIVOLOL 5 MG TAB PO SCH (08:35)
--- NOTE | 2017-01-30 10:51 | QN ---
Documentation Comment 51 y.o with right pelvic mass pt currently doing well with minimal pain ho of DVT?PE on eliquis vss a/p large pelvic mass-discussed with DR lynn and it is felt to be a right ovarian mass. ca 125 nl GYNONC-dr rider called for consult and surgery evaluation. will follow JERRELL ESPOSITO MD Jan 30, 2017 10:51
--- NOTE | 2017-01-30 15:12 | HP ---
DATE OF ADMISSION: 01/29/2017 CHIEF COMPLAINT AND HISTORY OF PRESENT ILLNESS: The patient is a 51-year-old lady who is well known to me from a previous followup, who presents with severe right-sided abdominal pain, for the last s everal hours, yesterday, and then it radiated from the right upper quadrant to the right lower quadr ant, with some radiation to the back, with some nausea. The patient denied any fever or chills. Th e patient denies any constipation or diarrhea. Her period started yesterday as well. MEDICATIONS: Include: 1. Eliquis 5 mg b.i.d. 2. Bystolic 5 mg p.o. daily. 3. Ferrous sulfate, which she has discontinued recently. REVIEW OF SYSTEMS: HEAD: No history of headaches, focal weakness, or numbness. EYES: No blurry vision or glaucoma. ENT: Noncontributory. NECK: No history of thyroid disease. CHEST: No bronchitis, hay fever, or asthma. The patient does not smoke. History of bilateral pulm onary emboli, diagnosed in August of 2016, on Eliquis. CARDIOVASCULAR: No PND, orthopnea or palpitations. No history of UT or angina. GASTROINTESTINAL: No constipation, diarrhea or change in bowel habits. GENITOURINARY: No dysuria, hematuria or kidney stones. PAST SURGICAL HISTORY: The patient has had irregular periods. Her last period before this was in Ap ril. Her periods have been somewhat heavy. She had a D and C in late August, which improved flavio rhagia. MUSCULOSKELETAL: History of meniscus tear, right knee. VASCULAR: History of DVT, right femoral popliteal vein, along with bilateral pulmonary emboli. The patient does have a hypercoagulable state, namely positive for lupus anticoagulant. PHYSICAL EXAMINATION: GENERAL: The patient is an average-built female, who is very pleasant. VITAL SIGNS: Temperature 98.9, blood pressure 150/62, respiratory rate 20 per minute. HEENT: Head normocephalic. Mild pallor, without cyanosis. Tongue is coated, dry. NECK: Supple. No thyromegaly, bruits, or lymphadenopathy. LUNGS: Clinically clear. HEART: S1, S2 heard. No definite gallops. ABDOMEN: Soft, obese, presently no tenderness. Bowel sounds are active. EXTREMITIES: No edema. Homans sign is negative. NEUROLOGIC: No localizing or lateralizing signs. PELVIC, RECTAL, BREAST EXAM: Deferred per patient's request. LABORATORY DATA: Initial WBC count 11.2, hematocrit 36.4, platelet count 246,000. Sodium 140, pota ssium 4.1, BUN is 13, creatinine 0.92. LFTs are normal. CA-125 is 15.2. Serum hCG qualitative is negative. Pelvic ultrasound shows poor visualization of the right ovary. A 3-mm fluid collection i n the endometrium. Gallbladder ultrasound, a 20-cm hypoechoic cystic lesion present medial to the l iver, of uncertain etiology. CAT scan of the abdomen and pelvis was performed. Hepatitic steatosis and there is a large cystic lesion within the midline pelvis in the lower abdomen adjacent to the r ight ovary, of uncertain etiology. IMPRESSION: 1. Pelvic mass, likely right ovarian. 2. Hypercoagulable state, with positive lupus anticoagulant, status post bilateral pulmonary emboli and right lower extremity DVT, diagnosed in August. 3. Hypertension. PLAN: Will discuss with the patient's bankruptcy judge, Dr. Neal, and will hold Eliquis for now. Con soakers supervisor surgical excision of the mass. Dictated By: NIKA WEI MD SR/NTS Conf#: [id number] DID#: [id number]
[2017-01-30 19:00] VITALS: BP 126/59; RESP 19
--- NOTE | 2017-01-30 23:38 | QN ---
Documentation Comment 51 y/o female admitted with severe abd pain that then resolved and 18 cm mass. Of note had DVT 6 mo ago and has been on Eliquis. Also c/o menorrhagia. PE Obese Uterus enlge, central cystic mass. No cul-de sac nodularity Concur surgery indicated and can be done laparoscopically. Question is : 1- since she has been on Elaquis 6 mo do we simply do a doppler and if negative stop Elaquis and if so how many days before surgery. 2- Patient considering options of USO vs BSO vs hysterectomy with BSO. 3- if Elaquis stays on due to risk or DVT must have IVC filter. Thanks will do consult KELLY Shah MD Jan 30, 2017 23:38
[2017-01-31 05:11] LABS: ADD SCAN DIFF NO
[2017-01-31 05:35] LABS: INR 1.03; PROTIME 13.5 Sec (12.2-14.2); PT RATIO 1.1
[2017-01-31 05:38] LABS: CALCIUM 8.3 mg/dl (8.4-10.2); CREATININE 0.82 mg/dl (0.44-1.00); MAGNESIUM 1.9 mg/dl (1.7-2.5); POTASSIUM 3.7 mmol/L (3.5-5.1)
[2017-01-31 05:56] LABS: BASOPHILS % 0.5 % (0.0-2.0); EOSINOPHILS # 0.2 10^3/ul (0.0-0.5); EOSINOPHILS % 3.4 % (0.0-7.0); HEMATOCRIT 33.5 % (37.0-47.0); HEMOGLOBIN 10.4 g/dl (12.0-16.0); LYMPHOCYTES # 2.2 10^3/ul (0.8-2.9); LYMPHOCYTES % 37.3 % (15.0-51.0); MEAN CORPUSCULAR HEMOGLOBIN 28.5 pg (29.0-33.0); MEAN CORPUSCULAR VOLUME 91.8 fl (82.0-101.0); MEAN PLATELET VOLUME 10.2 fl (7.4-10.4); MONOCYTE # 0.6 10^3/ul (0.3-0.9); MONOCYTES % 9.4 % (0.0-11.0); NEUTROPHIL # 2.9 10^3/ul (1.6-7.5); NEUTROPHILS % 49.1 % (39.0-77.0); PLATELET COUNT 205 10^3/UL (140-415); RED BLOOD COUNT 3.65 10^6/ul (4.20-5.40); RED CELL DISTRIBUTION WIDTH 14.2 % (11.5-14.5); WHITE BLOOD COUNT 5.8 10^3/ul (4.8-10.8)
[2017-01-31] MEDS: DEXTROSE 5%-0.225% NACL 1,000 ML IV SCH ×2 (06:50→23:16)
[2017-01-31 07:00] VITALS: BP 136/71; RESP 20
[2017-01-31] MEDS: NEBIVOLOL 5 MG TAB PO SCH (08:50)
--- NOTE | 2017-01-31 13:13 | CONS ---
Date/Time of Note Date/Time of Note DATE: 01/31/17 TIME: 13:11 Consultation Date/Type/Reason Admit Date/Time Jan 29, 2017 at 23:34 Hx of Present Illness Suleman Page M.D. 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 The mass is complex and 18 cm and associated with pain and menorrhagia and a DVT 6 mo ago. Medical history/ROS: DVT. Surgical history: no significant abdominal procedures. Medications: Elaquis gardisil Allergies: No active allergies recorded Family Hx: non-contributary Social HX: non-contributary ROS: as above Colonoscopy Physical Examination General: Alert. Obese HEENT: Pupils are equal, round, reactive to light and accommodation. Neck: Supple with no masses of lymphadenopathy. Breast: Deferred due to recent examination and responsibility of primary care physician. Chest: Clear to auscultation Heart: Normal rhythm with no murmur. Abdomen: Mildly tender, no ascites nor organomeglay. Pelvic exam: Uterus enlgd and soft, central cystic mass or cul-de-sac nodularity noted Rectal: confirmatory with pelvic exam. Neurological: Grossly intact Assessment: Pelvic-abdominal mass Plan; Discuss with Dr. Davis whether ongoing Eliquis and consider need for IVC filter: Laparoscopy possible USO possible BSO possible TLH/BSO, possible staging. All risks and benefits of this procedure have been discussed in detail with the patient, as well as alternative treatment strategies and their implications. The patient is aware that there is some possibility of a blood transfusion and its associated risks and benefits. She wishes to proceed and gives her informed consent. Suleman Page M.D. Social History Smoking Status: Never smoker Exam/Review of Systems Vital Signs Vitals Vital Signs Date Time Temp Pulse Resp B/P Pulse Ox O2 Delivery O2 Flow Rate FiO2 01/31/17 07:00 97.7 61 20 136/71 98 01/30/17 00:51 Room Air Intake and Output 01/30/17 01/30/17 01/31/17 15:00 23:00 07:00 Intake Total 810 ml 1550 ml Balance 810 ml 1550 ml Results Result Diagram: 01/31/17 0430 01/31/17 0430 Results 24 hrs Laboratory Tests Test 01/31/17 04:30 White Blood Count 5.8 # Red Blood Count 3.65 L Hemoglobin 10.4 L Hematocrit 33.5 L Mean Corpuscular Volume 91.8 Mean Corpuscular Hemoglobin 28.5 L Mean Corpuscular Hemoglobin Concent 31.0 L Red Cell Distribution Width 14.2 Platelet Count 205 Mean Platelet Volume 10.2 Neutrophils % 49.1 Lymphocytes % 37.3 Monocytes % 9.4 Eosinophils % 3.4 Basophils % 0.5 Nucleated Red Blood Cells % 0.0 Neutrophils # 2.9 Lymphocytes # 2.2 Monocytes # 0.6 Eosinophils # 0.2 Basophils # 0.0 Nucleated Red Blood Cells # 0.0 Prothrombin Time 13.5 Prothrombin Time Ratio 1.1 INR International Normalized Ratio 1.03 Activated Partial Thromboplast Time 25.0 Sodium Level 137 Potassium Level 3.7 Chloride Level 104 Carbon Dioxide Level 28 Anion Gap 9 Blood Urea Nitrogen 8 Creatinine 0.82 Glucose Level 105 Calcium Level 8.3 L Magnesium Level 1.9 Medications Medications Current Medications Morphine Sulfate (morphine) 4 mg Q4H PRN IV PAIN; Start 01/30/17 at 02:30 Ondansetron HCl 4 mg 4 mg Q4H PRN IV NAUSEA AND/OR VOMITING; Start 01/30/17 at 02:30 Dextrose/Sodium Chloride (D5-1/4ns) 1,000 ml @ 75 mls/hr [id number] IV Last administered on 01/31/17 06:50; Admin Dose 75 MLS/HR; Start 01/30/17 at 02:30 Miscellaneous Medication (Bystolic) 5 mg DAILY PO Last administered on 08:50; Admin Dose 5 MG; Start 01/30/17 at 09:00 SULMEAN PAGE MD Jan 31, 2017 13:13
[2017-01-31 19:00] VITALS: BP 115/70; RESP 18
--- NOTE | 2017-01-31 19:13 | PN ---
DATE: 01/31/2017 SUBJECTIVE: The patient overall feels well. Denies any chest pain. Complains of vaginal bleeding with minimal movement. Denies any shortness of breath. PHYSICAL EXAMINATION: GENERAL: The patient is afebrile. Blood pressure 136/71, heart rate 60 per minute and regular. Pu lse ox is 98% on room air. HEENT: Head normocephalic. No pallor, cyanosis, or icterus. CHEST: Clear. ABDOMEN: Soft, obese, nontender. EXTREMITIES: No edema. Homans negative. LABORATORY: WBC 5.8, hematocrit 33.5. Sodium 137, potassium 3.7, BUN 8, creatinine 0.82, magnesium 1.9. PT/INR 1.03, PTT 25. IMPRESSION: 1. Pelvic mass, likely right ovarian mass, with abdominal pain. 2. Menorrhagia secondary to anticoagulants, with anemia. 3. Hypercoagulable state, with positive anticoagulant, status post bilateral pulmonary emboli in August of 2016. 4. Hypertension. PLAN: The patient has already been seen by Dr. Nieves, whose recommendations are greatly apprecia gume. I discussed the case with Dr. Nieves. Will request a hematology consultation with Dr. Janet kim and consideration of an IVC filter as well prior to the surgery. The patient has been off Eliqui s for the last 2 days. Will consider starting her on Lovenox, which can be discontinued 24 hours bef ore the placement of filter. Will repeat labs in the a.m. The patient's condition was discussed with the patient's , Chauncey. Dictated By: NIKA WEI MD, SR/MARIELA Conf#: [id number] DID#: [id number]
[2017-01-31] MEDS ORDERED: ENOXAPARIN 60 MG/0.6 ML SYG SC SCH (21:00)
[2017-01-31] MEDS: ENOXAPARIN 60 MG/0.6 ML SYG SC SCH (21:38)
[2017-02-01 06:42] LABS: ADD SCAN DIFF NO
[2017-02-01 07:02] LABS: BASOPHILS % 0.6 % (0.0-2.0); EOSINOPHILS # 0.2 10^3/ul (0.0-0.5); EOSINOPHILS % 3.1 % (0.0-7.0); HEMATOCRIT 34.2 % (37.0-47.0); HEMOGLOBIN 10.8 g/dl (12.0-16.0); LYMPHOCYTES # 2.2 10^3/ul (0.8-2.9); MEAN CORPUSCULAR HEMOGLOBIN 28.8 pg (29.0-33.0); MEAN CORPUSCULAR HGB CONC 31.6 g/dl (32.0-37.0); MEAN CORPUSCULAR VOLUME 91.2 fl (82.0-101.0); MEAN PLATELET VOLUME 11.3 fl (7.4-10.4); MONOCYTE # 0.7 10^3/ul (0.3-0.9); NEUTROPHIL # 3.3 10^3/ul (1.6-7.5); NEUTROPHILS % 50.8 % (39.0-77.0); PLATELET COUNT 196 10^3/UL (140-415); RED BLOOD COUNT 3.75 10^6/ul (4.20-5.40); RED CELL DISTRIBUTION WIDTH 13.9 % (11.5-14.5); WHITE BLOOD COUNT 6.5 10^3/ul (4.8-10.8)
[2017-02-01 07:03] LABS: INR 0.92; PROTIME 12.4 Sec (12.2-14.2)
[2017-02-01 07:04] LABS: PARTIAL THROMBOPLASTIN TIME 26.6 Sec (25.0-35.0)
[2017-02-01 07:12] LABS: CALCIUM 8.5 mg/dl (8.4-10.2); CREATININE 0.82 mg/dl (0.44-1.00); POTASSIUM 3.9 mmol/L (3.5-5.1)
[2017-02-01 08:17] VITALS: BP 136/80; RESP 64
[2017-02-01] MEDS: NEBIVOLOL 5 MG TAB PO SCH (08:39)
[2017-02-01] MEDS: ENOXAPARIN 60 MG/0.6 ML SYG SC SCH ×2 (08:46→20:31)
--- NOTE | 2017-02-01 08:52 | CONS ---
Date/Time of Note Date/Time of Note DATE: 02/01/17 TIME: 08:38 Assessment/Plan Assessment/Plan Problems: (1) Acute abdominal pain Status: Acute (2) Abdominal mass Status: Acute Qualifiers: Qualified Code: R19.00 - Abdominal mass, unspecified location (3) History of pulmonary embolism Status: Chronic (4) History of DVT (deep vein thrombosis) Status: Chronic (5) Lupus anticoagulant positive Status: Chronic Additional Assessment/Plan Negrita Grossman is a 51yo female with a history of DVT/PE associated with antiphosholipid syndrome who now presents to this hospital with pelvic pain. Workup reveals a 20cm right sided pelvic mass which should be explored surgically and removed. Pt is currently on Eliquis 5mg bid to maintain anticoagulation and prevent another DVT/PE. Pt will have to come off of anticoagulation ariadna-operatively and as a result her risk of developing another DVT/PE will be quite high. Pelvic surgery and severe obesity adds to the risk of DVT/PE so I would recommend placement of an IVC filter just prior to surgery. Furthermore, the pt may harbor a malignancy which also adds to the risk. Pt at this time has been transitioned to Lovenox 1mg/kg bid prior to surgery. Lovenox should be held 24 hours prior to surgery. Full anticoagulation should be resumed post-operatively once cleared by regulatory assistant onc. At the very least, DVT ppx dose of Lovenox or heparin should be started shortly after surgery. IVC filter can be removed at a later time but within 3 months of insertion so that retrieval is not more difficult. This pt should ideally remain anticoagulated indefinitely due to her high risk of developing a VTE or arterial clot as a result of having antiphospholipid syndrome. Dr. Lemus will resume care in am. Sincerely, Kvng Martins MD Consultation Date/Type/Reason Admit Date/Time Jan 29, 2017 at 23:34 Date of Consultation: Feb 01, 2017 Type of Consultation: Hematology Oncology Consult Reason for Consultation Management of hypercoagulable state while undergoing pelvic surgery Hx of Present Illness Dear Colleagues, Negrita Grossman is a 51yo female with a past medical history notable for DVT/PE, diagnosed earlier this year and associated with antiphospholipid syndrome, who was admitted to this hospital 3 days ago with pelvic pain. Workup revealed a complex pelvic mass likely arising from the right ovary measuring nearly 20cm. The pt has been on Eliquis 5mg bid but I have been asked to discuss the role of anticoagulation during this ariadna-operative period and to determine if an IVC filter may be necessary to insert. Gastrointestinal: blood, constipation, decreased appetite, diarrhea, flatus, nausea, no complaints, other, pain, passing stool, vomiting Past Surgical History Past Surgical Hx: other () Family History Significant Family History: no pertinent family hx Social History Alcohol Use: rarely Smoking Status: Never smoker Drug Use: none Exam/Review of Systems Vital Signs Vitals Vital Signs Date Time Temp Pulse Resp B/P Pulse Ox O2 Delivery O2 Flow Rate FiO2 02/01/17 08:17 97.9 18 64 136/80 98 01/30/17 00:51 Room Air Intake and Output 01/31/17 01/31/17 02/01/17 15:00 23:00 07:00 Intake Total 850 ml 1012.5 ml Balance 850 ml 1012.5 ml Exam Constitutional: alert, oriented Gastrointestinal: other (obese) Results Result Diagram: 02/01/17 0504 02/01/17 0504 Results 24 hrs Laboratory Tests Test 02/01/17 05:04 White Blood Count 6.5 Red Blood Count 3.75 L Hemoglobin 10.8 L Hematocrit 34.2 L Mean Corpuscular Volume 91.2 Mean Corpuscular Hemoglobin 28.8 L Mean Corpuscular Hemoglobin Concent 31.6 L Red Cell Distribution Width 13.9 Platelet Count 196 Mean Platelet Volume 11.3 H Neutrophils % 50.8 Lymphocytes % 34.0 Monocytes % 11.0 Eosinophils % 3.1 Basophils % 0.6 Nucleated Red Blood Cells % 0.0 Neutrophils # 3.3 Lymphocytes # 2.2 Monocytes # 0.7 Eosinophils # 0.2 Basophils # 0.0 Nucleated Red Blood Cells # 0.0 Prothrombin Time 12.4 Prothrombin Time Ratio 1.0 INR International Normalized Ratio 0.92 Activated Partial Thromboplast Time 26.6 Sodium Level 137 Potassium Level 3.9 Chloride Level 106 Carbon Dioxide Level 25 Anion Gap 10 Blood Urea Nitrogen 8 Creatinine 0.82 Glucose Level 101 Calcium Level 8.5 Medications Medications Current Medications Morphine Sulfate (morphine) 4 mg Q4H PRN IV PAIN; Start 01/30/17 at 02:30 Ondansetron HCl 4 mg 4 mg Q4H PRN IV NAUSEA AND/OR VOMITING; Start 01/30/17 at 02:30 Dextrose/Sodium Chloride (D5-1/4ns) 1,000 ml @ 75 mls/hr [id number] IV Last administered on 01/31/17 23:16; Admin Dose 75 MLS/HR; Start 01/30/17 at 02:30 Miscellaneous Medication (Bystolic) 5 mg DAILY PO Last administered on 08:50; Admin Dose 5 MG; Start 01/30/17 at 09:00 Enoxaparin Sodium (Lovenox) 120 mg BID SC Last administered on 01/31/17 21:38 ; Admin Dose 120 MG; Start 01/31/17 at 21:00 KVNG MARTINS Feb 01, 2017 08:52
[2017-02-01] MEDS ORDERED: LIDOCAINE 1% (MPF) 5 ML VIAL SC ONE (18:30)
[2017-02-01 20:30] VITALS: BP 139/65; RESP 19
[2017-02-01] MEDS: DEXTROSE 5%-0.225% NACL 1,000 ML IV SCH (20:31)
--- NOTE | 2017-02-02 08:01 | PN ---
DATE: 02/01/2017 SUBJECTIVE: The patient continues to have minimal vaginal bleeding, occasional clots. No chest horace n of difficulty breathing. No abdominal pains today. PHYSICAL EXAMINATION: GENERAL: The patient is afebrile. Temperature 97.9, blood pressure 136/80, respiration 20 per true te. LUNGS: Clinically clear. HEART: S1, S2 with no definite gallops. ABDOMEN: Soft, nontender. No hepatosplenomegaly. EXTREMITIES: No edema. Homans sign is negative. NEUROLOGIC: No localizing or lateralizing signs. LABORATORY DATA: WBC count 6.3, hematocrit 34.2, platelet count ___,000. Sodium 137, potassium 3.9 , BUN 8, creatinine 0.82. Dr. Cunha's hematology consultation and recommendation is greatly appreciated. IMPRESSION: 1. Pelvic mass with abdominal pain. 2. Menorrhagia secondary an anticoagulant with anemia, stable. 3. Hypercoagulable state with positive lupus anticoagulant with status post bilateral pulmonary emb katerina in August 2016 with antiphospholipid syndrome. 4. Hypertension. PLAN: Will discuss with Dr. Lemus and consider placing an IVC filter. The patient has poor acces s for blood draw. Will get a PICC line inserted as well. Vascular evaluation. Dictated By: NIKA WEI MD SR/MARIELA Conf#: [id number] DID#: [id number]
--- NOTE | 2017-02-02 08:01 | PN ---
DATE: 02/01/2017 ADDENDUM Vascular consultation was requested with Dr. Gillespie, who is covering for Dr. Hassan, and will follow nj s recommendations. Dictated By: NIKA WEI MD SR/NTS Conf#: [id number] DID#: [id number]
[2017-02-02 08:11] VITALS: BP 136/77; RESP 16
--- NOTE | 2017-02-02 08:19 | PN ---
DATE: 02/02/2017 HEMATOLOGY PROGRESS NOTE SUBJECTIVE: The patient is not now experiencing abdominal pain. She has not had any new or unusual bruising or bleeding. OBJECTIVE: GENERAL: The patient is a well-developed, obese female who is in no acute distress. VITAL SIGNS: Temperature 98, pulse 68 and regular, respirations 19, blood pressure 139/65, pulse ox imetry 98% on room air. SKIN: No ecchymosis, no petechiae or rashes. HEENT: No mucosal lesions. No scleral icterus. NECK: Supple, no jugular venous distention or thyroid enlargement. CHEST: Clear to auscultation and percussion. No rhonchi, wheezes, rales, or rubs. NODES: No palpable lymphadenopathy in any lymph node-bearing area. HEART: Regular sinus rhythm, no S3, S4, or murmurs. ABDOMEN: Obese, but no obvious masses or ascites. Bowel sounds are active. EXTREMITIES: Good range of motion, no clubbing, edema, or cyanosis. No palpable cords or Homans si gn. NEUROLOGIC: Negative. LABORATORY DATA: The patient's lack prothrombin time on February 01 12.4 seconds, INR 0.92, PTT 26.6 seconds. White count 6500, hemoglobin 10.8, hematocrit 34.2, MCV 91.2, MCH 28.8, MCHC 31.6, RDW 13. 9, and platelet count 196,000. ASSESSMENT: 1. Abdominal pain and possible pelvic mass. CT of abdomen and pelvis does demonstrate a large cysti c lesion within the midline of the pelvis and lower abdomen which measured 18 cm in greatest diamete r. This was adjacent to the right ovary. 2. History of pulmonary embolism and deep vein thrombosis. 3. Lupus anticoagulant. DISCUSSION: This patient has had previous history of deep vein thrombosis and pulmonary embolism an d has been demonstrated to have a positive lupus anticoagulant. The patient has been receiving Apix aban 5 mg twice a day for approximately the past 6 months. The patient is now admitted with abdominal pain and has been found to have a cystic mass in the pelv is. At this time, laparoscopic surgery is anticipated. The patient's last dose of apixaban was at least 72 hours ago. She has been covered with enoxaparin since her admission. As noted by Dr. Cunha, I agree that this patient should have a placement of an IVC filter. This could be removed postoperatively. As noted, this patient has been on apixaban at a therapeutic dose for 6 months. If there are no com plications following surgery, I feel that the patient's dose of apixaban and can be decreased to 2.5 mg twice a day on a chronic basis. Dictated By: CARLOS HAINES MD SR/MARIELA Conf#: [id number] DID#: [id number]
--- NOTE | 2017-02-02 08:52 | PN ---
DATE: 02/02/2017 SUBJECTIVE: The patient denies any chest pain or shortness of breath. Continues to have low-grade vaginal bleeding. PHYSICAL EXAMINATION: VITAL SIGNS: Temperature ____, blood pressure 136/77, O2 sats 97%. CHEST: Clinically clear. HEART: S1, S2 with no definite gallops. EXTREMITIES: There is no edema. Negative Homans. IMPRESSION: 1. Pelvic mass, likely ovarian with abdominal pain. 2. Menorrhagia. 3. Hypercoagulable state with antiphospholipid syndrome, status post bilateral pulmonary emboli. 4. Hypertension. The patient has poor IV access, a PICC line is being placed today, vascular consultation with Dr. Qian torres is pending and placement of removal of IVC filter per vascular surgery. Will discuss with Dr. Dariela pandya regarding the timing of the surgery and we will hold Lovenox starting today. Dictated By: NIKA WEI MD SR/NTS Conf#: [id number] DID#: [id number]
[2017-02-02] MEDS: NEBIVOLOL 5 MG TAB PO SCH (09:16)
--- NOTE | 2017-02-02 10:11 | CONS ---
Date/Time of Note Date/Time of Note DATE: 02/02/17 TIME: 10:11 Assessment/Plan Assessment/Plan Chief Complaint/Hosp Course 51-year-old F w/ h/o RLE DVT and PE in 08/2016 found to have lupus anticoagulant and treated w/ Eliquis now w/ large cystic pelvic mass; Dr Nieves planning surgical resection; anticoagulation held Plan: -Appreciate medical management -Will plan to place IVC filter tomorrow (Thursday) morning at 9am - the indications, risks and benefits of the procedure were d/w pt and she understood and agreed to proceed -NPO after MN Thank you and please call with questions Problems: Consultation Date/Type/Reason Admit Date/Time Jan 29, 2017 at 23:34 Date of Consultation: Feb 02, 2017 Reason for Consultation IVC filter Referring Provider: NIKA WEI MD Hx of Present Illness 51-year-old F w/ h/o RLE DVT and PE in 08/2016 found to have lupus anticoagulant and treated w/ Eliquis now presented w/ severe right-sided abdominal pain, w/ radiation to the back and found to have large pelvic mass on CT scan. She denies any fever or chills, CP, emesis, diarrhea, constipation. She did have associated nausea and some dyspnea on exertion. She was seen by Dr. Nieves and is planned for surgical resection soon. Her anticoagulation was held last night (lovenox) in preparation for surgery. We are consulted for placement of IVC filter. CT images reviewed. HEAD: No history of headaches, focal weakness, or numbness. EYES: No blurry vision or glaucoma. ENT: Noncontributory. NECK: No history of thyroid disease. CHEST: No bronchitis, hay fever, or asthma. History of bilateral pulmonary emboli, diagnosed in August of 2016, on Eliquis. CARDIOVASCULAR: No PND, orthopnea or palpitations. No history of IA or angina. H/o RLE DVT in 08/2016. GASTROINTESTINAL: No constipation, diarrhea or change in bowel habits. Mild nausea. Abd pain. GENITOURINARY: No dysuria, hematuria or kidney stones. MUSCULOSKELETAL: History of meniscus tear, right knee. VASCULAR: History of DVT, right femoral popliteal vein, along with bilateral pulmonary emboli. The patient does have a hypercoagulable state, positive for lupus anticoagulant. Gastrointestinal: blood, constipation, decreased appetite, diarrhea, flatus, nausea, no complaints, other, pain, passing stool, vomiting Past Medical History Irregular menstrual cycle/periods H/o RLE DVT and PE in 08/2016 on Eliquis R meniscal tear at knee Past Surgical History s/p D&C in late August Past Surgical Hx: other () Social History Alcohol Use: rarely Smoking Status: Never smoker Drug Use: none Exam/Review of Systems Vital Signs Vitals Vital Signs Date Time Temp Pulse Resp B/P Pulse Ox O2 Delivery O2 Flow Rate FiO2 02/02/17 08:11 98.3 68 16 136/77 97 01/30/17 00:51 Room Air Intake and Output 02/01/17 02/01/17 02/02/17 15:00 23:00 07:00 Intake Total 355 ml 1200 ml 400 ml Balance 355 ml 1200 ml 400 ml Exam Gen: AAOx3, NAD Neck: supple Heart: Reg Lungs: clear Abd: obese, soft, NT, ND Extr: warm, no cyanosis, no wounds, no edema, weakly palpable DP pulses Results Result Diagram: 02/01/17 0504 02/01/17 0504 Medications Medications Current Medications Morphine Sulfate (morphine) 4 mg Q4H PRN IV PAIN; Start 01/30/17 at 02:30 Ondansetron HCl 4 mg 4 mg Q4H PRN IV NAUSEA AND/OR VOMITING; Start 01/30/17 at 02:30 Dextrose/Sodium Chloride (D5-1/4ns) 1,000 ml @ 75 mls/hr [id number] IV Last administered on 01/31/17 23:16; Admin Dose 75 MLS/HR; Start 01/30/17 at 02:30 Miscellaneous Medication (Bystolic) 5 mg DAILY PO Last administered on 09:16; Admin Dose 5 MG; Start 01/30/17 at 09:00 Enoxaparin Sodium (Lovenox) 120 mg BID SC Last administered on 02/01/17 20:31 ; Admin Dose 120 MG; Start 01/31/17 at 21:00; Status Future Hold POPPY FRANK MD Feb 02, 2017 10:11
[2017-02-02] MEDS: DEXTROSE 5%-0.225% NACL 1,000 ML IV SCH (10:30)
--- NOTE | 2017-02-02 13:44 | RADRPT ---
PROCEDURE: Ultrasound guidance for placement of needle in left upper extremity vein. CLINICAL INDICATION: Venous access. TECHNIQUE: Limited sonography of the left upper extremity was performed. Ultrasound images were recorded and s tored in the patient's medical record. COMPARISON: None. FINDINGS: The ultrasound images demonstrate a patent left upper extremity vein. The PICC line was inserted by the PICC line nurse. IMPRESSION: 1. Ultrasound guidance for a needle placement in a left upper extremity vein. 2. The left upper extremity vein is patent. RPTAT: QQ .Mukund Nolasco MD, MD Date Time Electronically viewed and signed by .Mukund Nolasco MD, MD on 02/02/2017 13:44 .R/
--- NOTE | 2017-02-02 13:44 | RADRPT ---
PROCEDURE: XR Chest. CLINICAL INDICATION: Check PICC line position. TECHNIQUE: Single frontal view. COMPARISON: 02/02/2017. 1307 hours. FINDINGS: There is a left arm PICC line with the tip in the lower superior vena cava. The lungs are clear. The heart size is normal. There is no pleural effusion. There is no pneumothorax. IMPRESSION: 1. Satisfactory position of left arm PICC line. 2. Otherwise normal chest radiograph. RPTAT: QQ .Mukund Nolasco MD, Date Time Electronically viewed and signed by .Mukund Nolasco MD, MD on 02/02/2017 13:44 .R/
--- NOTE | 2017-02-02 13:45 | RADRPT ---
PROCEDURE: XR Chest. CLINICAL INDICATION: Check PICC line position. TECHNIQUE: Single frontal view. COMPARISON: 09/11/2016. FINDINGS: There is a left arm PICC line with the tip in the mid right atrium. The lungs are clear. The heart size is normal. There is no pleural effusion. There is no pneumothorax. IMPRESSION: 1. Left arm PICC line tip in the mid right atrium. This should be retracted approximately 3 cm. 2. Otherwise normal chest radiograph. RPTAT: QQ .Mukund Nolasco MD, MD Date Time Electronically viewed and signed by .Mukund Nolasco MD, MD on 02/02/2017 13:45 .R/
[2017-02-02] MEDS ORDERED: SOD CHLORIDE 0.9% 100 ML ONE (17:09)
[2017-02-02 20:00] VITALS: BP_SYST 135; BP_SYST 165; BP_DIAS 67; BP_DIAS 74; RESP 18; RESP 19
[2017-02-03] VITALS (8 sets, daily range): BP systolic 125–175; BP diastolic 63–84; PULSE 65–73; RESP 16
[2017-02-03 06:02] LABS: INR 0.9; PARTIAL THROMBOPLASTIN TIME 24.6 Sec (25.0-35.0); PROTIME 12.1 Sec (12.2-14.2); PT RATIO 0.9
[2017-02-03 06:06] LABS: CALCIUM 8.8 mg/dl (8.4-10.2); CREATININE 0.85 mg/dl (0.44-1.00)
[2017-02-03 06:16] LABS: ADD SCAN DIFF NO
[2017-02-03 07:52] LABS: BASOPHIL # 0.1 10^3/ul (0.0-0.1); BASOPHILS % 0.8 % (0.0-2.0); EOSINOPHILS # 0.2 10^3/ul (0.0-0.5); EOSINOPHILS % 3.7 % (0.0-7.0); HEMATOCRIT 33.3 % (37.0-47.0); HEMOGLOBIN 10.6 g/dl (12.0-16.0); LYMPHOCYTES # 1.9 10^3/ul (0.8-2.9); LYMPHOCYTES % 31.4 % (15.0-51.0); MEAN CORPUSCULAR HEMOGLOBIN 28.6 pg (29.0-33.0); MEAN CORPUSCULAR HGB CONC 31.8 g/dl (32.0-37.0); MEAN PLATELET VOLUME 10.5 fl (7.4-10.4); MONOCYTE # 0.6 10^3/ul (0.3-0.9); MONOCYTES % 9.9 % (0.0-11.0); NEUTROPHIL # 3.3 10^3/ul (1.6-7.5); PLATELET COUNT 237 10^3/UL (140-415); WHITE BLOOD COUNT 6.1 10^3/ul (4.8-10.8)
[2017-02-03] MEDS ORDERED: LIDOCAINE 1% (MDV) 20 ML INJ ONE (08:14)
[2017-02-03] MEDS ORDERED: IODIXANOL LOCM 100 ML BTL ONE (08:15)
[2017-02-03] MEDS ORDERED: FENTAnyl 50 MCG/ML VIAL ONE (08:32)
[2017-02-03] MEDS ORDERED: MIDAZOLAM 1 MG/ML 2 ML INJ ONE (08:32)
--- NOTE | 2017-02-03 09:31 | OPPN ---
Date/Time of Note Date/Time of Note DATE: 02/03/17 TIME: 09:29 Operative Report Preoperative Diagnosis History RLE DVT, PE, lupus anticoagulant, new large pelvic mass requiring surgery and cessation of anticoagulation Postoperative Diagnosis Same Operation/Procedure Performed IVC venogram, placement IVC filter via R femoral vein access under ultrasound and fluoroscopy Provider: POPPY FRANK MD Anesthesia: other (Local) Estimated blood loss: minimal Specimens None Grafts/Implants Cook Celect IVC filter Complications: None POPPY FRANK MD Feb 03, 2017 09:31
[2017-02-03] MEDS: NEBIVOLOL 5 MG TAB PO SCH (10:00)
[2017-02-03] MEDS: HOLD all METFORMIN and METFORMIN CONTAINING medications for 48 hours post procedure. Chec XX SCH (10:16)
--- NOTE | 2017-02-03 11:35 | OPR ---
DATE OF OPERATION: 02/03/2017 PREOPERATIVE DIAGNOSIS: Right lower extremity DVT with PE diagnosis of lupus anticoagulant, on anticoagulation, now with a large pelvic mass and need for surgery. POSTOPERATIVE DIAGNOSIS: Right lower extremity DVT with PE diagnosis of lupus anticoagulant, on anticoagulation, now with a large pelvic mass and need for surgery. PROCEDURE: 1. Inferior vena cava venogram. 2. Placement of inferior vena cava filter with ultrasound and fluoroscopy. SURGEON: Poppy Florez MD ANESTHESIA: Local. ESTIMATED BLOOD LOSS: Minimal. COMPLICATIONS: None. PREOPERATIVE INDICATIONS: This is a 51-year-old female with a history of right lower extremity DVT with PE, and was diagnosed with lupus anticoagulant and has been treated with anticoagulation since earlier this year. She is now found to have a large pelvic mass that requires surgery. Her anticoagulation has been held in preparation for surgery. She now requires IVC filter for protection against potential future DVTs and PE's given her higher risk for re-thrombosis with surgery, and her hypercoaguable state. The indications, risks and benefits of the procedure were discussed with the patient who understood and agreed to proceed. DESCRIPTION OF PROCEDURE: The patient was properly identified, brought to the angiography suite and placed in the supine position. The patient's right groin was prepped and draped in the usual sterile fashion. Ultrasound evaluation demonstrated that the right common femoral vein and greater saphenous veins were patent without any evidence of clot. Local anesthesia was injected into the skin and subcutaneous tissues overlying the common femoral vein. Ultrasound guidance was used to aid in access of the common femoral vein with a micropuncture needle. With return of venous blood, a micropuncture wire was then advanced into the right iliac venous system under fluoroscopy. A micropuncture sheath was then placed. A 0.035 Bentson wire was then advanced into the inferior vena cava under fluoroscopy. There was noted to be a small area potential narrowing or scarring initially with the wire introduction. However, there were no obstructions. The skin access site was nicked with an 11 blade scalpel to enlarge the skin. A 10-Japanese dilator was used to dilate and the access site and tract. The Cook KAI Squaret femoral sheath was then advanced over the wire. With the sheath and dilator in place at the distal iliac vein, venogram was performed. This demonstrated that there was no obvious thrombosis in the iliac vein or in the inferior vena cava. There was, however, slightly abnormal flow pattern at the area of the proximal common iliac vein and the distal inferior vena cava. This may be likely due to the large cystic pelvic mass that is present causing mass effect. The outline of the large pelvic mass was visible on fluoroscopy. No filling defects were noted. Given these findings, the wire was readvanced and the sheath was advanced to the area of the lowest renal which was on the left side. The left renal vein origin appeared to be coming off the vena cava at the level between L2 and L3. Thus, it was planned to place the top of the filter at top of L3. Once the sheath was in good position, the dilator and wire were removed. The Cook Celect filter was then advanced. Once in proper position, the filter was unsheathed. Once final position was confirmed, the filter was then deployed. It deployed properly and without any angulation in the filter itself. The filter was placed in good position. The sheath was then removed and manual compression was applied for hemostasis. Hemostasis was excellent afterwards. The patient tolerated the procedure well without any immediate complications. She was transferred to recovery in stable condition. Dictated By: POPPY LLOYD/MARIELA Conf#: [id number] DID#: [id number] PRIMO
--- NOTE | 2017-02-03 22:06 | PN ---
Date/Time of Note Date/Time of Note DATE: 02/03/17 TIME: 22:02 Assessment/Plan VTE Prophylaxis VTE Prophylaxis Intervention: LMWH Lines/Catheters IV Catheter Type (from Nrsg): PICC Line Central line still needed: Yes Urinary Cath still in place: No Assessment/Plan Chief Complaint/Hosp Course Pelvic-abdominal mass Problems: Assessment/Plan Below all noted; will precede with bowel prep tomorrow. SURGERY IS SCHEDULED FOR APPROX 2:30 pm Subjective 24 Hr Interval Summary Free Text/Dictation All noted Exam/Review of Systems Vital Signs Vitals Vital Signs Date Time Temp Pulse Resp B/P Pulse Ox O2 Delivery O2 Flow Rate FiO2 02/03/17 12:35 68 135/71 02/03/17 09:50 97.5 16 02/02/17 20:00 96 Intake and Output 02/02/17 02/02/17 02/03/17 15:00 23:00 07:00 Intake Total 1540 ml 300 ml Balance 1540 ml 300 ml Results Result Diagram: 02/03/17 0448 02/03/17 0600 Results 24 hrs Laboratory Tests Test 02/03/17 04:48 02/03/17 06:00 White Blood Count 6.1 Red Blood Count 3.70 L Hemoglobin 10.6 L Hematocrit 33.3 L Mean Corpuscular Volume 90.0 Mean Corpuscular Hemoglobin 28.6 L Mean Corpuscular Hemoglobin Concent 31.8 L Red Cell Distribution Width 14.0 Platelet Count 237 # Mean Platelet Volume 10.5 H Neutrophils % 54.0 Lymphocytes % 31.4 Monocytes % 9.9 Eosinophils % 3.7 Basophils % 0.8 Nucleated Red Blood Cells % 0.0 Neutrophils # 3.3 Lymphocytes # 1.9 Monocytes # 0.6 Eosinophils # 0.2 Basophils # 0.1 Nucleated Red Blood Cells # 0.0 CA 125 Antigen 19.1 Prothrombin Time 12.1 L Prothrombin Time Ratio 0.9 INR International Normalized Ratio 0.90 Activated Partial Thromboplast Time 24.6 L Sodium Level 139 Potassium Level 4.0 Chloride Level 105 Carbon Dioxide Level 28 Anion Gap 10 Blood Urea Nitrogen 9 Creatinine 0.85 Glucose Level 108 Calcium Level 8.8 Magnesium Level 2.0 Medications Medications Current Medications Morphine Sulfate (morphine) 4 mg Q4H PRN IV PAIN; Start 01/30/17 at 02:30 Ondansetron HCl (Zofran Inj) 4 mg Q4H PRN IV NAUSEA AND/OR VOMITING; Start at 02:30 Miscellaneous Medication (Bystolic) 5 mg DAILY PO Last administered on 10:00; Admin Dose 5 MG; Start 01/30/17 at 09:00 Enoxaparin Sodium (Lovenox) 120 mg BID SC Last administered on 02/01/17 20:31 ; Admin Dose 120 MG; Start 01/31/17 at 21:00; Status Future Hold IV Flush (NS 10 ml) 10 ml PRN PRN IV IV PROTOCOL; Start 02/02/17 at 14:30 Miscellaneous Information (* Miscellaneous Pharmacy Order) HOLD all METFORMIN ... ONCE XX Last administered on 02/03/17 10:16; Admin Dose 1 EA; Start at 10:00; Stop 02/05/17 at 09:59 Acetaminophen (Tylenol Tab) 650 mg Q4H PRN PO NON-CARDIAC PAIN LEVEL (1-3); Start 02/03/17 at 10:00 KELLY PAGE MD Feb 03, 2017 22:06
--- NOTE | 2017-02-04 07:26 | RADRPT ---
PROCEDURE: XR Chest. CLINICAL INDICATION: Preop TECHNIQUE: PA and lateral views of the chest were obtained COMPARISON: Chest 09/11/2016 FINDINGS: The heart is within normal limits in size. There is no evidence of pulmonary vascular congestion ac grace lung consolidation pleural effusions and pneumothorax. IMPRESSION: No evidence of acute cardiopulmonary disease. RPTAT:AAJJ Physician Danitza Date Time Electronically viewed and signed by Lexi Rowe Physician on 02/04/2017 07:26 BM/
--- NOTE | 2017-02-04 07:51 | PN ---
DATE: 02/03/2017 SUBJECTIVE: The patient has no significant abdominal pain. Denies any chest pain or shortness of b reath. OBJECTIVE: VITAL SIGNS: Blood pressure is 174/63, pulse 64 per minute, temperature 97.5. HEENT: No pallor, cyanosis. CHEST: Clear. EXTREMITIES: No edema. LABORATORY DATA: WBC count 6.1, hematocrit 33.3, platelet count 237,000. Sodium 139, potassium 4, BUN 9, creatinine 0.85, magnesium 2.0. Urinalysis from 01/29/2017 shows 10 to 25 RBCs, 0 to 2 WBCs, few bacteria. The patient had IVC filter placed today. Dr. Florez's vascular evaluation and recomm endation greatly appreciated. IMPRESSION: 1. Pelvic mass, likely ovarian, with abdominal pain. 2. Menorrhagia. 3. Mild anemia. 4. Hypercoagulable state with antiphospholipid syndrome status post DVT lower extremity and bilater al pulmonary emboli. 5. Hypertension. PLAN: We will obtain a clean catch UA and SCIENTIFIC AIDE. We will discuss with Dr. Nieves regarding laparos copic surgery. We will hold Lovenox for now. Follow recommendations of Dr. Lemus regarding antic oagulation recommendations. Dictated By: NIKA WEI MD SR/NTS Conf#: [id number] DID#: [id number]
[2017-02-04 07:55] VITALS: BP 132/74; RESP 18
--- NOTE | 2017-02-04 08:09 | PN ---
DATE: 02/04/2017 SUBJECTIVE: The patient states she is feeling well. Did have the IVC filter placed yesterday witho ut complications. The patient does not complain of shortness of breath or chest pain. She has not encountered any unu sual bruising or bleeding. OBJECTIVE: GENERAL: The patient is a well-developed, but obese female in no acute distress. VITAL SIGNS: Temperature is 97.5, pulse 68 and regular, respirations 18, blood pressure 135/71, pul se oximetry 96% on room air. SKIN: No ecchymosis, no petechiae or rashes. HEENT: No mucosal lesions. No scleral icterus. NECK: Supple, no jugular venous distention or thyroid enlargement. CHEST: Clear to auscultation and percussion. No rhonchi, wheezes, rales, or rubs. HEART: Regular sinus rhythm. No S3, S4, or murmurs. No rubs. ABDOMEN: Obese without masses or ascites. EXTREMITIES: Good range of motion. No clubbing, no edema or cyanosis. No palpable cords or Homans sign. There is a PICC line in the left upper extremity. NEUROLOGIC: Normal. ASSESSMENT: 1. Abdominal pain with possible pelvic mass. Rule out malignancy. 2. History of pulmonary embolism and deep vein thrombosis. 3. Lupus anticoagulant. PLAN: The patient is apparently scheduled to have a laparoscopic exploration on February 05 . As noted, the patient has had IVC filter placed. Apparently there is a possibility of a right total knee replacement in the next month or 2. The patient is desirous of leaving the vena caval filter in until that procedure has been done. I certainly agree with this if the surgery can be arranged. I have requested a CA-125 as well as an HE4 to further evaluate the patient's pelvic mass. Dictated By: CARLOS HAINES MD, SR/MARIELA Conf#: [id number] DID#: [id number]
--- NOTE | 2017-02-04 08:12 | PN ---
DATE: 02/03/2017 HEMATOLOGY PROGRESS NOTE SUBJECTIVE: The patient is no longer experiencing any abdominal pain. The patient did have a PICC line placed in the left upper extremity on February 02 without difficultie s. OBJECTIVE: GENERAL: The patient is a well-developed, but obese female who is in no acute distress. VITAL SIGNS: Temperature 97.6, pulse 67 per minute and regular, respirations 18, blood pressure 135 /67, pulse oximetry 96% on room air. SKIN: No ecchymosis, no petechiae or rashes. HEENT: No mucosal lesions. No scleral icterus. NECK: Supple, no jugular venous distention or thyroid enlargement. CHEST: Decreased breath sounds throughout, but no rhonchi, wheezes, rales, or rubs. NODES: No pal pable lymphadenopathy. HEART: Regular sinus rhythm, no S3, S4, or murmurs. ABDOMEN: Obese without palpable masses or ascites. There is minimal tenderness in the right lower abdomen and right lower quadrant. EXTREMITIES: No clubbing, edema, or cyanosis. No palpable cords or Homans sign. There is a PICC l ine located in the left upper extremity. LABORATORY DATA: PT 12.1 seconds, INR of 0.90, PTT 24.6 seconds. Sodium 139, potassium 4, BUN 10, creatinine 0.9. ASSESSMENT: 1. Abdominal pain and possible pelvic mass. 2. History of pulmonary embolism and deep vein thrombosis. 3. Lupus anticoagulant. DISCUSSION: The patient is scheduled to undergo laparoscopic exploration, but the final date for pr ocedure has not been established. The patient is scheduled to have a vena caval filter placed today. As previously noted, I feel that a removable filter is preferable. The patient will remain on Lovenox until surgery. Postoperatively, as noted, the patient has alread y been on therapeutic doses of apixaban for 6 months. Following surgery, the patient can then be st arted on chronic apixaban at a dose of 2.5 mg twice a day. Dictated By: CARLOS HAINES MD, SR/NTS Conf#: [id number] DID#: [id number]
[2017-02-04] MEDS: NEBIVOLOL 5 MG TAB PO SCH (08:27)
[2017-02-04] MEDS: HOLD all METFORMIN and METFORMIN CONTAINING medications for 48 hours post procedure. Chec XX SCH (10:00)
--- NOTE | 2017-02-04 12:08 | PN ---
Date/Time of Note Date/Time of Note DATE: 02/04/17 TIME: 12:04 Assessment/Plan VTE Prophylaxis VTE Prophylaxis Intervention: other Lines/Catheters IV Catheter Type (from Nrsg): PICC Line Central line still needed: Yes Urinary Cath still in place: No Assessment/Plan Assessment/Plan A: pelvic mass antiphospholipid syndrome/hx PE/DVT anemia P: surgery planned for tomorrow cont current rx Subjective 24 Hr Interval Summary Free Text/Dictation Covering for Dr. Davis. Pt with pelvic mass, antiphospholipid syndrome/ hx PE/DVT, plan for surgery tomorrow with Dr. Winter. Pt had IVC filter placed. No pelvic pain, abd pain, cp, sob. On menses now. Exam/Review of Systems Vital Signs Vitals Vital Signs Date Time Temp Pulse Resp B/P Pulse Ox O2 Delivery O2 Flow Rate FiO2 02/04/17 07:55 98.5 98 18 132/74 98 Intake and Output 02/03/17 02/03/17 02/04/17 15:00 23:00 07:00 Intake Total 1200 ml 600 ml Output Total 1800 ml 650 ml Balance -600 ml -50 ml Exam gen- NAD, nontoxic lungs- CTA heart- regular. abd- +BS, soft, nontender. ext- tr edema. Results Result Diagram: 02/03/17 0448 02/03/17 0600 Medications Medications Current Medications Morphine Sulfate (morphine) 4 mg Q4H PRN IV PAIN; Start 01/30/17 at 02:30 Ondansetron HCl (Zofran Inj) 4 mg Q4H PRN IV NAUSEA AND/OR VOMITING; Start at 02:30 Miscellaneous Medication (Bystolic) 5 mg DAILY PO Last administered on 08:27; Admin Dose 5 MG; Start 01/30/17 at 09:00 Enoxaparin Sodium (Lovenox) 120 mg BID SC Last administered on 02/01/17 20:31 ; Admin Dose 120 MG; Start 01/31/17 at 21:00; Status Future Hold IV Flush (NS 10 ml) 10 ml PRN PRN IV IV PROTOCOL; Start 02/02/17 at 14:30 Miscellaneous Information (* Miscellaneous Pharmacy Order) HOLD all METFORMIN ... ONCE XX Last administered on 6/20/17at 10:16; Admin Dose 1 EA; Start at 10:00; Stop 02/05/17 at 09:59 Acetaminophen (Tylenol Tab) 650 mg Q4H PRN PO NON-CARDIAC PAIN LEVEL (1-3); Start 02/03/17 at 10:00 HANANE CARIAS MD Feb 04, 2017 12:08
[2017-02-04] MEDS ORDERED: PEG/ELECTROLYTES 4L BTL PO ONE (13:00)
[2017-02-04 19:49] VITALS: BP 144/65; RESP 20
[2017-02-05] VITALS (20 sets, daily range): BP systolic 100–159; BP diastolic 53–88; PULSE 57–83; RESP 13–24
[2017-02-05 06:00] LABS: ADD SCAN DIFF NO
[2017-02-05 06:11] LABS: BASOPHILS % 0.5 % (0.0-2.0); EOSINOPHILS # 0.3 10^3/ul (0.0-0.5); EOSINOPHILS % 3.8 % (0.0-7.0); HEMATOCRIT 33.9 % (37.0-47.0); HEMOGLOBIN 10.6 g/dl (12.0-16.0); LYMPHOCYTES # 2.3 10^3/ul (0.8-2.9); LYMPHOCYTES % 29.2 % (15.0-51.0); MEAN CORPUSCULAR HGB CONC 31.3 g/dl (32.0-37.0); MEAN CORPUSCULAR VOLUME 89.7 fl (82.0-101.0); MEAN PLATELET VOLUME 10.8 fl (7.4-10.4); MONOCYTE # 0.8 10^3/ul (0.3-0.9); MONOCYTES % 10.1 % (0.0-11.0); NEUTROPHIL # 4.4 10^3/ul (1.6-7.5); PLATELET COUNT 178 10^3/UL (140-415); RED BLOOD COUNT 3.78 10^6/ul (4.20-5.40); RED CELL DISTRIBUTION WIDTH 13.8 % (11.5-14.5); WHITE BLOOD COUNT 7.9 10^3/ul (4.8-10.8)
[2017-02-05 06:35] LABS: INR 0.99; PROTIME 13.1 Sec (12.2-14.2)
[2017-02-05 06:42] LABS: ALBUMIN/GLOBULIN RATIO 1.48; BILIRUBIN,INDIRECT 0.9 mg/dl (0-1.1); BILIRUBIN,TOTAL 0.9 mg/dl (0.2-1.3); CREATININE 0.82 mg/dl (0.44-1.00); POTASSIUM 3.9 mmol/L (3.5-5.1); TOTAL PROTEIN 6.7 g/dl (6.1-8.1)
[2017-02-05] MEDS ORDERED: HETASTARCH 6% NACL 500 ML BAG ONE (07:00)
[2017-02-05] MEDS ORDERED: metroNIDAZOLE 500 MG/100 ML NS IVPB ONE (07:00)
[2017-02-05] MEDS ORDERED: SUCCINYLCHOLINE CHLORIDE 100 MG/5 ML SYG IV ONE (07:00)
[2017-02-05] MEDS: NEBIVOLOL 5 MG TAB PO SCH (09:01)
--- NOTE | 2017-02-05 13:00 | PN ---
Date/Time of Note Date/Time of Note DATE: 02/05/17 TIME: 12:57 Assessment/Plan VTE Prophylaxis VTE Prophylaxis Intervention: other Lines/Catheters IV Catheter Type (from Nrsg): PICC Line Central line still needed: Yes Urinary Cath still in place: No Assessment/Plan Assessment/Plan A: pelvic mass antiphospholipid syndrome/PE/DVT anemia P: for surgery today cont current rx Subjective 24 Hr Interval Summary Free Text/Dictation Pt scheduled for surgery this afternoon. No pain, cp, sob, LOPEZ, dizziness or other complaints. Exam/Review of Systems Vital Signs Vitals Vital Signs Date Time Temp Pulse Resp B/P Pulse Ox O2 Delivery O2 Flow Rate FiO2 02/05/17 08:01 98.0 77 19 159/80 98 Intake and Output 02/04/17 02/04/17 02/05/17 15:00 23:00 07:00 Intake Total 500 ml Balance 500 ml Exam gen- NAD, nontoxic lungs- CTA heart- regular abd- +BS, soft, nontender ext- trace edema Results Result Diagram: 02/05/175 02/05/17 0445 Results 24 hrs Laboratory Tests Test 02/05/17 04:45 White Blood Count 7.9 # Red Blood Count 3.78 L Hemoglobin 10.6 L Hematocrit 33.9 L Mean Corpuscular Volume 89.7 Mean Corpuscular Hemoglobin 28.0 L Mean Corpuscular Hemoglobin Concent 31.3 L Red Cell Distribution Width 13.8 Platelet Count 178 # Mean Platelet Volume 10.8 H Neutrophils % 56.0 Lymphocytes % 29.2 Monocytes % 10.1 Eosinophils % 3.8 Basophils % 0.5 Nucleated Red Blood Cells % 0.0 Neutrophils # 4.4 Lymphocytes # 2.3 Monocytes # 0.8 Eosinophils # 0.3 Basophils # 0.0 Nucleated Red Blood Cells # 0.0 Prothrombin Time 13.1 Prothrombin Time Ratio 1.0 INR International Normalized Ratio 0.99 Activated Partial Thromboplast Time 20.0 L Sodium Level 142 Potassium Level 3.9 Chloride Level 104 Carbon Dioxide Level 26 Anion Gap 16 Blood Urea Nitrogen 10 Creatinine 0.82 Glucose Level 94 Calcium Level 9.0 Total Bilirubin 0.9 Direct Bilirubin 0.00 Indirect Bilirubin 0.9 Aspartate Amino Transf (AST/SGOT) 35 Alanine Aminotransferase (ALT/SGPT) 62 Alkaline Phosphatase 87 Total Protein 6.7 Albumin 4.0 Globulin 2.70 Albumin/Globulin Ratio 1.48 Medications Medications Current Medications Morphine Sulfate (morphine) 4 mg Q4H PRN IV PAIN; Start 01/30/17 at 02:30 Ondansetron HCl (Zofran Inj) 4 mg Q4H PRN IV NAUSEA AND/OR VOMITING; Start at 02:30 Miscellaneous Medication (Bystolic) 5 mg DAILY PO Last administered on 09:01; Admin Dose 5 MG; Start 01/30/17 at 09:00 Enoxaparin Sodium (Lovenox) 120 mg BID SC Last administered on 02/01/17 20:31 ; Admin Dose 120 MG; Start 01/31/17 at 21:00; Status Future Hold IV Flush (NS 10 ml) 10 ml PRN PRN IV IV PROTOCOL; Start 02/02/17 at 14:30 Acetaminophen (Tylenol Tab) 650 mg Q4H PRN PO NON-CARDIAC PAIN LEVEL (1-3); Start 02/03/17 at 10:00 HANANE CARIAS MD Feb 05, 2017 13:00
--- NOTE | 2017-02-05 13:32 | PN ---
Date/Time of Note Date/Time of Note DATE: 02/05/17 TIME: 13:30 Assessment/Plan VTE Prophylaxis VTE Prophylaxis Intervention: other (ivc filter) Lines/Catheters IV Catheter Type (from Nrs): PICC Line Central line still needed: Yes Urinary Cath still in place: No Assessment/Plan Assessment/Plan Surgery to be done this afternoon. I will f/u tomorrow on the results of the procedure. Note that IVC filter was placed yesterday. Subjective 24 Hr Interval Summary Free Text/Dictation Pt is stable and alert Exam/Review of Systems Vital Signs Vitals Vital Signs Date Time Temp Pulse Resp B/P Pulse Ox O2 Delivery O2 Flow Rate FiO2 02/05/17 08:01 98.0 77 19 159/80 98 Intake and Output 02/04/17 02/04/17 02/05/17 15:00 23:00 07:00 Intake Total 500 ml Balance 500 ml Exam Pt is not examined since she is about to go to surgery. Results Result Diagram: 02/05/17 0445 02/05/17 0445 Results 24 hrs Laboratory Tests Test 02/05/17 04:45 White Blood Count 7.9 # Red Blood Count 3.78 L Hemoglobin 10.6 L Hematocrit 33.9 L Mean Corpuscular Volume 89.7 Mean Corpuscular Hemoglobin 28.0 L Mean Corpuscular Hemoglobin Concent 31.3 L Red Cell Distribution Width 13.8 Platelet Count 178 # Mean Platelet Volume 10.8 H Neutrophils % 56.0 Lymphocytes % 29.2 Monocytes % 10.1 Eosinophils % 3.8 Basophils % 0.5 Nucleated Red Blood Cells % 0.0 Neutrophils # 4.4 Lymphocytes # 2.3 Monocytes # 0.8 Eosinophils # 0.3 Basophils # 0.0 Nucleated Red Blood Cells # 0.0 Prothrombin Time 13.1 Prothrombin Time Ratio 1.0 INR International Normalized Ratio 0.99 Activated Partial Thromboplast Time 20.0 L Sodium Level 142 Potassium Level 3.9 Chloride Level 104 Carbon Dioxide Level 26 Anion Gap 16 Blood Urea Nitrogen 10 Creatinine 0.82 Glucose Level 94 Calcium Level 9.0 Total Bilirubin 0.9 Direct Bilirubin 0.00 Indirect Bilirubin 0.9 Aspartate Amino Transf (AST/SGOT) 35 Alanine Aminotransferase (ALT/SGPT) 62 Alkaline Phosphatase 87 Total Protein 6.7 Albumin 4.0 Globulin 2.70 Albumin/Globulin Ratio 1.48 Medications Medications Current Medications Morphine Sulfate (morphine) 4 mg Q4H PRN IV PAIN; Start 01/30/17 at 02:30 Ondansetron HCl (Zofran Inj) 4 mg Q4H PRN IV NAUSEA AND/OR VOMITING; Start at 02:30 Miscellaneous Medication (Bystolic) 5 mg DAILY PO Last administered on 09:01; Admin Dose 5 MG; Start 01/30/17 at 09:00 Enoxaparin Sodium (Lovenox) 120 mg BID SC Last administered on 02/01/17 20:31 ; Admin Dose 120 MG; Start 01/31/17 at 21:00; Status Future Hold IV Flush (NS 10 ml) 10 ml PRN PRN IV IV PROTOCOL; Start 02/02/17 at 14:30 Acetaminophen (Tylenol Tab) 650 mg Q4H PRN PO NON-CARDIAC PAIN LEVEL (1-3); Start 02/03/17 at 10:00 MARIA DEL ROSARIO ZAVALETA MD Feb 05, 2017 13:32
[2017-02-05] MEDS ORDERED: FENTAnyl 50 MCG/ML VIAL ONE (15:14)
[2017-02-05] MEDS ORDERED: MIDAZOLAM 1 MG/ML 2 ML INJ ONE (15:14)
[2017-02-05] MEDS ORDERED: morphine SULFATE/PF (10 MG/10 ML) INJ ONE (15:14)
[2017-02-05] MEDS ORDERED: PROPOFOL 100 ML ONE (15:14)
[2017-02-05] MEDS ORDERED: ROCURONIUM 50 MG INJ ONE (15:14)
[2017-02-05] MEDS ORDERED: CEFAZOLIN 1 GM INJ ONE (15:18)
[2017-02-05] MEDS ORDERED: VASOPRESSIN 20 UNITS INJ ONE (16:01)
[2017-02-05] MEDS ORDERED: METHYLENE BLUE 1% 10 ML INJ ONE (16:01)
[2017-02-05] MEDS ORDERED: THROMBIN 5000 UNIT VIAL ONE (16:01)
[2017-02-05] MEDS ORDERED: PHENYLephrine (100 MCG/ML) 5ML SYG ONE ×2 (16:42→17:07)
[2017-02-05] MEDS ORDERED: FAMOTIDINE 20 MG INJ ONE (17:58)
[2017-02-05] MEDS ORDERED: ONDANSETRON 4 MG INJ ONE (18:23)
[2017-02-05] MEDS ORDERED: METOCLOPRAMIDE 10 MG INJ ONE (18:23)
[2017-02-05] MEDS ORDERED: KETOROLAC 30 MG INJ ONE (18:23)
[2017-02-05] MEDS ORDERED: DEXAMETHASONE 4 MG/ML 1 ML INJ ONE (18:23)
[2017-02-05] MEDS ORDERED: ACETAMINOPHEN 1000MG/100ML IV 100 ML ONE (18:23)
[2017-02-05] MEDS ORDERED: DIPHENHYDRAMINE 50 MG INJ IV PRN ×2 (20:00)
[2017-02-05] MEDS ORDERED: morphine 4 MG/ML VIAL IV PRN (20:00)
[2017-02-05] MEDS ORDERED: ALBUMIN HUMAN 5% 250 ML IV PRN (20:00)
[2017-02-05] MEDS ORDERED: NALBUPHINE HCL (10 MG/1 ML) INJ IV PRN (20:00)
[2017-02-05] MEDS ORDERED: hydrALAzine 20 MG INJ IV PRN (20:00)
[2017-02-05] MEDS ORDERED: morphine 2 MG INJ IV PRN ×2 (20:00→21:30)
[2017-02-05] MEDS ORDERED: EPHEDrine SULFATE 50 MG/5 ML SYG IV PRN (20:00)
[2017-02-05] MEDS ORDERED: ONDANSETRON 4 MG INJ IV PRN (20:00)
[2017-02-05] MEDS ORDERED: METOCLOPRAMIDE 10 MG INJ IV PRN (20:00)
[2017-02-05] MEDS ORDERED: LABETALOL HCL 20MG INJ IV PRN (20:00)
[2017-02-05] MEDS ORDERED: NALOXONE (0.4 MG/ML) INJ IV PRN (20:00)
[2017-02-05] MEDS ORDERED: MEPERIDINE 25 MG INJ IV PRN (20:00)
[2017-02-05] MEDS ORDERED: TRIMETHOBENZAMIDE 100 MG/ML VIAL IM PRN (20:00)
[2017-02-05] MEDS ORDERED: HYDROmorphONE 1 MG/ML SYG IV PRN ×2 (20:00)
[2017-02-05] MEDS ORDERED: ROPIVACAINE 0.5 % 30 ML VIAL ONE (20:13)
[2017-02-05] MEDS ORDERED: NEOSTIGMINE 3 MG/3 ML SYRINGE ONE (20:50)
[2017-02-05] MEDS ORDERED: GLYCOPYRROLATE 0.4 MG INJ ONE (20:50)
[2017-02-05] MEDS ORDERED: NALOXONE (0.4 MG/ML) INJ ONE (21:11)
[2017-02-05] MEDS ORDERED: HYDROCODONE/APAP (5/325) TAB PO PRN (21:30)
[2017-02-05 21:58] LABS: ADD SCAN DIFF NO
[2017-02-05 22:00] LABS: BASOPHILS % 0.2 % (0.0-2.0); EOSINOPHILS # 0.1 10^3/ul (0.0-0.5); EOSINOPHILS % 0.5 % (0.0-7.0); HEMATOCRIT 29.5 % (37.0-47.0); HEMOGLOBIN 9.5 g/dl (12.0-16.0); LYMPHOCYTES # 1.2 10^3/ul (0.8-2.9); LYMPHOCYTES % 11.2 % (15.0-51.0); MEAN CORPUSCULAR HEMOGLOBIN 29.1 pg (29.0-33.0); MEAN CORPUSCULAR HGB CONC 32.2 g/dl (32.0-37.0); MEAN CORPUSCULAR VOLUME 90.5 fl (82.0-101.0); MEAN PLATELET VOLUME 9.7 fl (7.4-10.4); MONOCYTE # 0.4 10^3/ul (0.3-0.9); MONOCYTES % 3.5 % (0.0-11.0); PLATELET COUNT 196 10^3/UL (140-415); RED BLOOD COUNT 3.26 10^6/ul (4.20-5.40); RED CELL DISTRIBUTION WIDTH 13.5 % (11.5-14.5); WHITE BLOOD COUNT 10.7 10^3/ul (4.8-10.8)
[2017-02-05] MEDS: FAMOTIDINE 20 MG INJ IV SCH ×2 (22:00→23:37)
[2017-02-05 22:19] LABS: CALCIUM 8.3 mg/dl (8.4-10.2); CREATININE 0.95 mg/dl (0.44-1.00); POTASSIUM 4.4 mmol/L (3.5-5.1)
[2017-02-05] MEDS: CEFAZOLIN 1 GM in SOD CHLORIDE 0.9% 100 ML IVPB SCH (22:30)
[2017-02-05] MEDS: ONDANSETRON 4 MG INJ IV PRN (23:16)
[2017-02-05] MEDS: POTASSIUM CHLORIDE 20 MEQ in LACTATED RINGER'S 1,000 ML IV SCH (23:17)
[2017-02-06] VITALS: BP 122/56; PULSE 70
[2017-02-06] MEDS: CEFAZOLIN 1 GM in SOD CHLORIDE 0.9% 100 ML IVPB SCH ×2 (00:24→06:55)
[2017-02-06 00:30] VITALS: BP 115/58; PULSE 62
[2017-02-06 01:00] VITALS: BP 114/56; PULSE 65
[2017-02-06 02:00] VITALS: BP 120/54; PULSE 67; RESP 17
[2017-02-06] MEDS: ONDANSETRON 4 MG INJ IV PRN ×2 (05:05→09:12)
[2017-02-06 05:46] LABS: ADD SCAN DIFF NO
[2017-02-06 05:51] LABS: BASOPHILS % 0.1 % (0.0-2.0); HEMATOCRIT 29.9 % (37.0-47.0); HEMOGLOBIN 9.2 g/dl (12.0-16.0); LYMPHOCYTES # 0.7 10^3/ul (0.8-2.9); LYMPHOCYTES % 7.2 % (15.0-51.0); MEAN CORPUSCULAR HGB CONC 30.8 g/dl (32.0-37.0); MEAN CORPUSCULAR VOLUME 91.2 fl (82.0-101.0); MEAN PLATELET VOLUME 9.9 fl (7.4-10.4); MONOCYTE # 0.5 10^3/ul (0.3-0.9); MONOCYTES % 5.3 % (0.0-11.0); NEUTROPHIL # 8.2 10^3/ul (1.6-7.5); NEUTROPHILS % 86.7 % (39.0-77.0); PLATELET COUNT 205 10^3/UL (140-415); RED BLOOD COUNT 3.28 10^6/ul (4.20-5.40); RED CELL DISTRIBUTION WIDTH 13.6 % (11.5-14.5); WHITE BLOOD COUNT 9.5 10^3/ul (4.8-10.8)
[2017-02-06 06:15] LABS: INR 0.96; PROTIME 12.8 Sec (12.2-14.2)
[2017-02-06 06:50] LABS: ALBUMIN 3.6 g/dl (3.3-4.9); ALBUMIN/GLOBULIN RATIO 1.63; BILIRUBIN,INDIRECT 0.3 mg/dl (0-1.1); BILIRUBIN,TOTAL 0.3 mg/dl (0.2-1.3); CALCIUM 8.2 mg/dl (8.4-10.2); CREATININE 0.96 mg/dl (0.44-1.00); POTASSIUM 5.5 mmol/L (3.5-5.1); TOTAL PROTEIN 5.8 g/dl (6.1-8.1)
[2017-02-06 07:42] VITALS: BP 119/56; RESP 19
[2017-02-06] MEDS: POTASSIUM CHLORIDE 20 MEQ in LACTATED RINGER'S 1,000 ML IV SCH ×2 (08:12→11:58)
[2017-02-06] MEDS: FAMOTIDINE 20 MG INJ IV SCH ×2 (08:14→21:10)
[2017-02-06] MEDS: NEBIVOLOL 5 MG TAB PO SCH (08:15)
--- NOTE | 2017-02-06 09:51 | PN ---
Date/Time of Note Date/Time of Note DATE: 02/06/17 TIME: 09:49 Assessment/Plan VTE Prophylaxis VTE Prophylaxis Intervention: other (IVC filter) Lines/Catheters [facility] Saline Lock Urinary Cath still in place: Yes Reason Cath still needed: other (indicate) (surgery) Assessment/Plan Assessment/Plan Surgical reports and pathology are pending from last evening. No new suggestions. She is recovering from the procedure appropriately and without unusual issues. Subjective 24 Hr Interval Summary Free Text/Dictation Pt had surgery yesterday and is awake and alert presently. No unusual problems. Sore at surgical site. Exam/Review of Systems Vital Signs Vitals Vital Signs Date Time Temp Pulse Resp B/P Pulse Ox O2 Delivery O2 Flow Rate FiO2 02/06/17 07:42 98.0 61 19 119/56 99 02/06/17 02:00 Mask 3.0 Intake and Output 02/05/17 02/05/17 02/06/17 15:00 23:00 07:00 Intake Total 2000 ml 1000 ml Output Total 900 ml 1100 ml Balance 1100 ml -100 ml Exam Awake and alert but abdomen not fully examined due to recent surgery. Results Result Diagram: 02/06/17 0445 02/06/17 0440 Results 24 hrs Laboratory Tests Test 02/05/17 21:50 02/06/17 04:40 02/06/17 04:45 White Blood Count 10.7 # 9.5 Red Blood Count 3.26 L 3.28 L Hemoglobin 9.5 L 9.2 L Hematocrit 29.5 L 29.9 L Mean Corpuscular Volume 90.5 91.2 Mean Corpuscular Hemoglobin 29.1 28.0 L Mean Corpuscular Hemoglobin Concent 32.2 30.8 L Red Cell Distribution Width 13.5 13.6 Platelet Count 196 205 Mean Platelet Volume 9.7 9.9 Neutrophils % 84.0 H 86.7 H Lymphocytes % 11.2 L 7.2 L Monocytes % 3.5 5.3 Eosinophils % 0.5 0.0 Basophils % 0.2 0.1 Nucleated Red Blood Cells % 0.0 0.0 Neutrophils # 9.0 H 8.2 H Lymphocytes # 1.2 0.7 L Monocytes # 0.4 0.5 Eosinophils # 0.1 0.0 Basophils # 0.0 0.0 Nucleated Red Blood Cells # 0.0 0.0 Sodium Level 136 136 Potassium Level 4.4 5.5 H Chloride Level 105 104 Carbon Dioxide Level 28 29 Anion Gap 7 #L 9 Blood Urea Nitrogen 9 9 Creatinine 0.95 0.96 Glucose Level 134 # 129 Calcium Level 8.3 L 8.2 L Prothrombin Time 12.8 Prothrombin Time Ratio 1.0 INR International Normalized Ratio 0.96 Total Bilirubin 0.3 Direct Bilirubin 0.00 Indirect Bilirubin 0.3 Aspartate Amino Transf (AST/SGOT) 35 Alanine Aminotransferase (ALT/SGPT) 53 Alkaline Phosphatase 68 Total Protein 5.8 L Albumin 3.6 Globulin 2.20 Albumin/Globulin Ratio 1.63 Medications Medications Current Medications Morphine Sulfate (morphine) 4 mg Q4H PRN IV PAIN; Start 01/30/17 at 02:30 Ondansetron HCl (Zofran Inj) 4 mg Q4H PRN IV NAUSEA AND/OR VOMITING Last administered on 02/06/17 09:12; Admin Dose 4 MG; Start 01/30/17 at 02:30 Miscellaneous Medication (Bystolic) 5 mg DAILY PO Last administered on 08:15; Admin Dose 5 MG; Start 01/30/17 at 09:00 Enoxaparin Sodium (Lovenox) 120 mg BID SC Last administered on 02/01/17 20:31 ; Admin Dose 120 MG; Start 01/31/17 at 21:00; Status Future Hold IV Flush (NS 10 ml) 10 ml PRN PRN IV IV PROTOCOL; Start 02/02/17 at 14:30 Acetaminophen (Tylenol Tab) 650 mg Q4H PRN PO NON-CARDIAC PAIN LEVEL (1-3); Start 02/03/17 at 10:00 Hydromorphone HCl (Dilaudid) 0.2 mg Q2H PRN IV PAIN LEVEL 1-5; Start 02/05/17 at 20:00; Stop 02/06/17 at 16:30 Hydromorphone HCl (Dilaudid) 0.4 mg Q2H PRN IV PAIN LEVEL 6-10; Start 02/05/17 at 20:00; Stop 02/06/17 at 16:30 Morphine Sulfate (morphine) 2 mg Q2H PRN IV PAIN LEVEL 1-5; Start 02/05/17 at 20:00; Stop 02/06/17 at 16:30 Morphine Sulfate (morphine) 4 mg Q2H PRN IV PAIN LEVEL 6-10; Start 02/05/17 at 20:00; Stop 02/06/17 at 16:30 Diphenhydramine HCl (Benadryl) 25 mg Q4H PRN IV PRURITUS Last administered on 23:16; Admin Dose 25 MG; Start 02/05/17 at 20:00; Stop 02/06/17 at 16: 30 Nalbuphine HCl (Nubain) 10 mg Q4H PRN IV PRURITUS; Start 02/05/17 at 20:00; Stop 02/06/17 at 16:30 Ondansetron HCl (Zofran Inj) 4 mg Q6H PRN IV NAUSEA AND/OR VOMITING; Start at 20:00; Stop 02/06/17 at 16:30 Trimethobenzamide HCl (Tigan) 200 mg Q6H PRN IM NAUSEA AND/OR VOMITING; Start 02/05/17 at 20:00; Stop 02/06/17 at 16:30 Naloxone HCl (Narcan) 0.2 mg Q2M PRN IV FOR RESP RATE 8 OR LESS; Start at 20:00; Stop 02/06/17 at 16:30 Morphine Sulfate (morphine) 2 mg Q2H PRN IV PAIN LEVEL 6-10; Start 02/05/17 at 21:30 Acetaminophen/ Hydrocodone Bitart ([place] (5/325)) 1 tab Q6H PRN PO PAIN LEVEL 6 -10; Start 02/05/17 at 21:30 Famotidine 20 mg 20 mg Q12 IV Last administered on 02/06/17 08:14; Admin Dose 20 MG; Start 02/05/17 at 22:00 Potassium Chloride 20 meq/ Lactated Ringer's 1,010 ml @ 100 mls/hr Q10H6M IV Last administered on 02/05/17 23:17; Admin Dose 100 MLS/HR; Start 02/05/17 at 22:30 Cefazolin Sodium (Ancef 1 Gm/50 ml (Pmx)) 50 ml @ 100 mls/hr Q8 IVPB ; Start at 14:00 MARIA DEL ROSARIO ZAVALETA MD Feb 06, 2017 09:51
--- NOTE | 2017-02-06 10:10 | OPPN ---
Date/Time of Note Date/Time of Note DATE: 02/06/17 TIME: 10:09 Post-Anesthesia Notes Post-Anesthesia Note Last documented vital signs Vital Signs Date Time Temp Pulse Resp B/P Pulse Ox O2 Delivery O2 Flow Rate FiO2 02/06/17 09:55 Simple Mask 3.0 02/06/17 07:42 98.0 61 19 119/56 99 Activity: WNL Respiratory function: WNL Cardiovascular function: WNL Mental status: Baseline Pain reasonably controlled: Yes Hydration appropriate: Yes Nausea/Vomiting absent: Yes ALLYSON HILARIO MD Feb 06, 2017 10:10
--- NOTE | 2017-02-06 10:11 | RADRPT ---
Vent Rate: 72 bpm RR Interval: 0 msec OR Interval: 188 msec QRS Duration: 90 msec QT Interval: 422 msec QTC Interval: 462 msec P-R-T [place]: 54 - 44 - 75 degrees Normal sinus rhythm ST amp; T wave abnormality, consider anterior ischemia Prolonged QT Abnormal ECG Electronically Signed By: Bertrand Tejeda [id number]
[2017-02-06] MEDS: CEFAZOLIN 1 GM/50 ML (PMX) 50 ML IVPB SCH ×2 (14:00→21:09)
--- NOTE | 2017-02-06 14:41 | PN ---
Date/Time of Note Date/Time of Note DATE: 02/06/17 TIME: 14:37 Assessment/Plan VTE Prophylaxis VTE Prophylaxis Intervention: SCD's, other Lines/Catheters IV Catheter Type (from Nrsg): PICC Line Central line still needed: Yes Urinary Cath still in place: Yes Reason Cath still needed: other (indicate) Assessment/Plan Assessment/Plan A: pelvic mass antiphospholipid syndrome/hx PE/DVT hyperkalemia anemia P: d/c kcl in ivf cont other rx await path results monitor labs Subjective 24 Hr Interval Summary Free Text/Dictation Pt s/p surgery yesterday. Pain reasonably controlled. No cp, sob. Exam/Review of Systems Vital Signs Vitals Vital Signs Date Time Temp Pulse Resp B/P Pulse Ox O2 Delivery O2 Flow Rate FiO2 02/06/17 09:55 Simple Mask 3.0 02/06/17 07:42 98.0 61 19 119/56 99 Intake and Output 02/05/17 02/05/17 02/06/17 15:00 23:00 07:00 Intake Total 2000 ml 1000 ml Output Total 900 ml 1100 ml Balance 1100 ml -100 ml Exam gen- nad, nontoxic lungs- CTA anteriorly heart- regular abd- hypoactive BS, soft ext- trace edema Results Result Diagram: 02/06/17 0445 02/06/17 0440 Results 24 hrs Laboratory Tests Test 02/05/17 21:50 02/06/17 04:40 02/06/17 04:45 White Blood Count 10.7 # 9.5 Red Blood Count 3.26 L 3.28 L Hemoglobin 9.5 L 9.2 L Hematocrit 29.5 L 29.9 L Mean Corpuscular Volume 90.5 91.2 Mean Corpuscular Hemoglobin 29.1 28.0 L Mean Corpuscular Hemoglobin Concent 32.2 30.8 L Red Cell Distribution Width 13.5 13.6 Platelet Count 196 205 Mean Platelet Volume 9.7 9.9 Neutrophils % 84.0 H 86.7 H Lymphocytes % 11.2 L 7.2 L Monocytes % 3.5 5.3 Eosinophils % 0.5 0.0 Basophils % 0.2 0.1 Nucleated Red Blood Cells % 0.0 0.0 Neutrophils # 9.0 H 8.2 H Lymphocytes # 1.2 0.7 L Monocytes # 0.4 0.5 Eosinophils # 0.1 0.0 Basophils # 0.0 0.0 Nucleated Red Blood Cells # 0.0 0.0 Sodium Level 136 136 Potassium Level 4.4 5.5 H Chloride Level 105 104 Carbon Dioxide Level 28 29 Anion Gap 7 #L 9 Blood Urea Nitrogen 9 9 Creatinine 0.95 0.96 Glucose Level 134 # 129 Calcium Level 8.3 L 8.2 L Prothrombin Time 12.8 Prothrombin Time Ratio 1.0 INR International Normalized Ratio 0.96 Total Bilirubin 0.3 Direct Bilirubin 0.00 Indirect Bilirubin 0.3 Aspartate Amino Transf (AST/SGOT) 35 Alanine Aminotransferase (ALT/SGPT) 53 Alkaline Phosphatase 68 Total Protein 5.8 L Albumin 3.6 Globulin 2.20 Albumin/Globulin Ratio 1.63 Medications Medications Current Medications Morphine Sulfate (morphine) 4 mg Q4H PRN IV PAIN; Start 01/30/17 at 02:30 Ondansetron HCl (Zofran Inj) 4 mg Q4H PRN IV NAUSEA AND/OR VOMITING Last administered on 02/06/17 09:12; Admin Dose 4 MG; Start 01/30/17 at 02:30 Miscellaneous Medication (Bystolic) 5 mg DAILY PO Last administered on 08:15; Admin Dose 5 MG; Start 01/30/17 at 09:00 Enoxaparin Sodium (Lovenox) 120 mg BID SC Last administered on 02/01/17 20:31 ; Admin Dose 120 MG; Start 01/31/17 at 21:00; Status Future Hold IV Flush (NS 10 ml) 10 ml PRN PRN IV IV PROTOCOL; Start 02/02/17 at 14:30 Acetaminophen (Tylenol Tab) 650 mg Q4H PRN PO NON-CARDIAC PAIN LEVEL (1-3); Start 02/03/17 at 10:00 Hydromorphone HCl (Dilaudid) 0.2 mg Q2H PRN IV PAIN LEVEL 1-5; Start 02/05/17 at 20:00; Stop 02/06/17 at 16:30 Hydromorphone HCl (Dilaudid) 0.4 mg Q2H PRN IV PAIN LEVEL 6-10; Start 02/05/17 at 20:00; Stop 02/06/17 at 16:30 Morphine Sulfate (morphine) 2 mg Q2H PRN IV PAIN LEVEL 1-5; Start 02/05/17 at 20:00; Stop 02/06/17 at 16:30 Morphine Sulfate (morphine) 4 mg Q2H PRN IV PAIN LEVEL 6-10; Start 02/05/17 at 20:00; Stop 02/06/17 at 16:30 Diphenhydramine HCl (Benadryl) 25 mg Q4H PRN IV PRURITUS Last administered on 23:16; Admin Dose 25 MG; Start 02/05/17 at 20:00; Stop 02/06/17 at 16: 30 Nalbuphine HCl (Nubain) 10 mg Q4H PRN IV PRURITUS; Start 02/05/17 at 20:00; Stop 02/06/17 at 16:30 Ondansetron HCl (Zofran Inj) 4 mg Q6H PRN IV NAUSEA AND/OR VOMITING; Start at 20:00; Stop 02/06/17 at 16:30 Trimethobenzamide HCl (Tigan) 200 mg Q6H PRN IM NAUSEA AND/OR VOMITING; Start 02/05/17 at 20:00; Stop 02/06/17 at 16:30 Naloxone HCl (Narcan) 0.2 mg Q2M PRN IV FOR RESP RATE 8 OR LESS; Start at 20:00; Stop 02/06/17 at 16:30 Morphine Sulfate (morphine) 2 mg Q2H PRN IV PAIN LEVEL 6-10; Start 02/05/17 at 21:30 Acetaminophen/ Hydrocodone Bitart ([place] (5/325)) 1 tab Q6H PRN PO PAIN LEVEL 6 -10; Start 02/05/17 at 21:30 Famotidine 20 mg 20 mg Q12 IV Last administered on 02/06/17 08:14; Admin Dose 20 MG; Start 02/05/17 at 22:00 Potassium Chloride 20 meq/ Lactated Ringer's 1,010 ml @ 100 mls/hr Q10H6M IV Last administered on 02/06/17 11:58; Admin Dose 100 MLS/HR; Start 02/05/17 at 22:30 Cefazolin Sodium (Ancef 1 Gm/50 ml (Pmx)) 50 ml @ 100 mls/hr Q8 IVPB Last administered on 02/06/17 14:00; Admin Dose 100 MLS/HR; Start 02/06/17 at 14:00 HANANE CARIAS MD Feb 06, 2017 14:41
[2017-02-06] MEDS: LACTATED RINGER'S 1,000 ML IV SCH (15:03)
[2017-02-06] MEDS ORDERED: DIPHENHYDRAMINE 50 MG INJ IV PRN (21:00)
[2017-02-06 21:45] VITALS: BP 103/53; RESP 20
--- NOTE | 2017-02-06 23:10 | PN ---
Date/Time of Note Date/Time of Note DATE: 02/06/17 TIME: 23:07 Assessment/Plan VTE Prophylaxis VTE Prophylaxis Intervention: LMWH Lines/Catheters IV Catheter Type (from Nrsg): PICC Line Central line still needed: Yes Urinary Cath still in place: Yes Reason Cath still needed: urinary retention Assessment/Plan Chief Complaint/Hosp Course Pelvic-abdominal mass Problems: Assessment/Plan A- doing well P- adv diet and mobilize Subjective 24 Hr Interval Summary Free Text/Dictation Minimal pain and + flatus . Tolerating liq. Exam/Review of Systems Vital Signs Vitals Vital Signs Date Time Temp Pulse Resp B/P Pulse Ox O2 Delivery O2 Flow Rate FiO2 02/06/17 21:45 98.4 66 20 103/53 100 02/06/17 09:55 Simple Mask 3.0 Intake and Output 02/05/17 02/05/17 02/06/17 15:00 23:00 07:00 Intake Total 2000 ml 1000 ml Output Total 900 ml 1100 ml Balance 1100 ml -100 ml Exam Resp- clar CVS- nsr Abd- soft NT Ext nt no edema Results Result Diagram: 02/06/17 0445 02/06/17 0440 Results 24 hrs Laboratory Tests Test 02/06/17 04:40 02/06/17 04:45 Prothrombin Time 12.8 Prothrombin Time Ratio 1.0 INR International Normalized Ratio 0.96 Sodium Level 136 Potassium Level 5.5 H Chloride Level 104 Carbon Dioxide Level 29 Anion Gap 9 Blood Urea Nitrogen 9 Creatinine 0.96 Glucose Level 129 Calcium Level 8.2 L Total Bilirubin 0.3 Direct Bilirubin 0.00 Indirect Bilirubin 0.3 Aspartate Amino Transf (AST/SGOT) 35 Alanine Aminotransferase (ALT/SGPT) 53 Alkaline Phosphatase 68 Total Protein 5.8 L Albumin 3.6 Globulin 2.20 Albumin/Globulin Ratio 1.63 White Blood Count 9.5 Red Blood Count 3.28 L Hemoglobin 9.2 L Hematocrit 29.9 L Mean Corpuscular Volume 91.2 Mean Corpuscular Hemoglobin 28.0 L Mean Corpuscular Hemoglobin Concent 30.8 L Red Cell Distribution Width 13.6 Platelet Count 205 Mean Platelet Volume 9.9 Neutrophils % 86.7 H Lymphocytes % 7.2 L Monocytes % 5.3 Eosinophils % 0.0 Basophils % 0.1 Nucleated Red Blood Cells % 0.0 Neutrophils # 8.2 H Lymphocytes # 0.7 L Monocytes # 0.5 Eosinophils # 0.0 Basophils # 0.0 Nucleated Red Blood Cells # 0.0 Medications Medications Current Medications Morphine Sulfate (morphine) 4 mg Q4H PRN IV PAIN; Start 01/30/17 at 02:30 Ondansetron HCl (Zofran Inj) 4 mg Q4H PRN IV NAUSEA AND/OR VOMITING Last administered on 02/06/17 09:12; Admin Dose 4 MG; Start 01/30/17 at 02:30 Miscellaneous Medication (Bystolic) 5 mg DAILY PO Last administered on 08:15; Admin Dose 5 MG; Start 01/30/17 at 09:00 Enoxaparin Sodium (Lovenox) 120 mg BID SC Last administered on 02/01/17 20:31 ; Admin Dose 120 MG; Start 01/31/17 at 21:00; Status Future Hold IV Flush (NS 10 ml) 10 ml PRN PRN IV IV PROTOCOL; Start 02/02/17 at 14:30 Acetaminophen (Tylenol Tab) 650 mg Q4H PRN PO NON-CARDIAC PAIN LEVEL (1-3); Start 02/03/17 at 10:00 Morphine Sulfate (morphine) 2 mg Q2H PRN IV PAIN LEVEL 6-10; Start 02/05/17 at 21:30 Acetaminophen/ Hydrocodone Bitart ([place] (5/325)) 1 tab Q6H PRN PO PAIN LEVEL 6 -10; Start 02/05/17 at 21:30 Famotidine 20 mg 20 mg Q12 IV Last administered on 02/06/17 21:10; Admin Dose 20 MG; Start 02/05/17 at 22:00 Cefazolin Sodium 50 ml @ 100 mls/hr Q8 IVPB Last administered on 02/06/17 21: 09; Admin Dose 100 MLS/HR; Start 02/06/17 at 14:00 Lactated Ringer's (Lr) 1,000 ml @ 100 mls/hr Q10H IV Last administered on 02/06 15:03; Admin Dose 100 MLS/HR; Start 02/06/17 at 15:00 Diphenhydramine HCl (Benadryl) 25 mg Q6H PRN IV ITCHING; Start 02/06/17 at 21: 00 KELLY PAGE MD Feb 06, 2017:10
[2017-02-07] MEDS: LACTATED RINGER'S 1,000 ML IV SCH ×3 (01:15→17:55)
[2017-02-07] MEDS: CEFAZOLIN 1 GM/50 ML (PMX) 50 ML IVPB SCH ×3 (05:25→21:05)
[2017-02-07] MEDS: ACETAMINOPHEN 325 MG TAB PO PRN ×3 (05:25→15:20)
[2017-02-07 05:45] LABS: CREATININE 0.86 mg/dl (0.44-1.00)
[2017-02-07 06:29] LABS: ADD SCAN DIFF NO
[2017-02-07 06:44] LABS: BASOPHILS % 0.3 % (0.0-2.0); EOSINOPHILS # 0.1 10^3/ul (0.0-0.5); HEMATOCRIT 25.7 % (37.0-47.0); HEMOGLOBIN 7.8 g/dl (12.0-16.0); LYMPHOCYTES # 1.7 10^3/ul (0.8-2.9); LYMPHOCYTES % 24.4 % (15.0-51.0); MEAN CORPUSCULAR HEMOGLOBIN 28.4 pg (29.0-33.0); MEAN CORPUSCULAR HGB CONC 30.4 g/dl (32.0-37.0); MEAN CORPUSCULAR VOLUME 93.5 fl (82.0-101.0); MEAN PLATELET VOLUME 10.1 fl (7.4-10.4); MONOCYTE # 0.7 10^3/ul (0.3-0.9); MONOCYTES % 9.7 % (0.0-11.0); NEUTROPHIL # 4.4 10^3/ul (1.6-7.5); NEUTROPHILS % 63.2 % (39.0-77.0); PLATELET COUNT 181 10^3/UL (140-415); RED BLOOD COUNT 2.75 10^6/ul (4.20-5.40); RED CELL DISTRIBUTION WIDTH 13.6 % (11.5-14.5)
[2017-02-07 08:02] VITALS: BP 123/58; RESP 16
[2017-02-07] MEDS: FAMOTIDINE 20 MG INJ IV SCH ×2 (08:42→20:55)
[2017-02-07] MEDS: NEBIVOLOL 5 MG TAB PO SCH (08:44)
--- NOTE | 2017-02-07 12:56 | PN ---
Date/Time of Note Date/Time of Note DATE: 02/07/17 TIME: 12:46 Assessment/Plan VTE Prophylaxis VTE Prophylaxis Intervention: SCD's Lines/Catheters IV Catheter Type (from Nrsg): PICC Line Central line still needed: Yes Urinary Cath still in place: No Assessment/Plan Chief Complaint/Hosp Course Pelvic-abdominal mass Problems: Assessment/Plan A- doing well other than decline in h/h and extremity edema P- pt indicates doppler done; will decrease IVF and repeat h/h 6pm. If h/h not up will transfuse. Subjective 24 Hr Interval Summary Free Text/Dictation Minimal pain, + flatus, jacob full liq and OOB; but left arm edema not present when seen late yesterday. Exam/Review of Systems Vital Signs Vitals Vital Signs Date Time Temp Pulse Resp B/P Pulse Ox O2 Delivery O2 Flow Rate FiO2 02/07/17 08:02 98.6 71 16 123/58 100 02/06/17 21:00 Nasal Cannula 2.0 Intake and Output 02/06/17 02/06/17 02/07/17 15:00 23:00 07:00 Intake Total 860 ml 1390 ml 2104 ml Output Total 900 ml 1500 ml Balance 860 ml 490 ml 604 ml Exam Resp- clear CVS NSR Abd- soft NT Ext- nt no edema other than LUQ extremity. Results Result Diagram: 02/07/17 0440 02/07/17 0440 Results 24 hrs Laboratory Tests Test 02/07/17 04:40 White Blood Count 7.0 # Red Blood Count 2.75 L Hemoglobin 7.8 L Hematocrit 25.7 L Mean Corpuscular Volume 93.5 Mean Corpuscular Hemoglobin 28.4 L Mean Corpuscular Hemoglobin Concent 30.4 L Red Cell Distribution Width 13.6 Platelet Count 181 Mean Platelet Volume 10.1 Neutrophils % 63.2 Lymphocytes % 24.4 Monocytes % 9.7 Eosinophils % 2.0 Basophils % 0.3 Nucleated Red Blood Cells % 0.0 Neutrophils # 4.4 Lymphocytes # 1.7 Monocytes # 0.7 Eosinophils # 0.1 Basophils # 0.0 Nucleated Red Blood Cells # 0.0 Sodium Level 138 Potassium Level 4.0 Chloride Level 103 Carbon Dioxide Level 32 H Anion Gap 7 L Blood Urea Nitrogen 8 Creatinine 0.86 Glucose Level 93 Calcium Level 8.0 L Medications Medications Current Medications Morphine Sulfate (morphine) 4 mg Q4H PRN IV PAIN; Start 01/30/17 at 02:30 Ondansetron HCl (Zofran Inj) 4 mg Q4H PRN IV NAUSEA AND/OR VOMITING Last administered on 02/06/17 09:12; Admin Dose 4 MG; Start 01/30/17 at 02:30 Miscellaneous Medication (Bystolic) 5 mg DAILY PO Last administered on 08:44; Admin Dose 5 MG; Start 01/30/17 at 09:00 Enoxaparin Sodium (Lovenox) 120 mg BID SC Last administered on 02/01/17 20:31 ; Admin Dose 120 MG; Start 01/31/17 at 21:00; Status Future Hold IV Flush (NS 10 ml) 10 ml PRN PRN IV IV PROTOCOL; Start 02/02/17 at 14:30 Acetaminophen (Tylenol Tab) 650 mg Q4H PRN PO NON-CARDIAC PAIN LEVEL (1-3) Last administered on 02/07/17 08:42; Admin Dose 650 MG; Start 02/03/17 at 10:00 Morphine Sulfate (morphine) 2 mg Q2H PRN IV PAIN LEVEL 6-10; Start 02/05/17 at 21:30 Acetaminophen/ Hydrocodone Bitart ([place] (5/325)) 1 tab Q6H PRN PO PAIN LEVEL 6 -10; Start 02/05/17 at 21:30 Famotidine 20 mg 20 mg Q12 IV Last administered on 02/07/17 08:42; Admin Dose 20 MG; Start 02/05/17 at 22:00 Cefazolin Sodium 50 ml @ 100 mls/hr Q8 IVPB Last administered on 02/07/17 05: 25; Admin Dose 100 MLS/HR; Start 02/06/17 at 14:00 Lactated Ringer's (Lr) 1,000 ml @ 100 mls/hr Q10H IV Last administered on 02/07 01:15; Admin Dose 100 MLS/HR; Start 02/06/17 at 15:00 Diphenhydramine HCl (Benadryl) 25 mg Q6H PRN IV ITCHING; Start 02/06/17 at 21: 00 KELLY PAGE MD Feb 07, 2017 12:56
--- NOTE | 2017-02-07 12:59 | RADRPT ---
PROCEDURE: Left upper extremity venous ultrasound CLINICAL INDICATION: Left arm pain and swelling. Deep venous thrombosis. TECHNIQUE: Jordan scale, color doppler, spectral doppler ultrasound imaging of the venous system of the left upper extremity. Augmentation maneuvers were utilized. COMPARISON: Chest x-ray 02/03/2017 FINDINGS: LEFT: Internal jugular vein: Patent. Subclavian vein: Patent. Axillary vein: Echogenic thrombus is present. Brachial vein: Patent. Basilic vein: Thrombus is present. Cephalic vein: Patent. Radial vein: Patent. Ulnar vein: Patent. IMPRESSION: Deep venous thrombosis within the left axillary vein may be chronic. Superficial venous thrombosis within the left basilic vein. These appear to be associated with the patients left upper extremity PICC line. RPTAT: AADD .Abhay Patterson MD, Date Time Electronically viewed and signed by .Abhay Patterson MD, on 02/07/2017 12:58 .B/
--- NOTE | 2017-02-07 14:36 | PN ---
Date/Time of Note Date/Time of Note DATE: 02/07/17 TIME: 14:28 Assessment/Plan VTE Prophylaxis VTE Prophylaxis Intervention: LMWH Lines/Catheters IV Catheter Type (from Nrs): PICC Line Central line still needed: Yes Urinary Cath still in place: No Assessment/Plan Assessment/Plan A: thrombus lt axillary and basilic veins anemia- decreasing Hb pelvic mass- s/p resection, path pending antiphospholipid syndrome P: discussed with Dr. Verma (heme-onc), will begin lower dose LMWH for now and increase when possible, will d/c PICC when possible cont other rx monitor labs Subjective 24 Hr Interval Summary Free Text/Dictation Pt feeling some incisional discomfort. Has some swelling lt arm duplex +for axillary and basilic thrombi. No cp, sob. +flatus. Exam/Review of Systems Vital Signs Vitals Vital Signs Date Time Temp Pulse Resp B/P Pulse Ox O2 Delivery O2 Flow Rate FiO2 02/07/17 08:02 98.6 71 16 123/58 100 02/06/17 21:00 Nasal Cannula 2.0 Intake and Output 02/06/17 02/06/17 02/07/17 15:00 23:00 07:00 Intake Total 860 ml 1390 ml 2104 ml Output Total 900 ml 1500 ml Balance 860 ml 490 ml 604 ml Exam gen- nad, nontoxic lungs- CTA heart- regular abd- +BS, soft ext- swelling lt arm. Trace LE edema. Results Result Diagram: 02/07/17 0440 02/07/17 0440 Results 24 hrs Laboratory Tests Test 02/07/17 04:40 White Blood Count 7.0 # Red Blood Count 2.75 L Hemoglobin 7.8 L Hematocrit 25.7 L Mean Corpuscular Volume 93.5 Mean Corpuscular Hemoglobin 28.4 L Mean Corpuscular Hemoglobin Concent 30.4 L Red Cell Distribution Width 13.6 Platelet Count 181 Mean Platelet Volume 10.1 Neutrophils % 63.2 Lymphocytes % 24.4 Monocytes % 9.7 Eosinophils % 2.0 Basophils % 0.3 Nucleated Red Blood Cells % 0.0 Neutrophils # 4.4 Lymphocytes # 1.7 Monocytes # 0.7 Eosinophils # 0.1 Basophils # 0.0 Nucleated Red Blood Cells # 0.0 Sodium Level 138 Potassium Level 4.0 Chloride Level 103 Carbon Dioxide Level 32 H Anion Gap 7 L Blood Urea Nitrogen 8 Creatinine 0.86 Glucose Level 93 Calcium Level 8.0 L Medications Medications Current Medications Morphine Sulfate (morphine) 4 mg Q4H PRN IV PAIN; Start 01/30/17 at 02:30 Ondansetron HCl (Zofran Inj) 4 mg Q4H PRN IV NAUSEA AND/OR VOMITING Last administered on 02/06/17 09:12; Admin Dose 4 MG; Start 01/30/17 at 02:30 Miscellaneous Medication (Bystolic) 5 mg DAILY PO Last administered on 08:44; Admin Dose 5 MG; Start 01/30/17 at 09:00 Enoxaparin Sodium (Lovenox) 120 mg BID SC Last administered on 02/01/17 20:31 ; Admin Dose 120 MG; Start 01/31/17 at 21:00; Status Future Hold IV Flush (NS 10 ml) 10 ml PRN PRN IV IV PROTOCOL; Start 02/02/17 at 14:30 Acetaminophen (Tylenol Tab) 650 mg Q4H PRN PO NON-CARDIAC PAIN LEVEL (1-3) Last administered on 02/07/17 08:42; Admin Dose 650 MG; Start 02/03/17 at 10:00 Morphine Sulfate (morphine) 2 mg Q2H PRN IV PAIN LEVEL 6-10; Start 02/05/17 at 21:30 Acetaminophen/ Hydrocodone Bitart ([place] (5/325)) 1 tab Q6H PRN PO PAIN LEVEL 6 -10; Start 02/05/17 at 21:30 Famotidine 20 mg 20 mg Q12 IV Last administered on 02/07/17 08:42; Admin Dose 20 MG; Start 02/05/17 at 22:00 Cefazolin Sodium 50 ml @ 100 mls/hr Q8 IVPB Last administered on 02/07/17 05: 25; Admin Dose 100 MLS/HR; Start 02/06/17 at 14:00 Lactated Ringer's (Lr) 1,000 ml @ 50 mls/hr Q20H IV Last administered on 01:15; Admin Dose 100 MLS/HR; Start 02/06/17 at 15:00 Diphenhydramine HCl (Benadryl) 25 mg Q6H PRN IV ITCHING; Start 02/06/17 at 21: 00 HANANE CARIAS MD Feb 07, 2017 14:36
--- NOTE | 2017-02-07 14:43 | PN ---
Date/Time of Note Date/Time of Note DATE: 02/07/17 TIME: 14:39 Assessment/Plan VTE Prophylaxis VTE Prophylaxis Intervention: LMWH Lines/Catheters [facility]ter Type (from [facility]): PICC Line Central line still needed: Yes Urinary Cath still in place: No Assessment/Plan Assessment/Plan Negrita Grossman is a 51yo female with a history of DVT/PE associated with antiphosholipid syndrome who now presents to this hospital with pelvic pain. Workup reveals a 20cm right sided pelvic mass which should be explored surgically and removed. Pt is currently on Eliquis 5mg bid to maintain anticoagulation and prevent another DVT/PE. Pt will have to come off of anticoagulation ariadna-operatively and as a result her risk of developing another DVT/PE will be quite high. Pelvic surgery and severe obesity adds to the risk of DVT/PE so I would recommend placement of an IVC filter just prior to surgery. Furthermore, the pt may harbor a malignancy which also adds to the risk. Pt at this time has been transitioned to Lovenox 1mg/kg bid prior to surgery. Lovenox should be held 24 hours prior to surgery. Full anticoagulation should be resumed post-operatively once cleared by suspender maker onc. At the very least, DVT ppx dose of Lovenox or heparin should be started shortly after surgery. IVC filter can be removed at a later time but within 3 months of insertion so that retrieval is not more difficult. This pt should ideally remain anticoagulated indefinitely due to her high risk of developing a VTE or arterial clot as a result of having antiphospholipid syndrome. >Left upper extremity venous thromboembolism- PICC line associated Not unexpected given recent surgery and history of APLS As recommended by Dr. Cunha above, will administer lovenox prophylactically. Patient should be anticoagulated at usual dose say eliquis 5 mg BID, but will defer to Dr. Nieves in regards to timing. Usually, patient's maybe anticoagulated 36-48 hours after surgery depending upon risk >Anemia Likely secondary to recent procedure. I will order iron panel and will consider supplementation to reduce transfusion need. Plan is for transfusion with further decline in hemoglobin, but currently patient is not symptomatic, without chest pain or shortness of breath >Pelvic mass Follow-up pathology Subjective 24 Hr Interval Summary Free Text/Dictation Patient awake, alert, oriented. Denies any bleeding. Exam/Review of Systems Vital Signs Vitals Vital Signs Date Time Temp Pulse Resp B/P Pulse Ox O2 Delivery O2 Flow Rate FiO2 02/07/17 08:02 98.6 71 16 123/58 100 02/06/17 21:00 Nasal Cannula 2.0 Intake and Output 02/06/17 02/06/17 02/07/17 15:00 23:00 07:00 Intake Total 860 ml 1390 ml 2104 ml Output Total 900 ml 1500 ml Balance 860 ml 490 ml 604 ml Exam Constitutional: alert, oriented, well developed Psych: nl mood/affect, no complaints Head: atraumatic, normocephalic Eyes: EOMI, nl conjunctiva Neck: non-tender, supple Respiratory: clear to auscultation, normal air movement Cardiovascular: nl pulses, regular rate and rhythm Gastrointestinal: non-tender, other (abdominal site without erythema nor exudate), soft Musculoskeletal: nl extremities to inspection, nl gait and stance Extremities: normal pulses Neurological: CARGO VESSEL STEWARDESS II-XII intact, nl mental status Results Result Diagram: 02/07/1743902/07/17 044 Results 24 hrs Laboratory Tests Test 02/07/17 04:40 White Blood Count 7.0 # Red Blood Count 2.75 L Hemoglobin 7.8 L Hematocrit 25.7 L Mean Corpuscular Volume 93.5 Mean Corpuscular Hemoglobin 28.4 L Mean Corpuscular Hemoglobin Concent 30.4 L Red Cell Distribution Width 13.6 Platelet Count 181 Mean Platelet Volume 10.1 Neutrophils % 63.2 Lymphocytes % 24.4 Monocytes % 9.7 Eosinophils % 2.0 Basophils % 0.3 Nucleated Red Blood Cells % 0.0 Neutrophils # 4.4 Lymphocytes # 1.7 Monocytes # 0.7 Eosinophils # 0.1 Basophils # 0.0 Nucleated Red Blood Cells # 0.0 Sodium Level 138 Potassium Level 4.0 Chloride Level 103 Carbon Dioxide Level 32 H Anion Gap 7 L Blood Urea Nitrogen 8 Creatinine 0.86 Glucose Level 93 Calcium Level 8.0 L Medications Medications Current Medications Morphine Sulfate (morphine) 4 mg Q4H PRN IV PAIN; Start 01/30/17 at 02:30 Ondansetron HCl (Zofran Inj) 4 mg Q4H PRN IV NAUSEA AND/OR VOMITING Last administered on 02/06/17t 09:12; Admin Dose 4 MG; Start 01/30/17 at 02:30 Miscellaneous Medication (Bystolic) 5 mg DAILY PO Last administered on 08:44; Admin Dose 5 MG; Start 01/30/17 at 09:00 Enoxaparin Sodium (Lovenox) 120 mg BID SC Last administered on 02/01/17 20:31 ; Admin Dose 120 MG; Start 01/31/17 at 21:00; Status Future Hold IV Flush (NS 10 ml) 10 ml PRN PRN IV IV PROTOCOL; Start 02/02/17 at 14:30 Acetaminophen (Tylenol Tab) 650 mg Q4H PRN PO NON-CARDIAC PAIN LEVEL (1-3) Last administered on 02/07/17 08:42; Admin Dose 650 MG; Start 02/03/17 at 10:00 Morphine Sulfate (morphine) 2 mg Q2H PRN IV PAIN LEVEL 6-10; Start 02/05/17 at 21:30 Acetaminophen/ Hydrocodone Bitart ([place] (5/325)) 1 tab Q6H PRN PO PAIN LEVEL 6 -10; Start 02/05/17 at 21:30 Famotidine 20 mg 20 mg Q12 IV Last administered on 02/07/17 08:42; Admin Dose 20 MG; Start 02/05/17 at 22:00 Cefazolin Sodium 50 ml @ 100 mls/hr Q8 IVPB Last administered on 02/07/17 05: 25; Admin Dose 100 MLS/HR; Start 02/06/17 at 14:00 Lactated Ringer's (Lr) 1,000 ml @ 50 mls/hr Q20H IV Last administered on 01:15; Admin Dose 100 MLS/HR; Start 02/06/17 at 15:00 Diphenhydramine HCl (Benadryl) 25 mg Q6H PRN IV ITCHING; Start 02/06/17 at 21: 00 SHILPA GARCIA MD Feb 07, 2017 14:43
[2017-02-07] MEDS: ENOXAPARIN 40 MG/0.4 ML SYG SC SCH (15:21)
[2017-02-07] MEDS: ONDANSETRON 4 MG INJ IV PRN (17:55)
[2017-02-07 18:29] LABS: ADD SCAN DIFF NO
[2017-02-07 18:32] LABS: BASOPHILS % 0.4 % (0.0-2.0); EOSINOPHILS # 0.2 10^3/ul (0.0-0.5); EOSINOPHILS % 2.7 % (0.0-7.0); HEMATOCRIT 26.7 % (37.0-47.0); HEMOGLOBIN 8.1 g/dl (12.0-16.0); LYMPHOCYTES % 23.4 % (15.0-51.0); MEAN CORPUSCULAR HEMOGLOBIN 27.7 pg (29.0-33.0); MEAN CORPUSCULAR HGB CONC 30.3 g/dl (32.0-37.0); MEAN CORPUSCULAR VOLUME 91.4 fl (82.0-101.0); MEAN PLATELET VOLUME 9.9 fl (7.4-10.4); MONOCYTE # 0.8 10^3/ul (0.3-0.9); MONOCYTES % 9.4 % (0.0-11.0); NEUTROPHIL # 5.4 10^3/ul (1.6-7.5); NEUTROPHILS % 63.7 % (39.0-77.0); PLATELET COUNT 186 10^3/UL (140-415); RED BLOOD COUNT 2.92 10^6/ul (4.20-5.40); RED CELL DISTRIBUTION WIDTH 13.5 % (11.5-14.5); WHITE BLOOD COUNT 8.5 10^3/ul (4.8-10.8)
--- NOTE | 2017-02-07 19:49 | PN ---
Date/Time of Note Date/Time of Note DATE: 02/07/17 TIME: 19:41 Assessment/Plan VTE Prophylaxis VTE Prophylaxis Intervention: LMWH Lines/Catheters [facility] PICC Line Central line still needed: Yes Urinary Cath still in place: No Assessment/Plan Chief Complaint/Hosp Course Pelvic-abdominal mass Problems: Assessment/Plan A- Doppler + left upper ext P- given than she had a very complicated laparoscopic procedure due to adhesions and possible previous endometriosis or diverticular disease: given that she was anemic preop and now quite anemic possibly due to some postop ooze but stable h/h at this time, it would be in her interest to transfuse ( specific written criteria irrelevant) and proceed with Lovenox .9mg/kg bid initially or start Eliquis. Subjective 24 Hr Interval Summary Free Text/Dictation Feels about the same overall. Exam/Review of Systems Vital Signs Vitals Vital Signs Date Time Temp Pulse Resp B/P Pulse Ox O2 Delivery O2 Flow Rate FiO2 02/07/17 08:02 98.6 71 16 123/58 100 02/07/17 08:00 Nasal Cannula 2.0 Intake and Output 02/06/17 02/06/17 02/07/17 15:00 23:00 07:00 Intake Total 860 ml 1390 ml 2104 ml Output Total 900 ml 1500 ml Balance 860 ml 490 ml 604 ml Results Result Diagram: 02/07/17 1750 02/07/17 0440 Results 24 hrs Laboratory Tests Test 02/07/17 04:40 02/07/17 17:50 White Blood Count 7.0 # 8.5 # Red Blood Count 2.75 L 2.92 L Hemoglobin 7.8 L 8.1 L Hematocrit 25.7 L 26.7 L Mean Corpuscular Volume 93.5 91.4 Mean Corpuscular Hemoglobin 28.4 L 27.7 L Mean Corpuscular Hemoglobin Concent 30.4 L 30.3 L Red Cell Distribution Width 13.6 13.5 Platelet Count 181 186 Mean Platelet Volume 10.1 9.9 Neutrophils % 63.2 63.7 Lymphocytes % 24.4 23.4 Monocytes % 9.7 9.4 Eosinophils % 2.0 2.7 Basophils % 0.3 0.4 Nucleated Red Blood Cells % 0.0 0.0 Neutrophils # 4.4 5.4 Lymphocytes # 1.7 2.0 Monocytes # 0.7 0.8 Eosinophils # 0.1 0.2 Basophils # 0.0 0.0 Nucleated Red Blood Cells # 0.0 0.0 Sodium Level 138 Potassium Level 4.0 Chloride Level 103 Carbon Dioxide Level 32 H Anion Gap 7 L Blood Urea Nitrogen 8 Creatinine 0.86 Glucose Level 93 Calcium Level 8.0 L Medications Medications Current Medications Morphine Sulfate (morphine) 4 mg Q4H PRN IV PAIN; Start 01/30/17 at 02:30 Ondansetron HCl (Zofran Inj) 4 mg Q4H PRN IV NAUSEA AND/OR VOMITING Last administered on 02/07/17 17:55; Admin Dose 4 MG; Start 01/30/17 at 02:30 Miscellaneous Medication (Bystolic) 5 mg DAILY PO Last administered on 08:44; Admin Dose 5 MG; Start 01/30/17 at 09:00 Enoxaparin Sodium (Lovenox) 120 mg BID SC Last administered on 02/01/17 20:31 ; Admin Dose 120 MG; Start 01/31/17 at 21:00; Status Future Hold IV Flush (NS 10 ml) 10 ml PRN PRN IV IV PROTOCOL; Start 02/02/17 at 14:30 Acetaminophen (Tylenol Tab) 650 mg Q4H PRN PO NON-CARDIAC PAIN LEVEL (1-3) Last administered on 02/07/17 15:20; Admin Dose 650 MG; Start 02/03/17 at 10:00 Morphine Sulfate (morphine) 2 mg Q2H PRN IV PAIN LEVEL 6-10; Start 02/05/17 at 21:30 Acetaminophen/ Hydrocodone Bitart ([place] (5/325)) 1 tab Q6H PRN PO PAIN LEVEL 6 -10; Start 02/05/17 at 21:30 Famotidine 20 mg 20 mg Q12 IV Last administered on 02/07/17 08:42; Admin Dose 20 MG; Start 02/05/17 at 22:00; Stop 02/07/17 at 23:59 Cefazolin Sodium 50 ml @ 100 mls/hr Q8 IVPB Last administered on 02/07/17 15: 20; Admin Dose 100 MLS/HR; Start 02/06/17 at 14:00 Lactated Ringer's (Lr) 1,000 ml @ 50 mls/hr Q20H IV Last administered on 17:55; Admin Dose 50 MLS/HR; Start 02/06/17 at 15:00 Diphenhydramine HCl (Benadryl) 25 mg Q6H PRN IV ITCHING; Start 02/06/17 at 21: 00 Enoxaparin Sodium (Lovenox) 40 mg DAILY SC Last administered on 02/07/17 15:21 ; Admin Dose 40 MG; Start 02/07/17 at 15:00 Famotidine (Pepcid) 20 mg Q12 PO ; Start 02/08/17 at 09:00 KELLY PAGE MD Feb 07, 2017 19:49
--- NOTE | 2017-02-07 22:00 | OPR ---
Date/Time of Note Date/Time of Note DATE: 02/07/17 TIME: 21:59 Operative Report Free Text/Dictation OPERATIVE REPORT [facility] Name: Negrita Grossman Medical Date: 02/05/17 Preoperative Diagnosis: 1-Right adnexal mass with uterine enlargement; fibroids a/o adenomyosis 2-Coagulopathy; s/p IVC filter insertion Postoperative Diagnosis: 1- Benign right adnexal mass; pathology pending 2- Multiple fibroids possible adenomyosis 3- Ureteral stricture 4- Extensive pelvic adhesions Procedures: 1- Laparoscopic subtotal hysterectomy with right salpingoophorectomy and left salpingectomy 2- Bilateral ureteral dissection with repositioning 3- Retroperitoneal uterine artery ligation 4- Extensive enterolysis Surgeon: Dr. Nieves Hand Quilter: Dr. Jv Neal Anesthesia: General with regional Indications for Surgery The patient was a 51 year old female with a large symptomatic right adnexal mass and minimally elevated CA-125 and uterine enlargement consistent with fibroids and/or adenomyosis with severe menorrhagia, probably also due to necessity of chronic Elaquis due to a metabolic coagulopathy. She had an IVC filter placed preop and after considering all options with risks and benfits agreed to a laparoscopic hysterectomy with Name: Negrita Grossman Medical right salpingoophorectomy and possible bilateral salpingoophorectomy with staging if needed. Findings and Summary The patient was laparoscoped and found to have a large 12-15 cm right adnexal mass that appeared to have had intermittent torsion and was adherent to the pelvic sidewall and hypervascular fibroids and adenomyosis that were distorting the retroperitoneal anatomy significantly. Therefore it was necessary to open the retroperitoneum bilaterally and dissect and reposition the ureters bilaterally for the purposes of access to the IP-ligament on side of the mass and contralaterally due to adhesions as well as the lower uterine segment and the vasculature and due to obliteration of the cul-de-sac due to adhesions. Due to additional anatomic distortion by the enlarged uterus and hypervascualrity the uterine arteries were clipped bilaterally immediately distal to the branching of the hypogastrics. The laparoscopic supracervical hysterectomy with unilateral salpingoophorectomy was then completed with removal thru a minilaparotomy without incident. Procedure: After being prepped and draped in the usual manner an EEA sizer and pneumo- occluder was inserted vaginally. A 5-millimeter trocar was then placed immediately cephlad to the umbilicus without incident and due to massive size and location the mass was entered and partly suctioned, after which a 5- millimeter trocar was immediately placed in the left upper quadrant and insufflation was completed to 15-mm hg. Subsequently, we insufflated and placed two 5 millimeter trocars laterally and closed the aforementioned 5-mm defect after 2 liters was suctioned with an endo-loop. Subsequently a 12 millimeter trocar was placed suprapubically. At this time any pelvic adhesions were lysed with sharp dissection during which it was noted that. a large 12-15 cm complex right adnexal mass was adherent to the pelvic sidewall with ovarian tissue near the IP-ligament and triple pedicle discolored suggestive of an intermittent torsion, and the contralateral adnexia was grossly within normal limits in appearance but Name: [facility] was densely adherent to the sidewall with obliteration of the cul-de-sac due to scar tissue and adhesions and there was significant uterine enlargement from probable fibroids and adenomyosis and hypervascularity, all distorting the retroperitoneal anatomy significantly, all necessitating a ureteral dissection with repositioning. Initially the right round ligament was transected with the Thunderbeat and the retroperitoneal spaced opened parallel to the IP ligament and laterally with the same devise and Omni. The ureter was identified and because of the large adnexal mass and distorted and enlarged IP-ligament required a specific dissection and repositioning. The ureter was bluntly dissected away from the enlarged uterus and broad ligament with an Omni, and carefully repositioned lateral to the broad ligament. Because of some oozing and because the anatomy of the uterus with adjacent mass resulted in displacement of the vessels laterally it mandated that we isolate the uterine artery and vein adjacent to the ureter that was lateralized to the level of the hypogastric artery using the endo-dissector and Omni for hemostasis with the previously dissected ureter visualized. Therefore in this case the uterine artery was hemoclipped immediately distal to the branching of the hypogastric and at the bifurcation of the hypogastric, proximal to the branching of the uterine and obliterated umbilical; salvaging both observed superior and inferior vesicle while controlling the entire uterine with associated collateral branches. At this time the right IP-ligament was desiccated and transected with the Gyrus bipolar cutting forceps Thunderbeat and Omni, after which the mass was further mobilized with blunt dissection and the right triple pedicle was desiccated and transected with the Omni and Thunderbeat, after which the mass was allowed to remain in the abdomen to reduce anesthesia time, knowing a minilaparotomy was needed to also remove the uterus. Subsequently, the left round ligament was transected with a Gyrus bipolar cutting forceps and the retroperitoneum opened parallel to the infundibulo- pelvic (IP) ligament with a Gyrus bipolar cutting forceps and Omni due with considerably more scar tissue noted than contralaterally. The ureteral dissection with repositioning was undertaken. The ureter was dissected away from the peritoneum with adjacent uterus with adnexia and repositioned with care using the endo-dissector and Omni bluntly, again with the Name: [facility] dissection being somewhat required due to some distortion of the retroperitoneum by the large uterus with fibroids/adenomyosis and hypervascularity with scar tissue . This process was carried out throughout the ureteral length in the pelvis and it peristalsed normally once repositioned. Again, because of hypervascularity and because the anatomy of the uterus resulted in displacement of the vessels laterally it mandated that we isolate the uterine artery and vein adjacent to the ureter that was lateralized to the level of the hypogastric artery using the endo-dissector and Omni for hemostasis with the previously dissected ureter visualized. Therefore in this case the uterine artery was hemoclipped immediately distal to the branching of the hypogastric and at the bifurcation of the hypogastric, proximal to the branching of the uterine and obliterated umbilical; salvaging both observed superior and inferior vesicle while controlling the entire uterine with associated collateral branches. At this time the left triple pedicle was desiccated and transected with the Thunderbeat. At this time a corkscrew was placed in the aforementioned fibroids and the mass dissected away from the areolar tissue and ureter as well as vascular structures in the retroperitoneum with the endo-dissector and Omni in not near thermal sensitive structures. We then used a cork screw manipulator placed through the 12-mm suprapubic trocar to manipulate the uterus allowing development or the bladder flap with care due to sections with the Gyrus Cutting Forceps and Omni and blunt dissection. The right uterine artery was transected with a Thunderbeat perpendicular to the distal lower uterine segment with oozing and additional cautery with the Omni and the Cardinal ligament and utero-sacral ligament were both transected with a Omni and Thunderbeat parallel to the lower uterine segment and cervix via the contralateral trocar site. An identical series of steps were taken on the left side. Hence, the uterus was removed from the cervix with the Thunderbeat and the cervix ablated with the argon beam chemical engineering teacher for additional needed hemostasis with hemostasis confirmed. The cervix and the endocervical canal were thoroughly ablated with the argon beam chemical engineering teacher a second time. The left fallopian tube was removed with a Thunderbeat uneventfully. The uterus was then removed with the aforementioned right adnexia with a minilaparotomy. The 12- Name: [facility] millimeter trocar site was minimally extended to 4-6 cm midline to a minilaparotomy with sharp dissection and an electrocautery and uterus was then removed with minimal morcellation and the adnexia removed separately with suction and traction. The incision was partly closed with interrupted 0- Vicryl suture, after which the 12-millimeter trocar was reinserted. After irrigating and assuring hemostasis the 12 millimeter trocar was removed and the fascia was closed with 0-vicryl using an endo-close devise. The gas was removed and the skin of all sites then closed with subcutaneous 3-0 Vicryl suture and interrupted 5-0 Plain Gut suture. The EBL was 200 cc and the patient tolerated the procedure well and left the OR in good condition. Suleman Nieves M.D. Surgeon: POPPY FRANK MD Anesthesia: other (Local) Estimated Blood Loss: minimal Grafts/Implants Cook Celect IVC filter Complications: None SULEMAN NIEVES MD Feb 07, 2017 22:00
[2017-02-08 03:46] VITALS: BP 135/60; PULSE 77; RESP 18
[2017-02-08] MEDS: ACETAMINOPHEN 325 MG TAB PO PRN (04:08)
[2017-02-08] MEDS ORDERED: DIPHENHYDRAMINE 25 MG CAP PO STA (04:14)
[2017-02-08] MEDS ORDERED: FUROSEMIDE 20 MG INJ IV ONE (06:00)
[2017-02-08] MEDS: CEFAZOLIN 1 GM/50 ML (PMX) 50 ML IVPB SCH ×3 (06:37→21:29)
[2017-02-08 08:02] VITALS: BP 143/70; RESP 18
[2017-02-08 09:41] LABS: ADD SCAN DIFF NO
[2017-02-08] MEDS: NEBIVOLOL 5 MG TAB PO SCH (09:41)
[2017-02-08] MEDS: FAMOTIDINE 20 MG TAB PO SCH ×2 (09:41→20:35)
[2017-02-08 09:42] LABS: BASOPHIL # 0.1 10^3/ul (0.0-0.1); BASOPHILS % 0.6 % (0.0-2.0); EOSINOPHILS # 0.3 10^3/ul (0.0-0.5); EOSINOPHILS % 3.1 % (0.0-7.0); HEMATOCRIT 32.1 % (37.0-47.0); HEMOGLOBIN 10.2 g/dl (12.0-16.0); LYMPHOCYTES # 1.8 10^3/ul (0.8-2.9); LYMPHOCYTES % 22.3 % (15.0-51.0); MEAN CORPUSCULAR HEMOGLOBIN 28.3 pg (29.0-33.0); MEAN CORPUSCULAR HGB CONC 31.8 g/dl (32.0-37.0); MEAN CORPUSCULAR VOLUME 88.9 fl (82.0-101.0); MEAN PLATELET VOLUME 9.5 fl (7.4-10.4); MONOCYTE # 0.7 10^3/ul (0.3-0.9); MONOCYTES % 9.1 % (0.0-11.0); NEUTROPHIL # 5.2 10^3/ul (1.6-7.5); NEUTROPHILS % 64.5 % (39.0-77.0); PLATELET COUNT 218 10^3/UL (140-415); RED BLOOD COUNT 3.61 10^6/ul (4.20-5.40); RED CELL DISTRIBUTION WIDTH 13.3 % (11.5-14.5)
[2017-02-08] MEDS: ENOXAPARIN 40 MG/0.4 ML SYG SC SCH (09:44)
[2017-02-08 10:22] LABS: CALCIUM 8.7 mg/dl (8.4-10.2); CREATININE 0.88 mg/dl (0.44-1.00); POTASSIUM 3.6 mmol/L (3.5-5.1)
--- NOTE | 2017-02-08 13:40 | PN ---
Date/Time of Note Date/Time of Note DATE: 02/08/17 TIME: 13:37 Assessment/Plan VTE Prophylaxis VTE Prophylaxis Intervention: other Lines/Catheters IV C[facility]ter Type (from [facility]): PICC Line Central line still needed: Yes Urinary Cath still in place: No Assessment/Plan Assessment/Plan Negrita Grossman is a 51yo female with a history of DVT/PE associated with antiphosholipid syndrome who now presents to this hospital with pelvic pain. Workup reveals a 20cm right sided pelvic mass which should be explored surgically and removed. Pt is currently on Eliquis 5mg bid to maintain anticoagulation and prevent another DVT/PE. Pt will have to come off of anticoagulation ariadna-operatively and as a result her risk of developing another DVT/PE will be quite high. Pelvic surgery and severe obesity adds to the risk of DVT/PE so I would recommend placement of an IVC filter just prior to surgery. Furthermore, the pt may harbor a malignancy which also adds to the risk. Pt at this time has been transitioned to Lovenox 1mg/kg bid prior to surgery. Lovenox should be held 24 hours prior to surgery. Full anticoagulation should be resumed post-operatively once cleared by [facility] onc. At the very least, DVT ppx dose of Lovenox or heparin should be started shortly after surgery. IVC filter can be removed at a later time but within 3 months of insertion so that retrieval is not more difficult. This pt should ideally remain anticoagulated indefinitely due to her high risk of developing a VTE or arterial clot as a result of having antiphospholipid syndrome. >Left upper extremity venous thromboembolism- PICC line associated Not unexpected given recent surgery and history of APLS As recommended by Dr. Cunha above, administered lovenox prophylactically. Patient started on eliquis 2.5 mg BID, at recommendation of Dr. Nieves Will consider increasing to usual 5 mg BID dosing for treatment of thromboembolism >Anemia Likely secondary to recent procedure. Administered prophylactic blood transfusion with appropriate rise in hemoglobin. >Pelvic mass Follow-up pathology Subjective 24 Hr Interval Summary Free Text/Dictation Patient notes bowel movement this am. Denies any chest pain and shortness of breath. Exam/Review of Systems Vital Signs Vitals Vital Signs Date Time Temp Pulse Resp B/P Pulse Ox O2 Delivery O2 Flow Rate FiO2 02/08/17 08:02 98.5 74 18 143/70 100 02/08/17 03:46 Room Air 02/07/17 08:00 2.0 Intake and Output 02/07/17 02/07/17 02/08/17 15:00 23:00 07:00 Intake Total 50 ml 1476 ml 930 ml Output Total 300 ml Balance 50 ml 1176 ml 930 ml Exam Constitutional: alert, oriented Psych: nl mood/affect, no complaints Head: atraumatic, normocephalic Eyes: EOMI, nl lids Neck: non-tender, supple Respiratory: clear to auscultation, normal air movement Cardiovascular: nl pulses, regular rate and rhythm Gastrointestinal: non-tender, soft Extremities: normal pulses Results Result Diagram: 02/08/17 0935 02/08/17 0935 Results 24 hrs Laboratory Tests Test 02/07/17 17:50 02/08/17 09:35 White Blood Count 8.5 # 8.0 Red Blood Count 2.92 L 3.61 #L Hemoglobin 8.1 L 10.2 #L Hematocrit 26.7 L 32.1 #L Mean Corpuscular Volume 91.4 88.9 Mean Corpuscular Hemoglobin 27.7 L 28.3 L Mean Corpuscular Hemoglobin Concent 30.3 L 31.8 L Red Cell Distribution Width 13.5 13.3 Platelet Count 186 218 Mean Platelet Volume 9.9 9.5 Neutrophils % 63.7 64.5 Lymphocytes % 23.4 22.3 Monocytes % 9.4 9.1 Eosinophils % 2.7 3.1 Basophils % 0.4 0.6 Nucleated Red Blood Cells % 0.0 0.0 Neutrophils # 5.4 5.2 Lymphocytes # 2.0 1.8 Monocytes # 0.8 0.7 Eosinophils # 0.2 0.3 Basophils # 0.0 0.1 Nucleated Red Blood Cells # 0.0 0.0 Sodium Level 136 Potassium Level 3.6 Chloride Level 98 Carbon Dioxide Level 32 H Anion Gap 10 Blood Urea Nitrogen 7 Creatinine 0.88 Glucose Level 89 Calcium Level 8.7 Medications Medications Current Medications Morphine Sulfate (morphine) 4 mg Q4H PRN IV PAIN; Start 01/30/17 at 02:30 Ondansetron HCl (Zofran Inj) 4 mg Q4H PRN IV NAUSEA AND/OR VOMITING Last administered on 02/07/17t 17:55; Admin Dose 4 MG; Start 01/30/17 at 02:30 Miscellaneous Medication (Bystolic) 5 mg DAILY PO Last administered on 09:41; Admin Dose 5 MG; Start 01/30/17 at 09:00 Enoxaparin Sodium (Lovenox) 120 mg BID SC Last administered on 02/01/17 20:31 ; Admin Dose 120 MG; Start 01/31/17 at 21:00; Status Future Hold IV Flush (NS 10 ml) 10 ml PRN PRN IV IV PROTOCOL; Start 02/02/17 at 14:30 Acetaminophen (Tylenol Tab) 650 mg Q4H PRN PO NON-CARDIAC PAIN LEVEL (1-3) Last administered on 02/08/17 04:08; Admin Dose 650 MG; Start 02/03/17 at 10:00 Morphine Sulfate (morphine) 2 mg Q2H PRN IV PAIN LEVEL 6-10; Start 02/05/17 at 21:30 Acetaminophen/ Hydrocodone Bitart 1 tab 1 tab Q6H PRN PO PAIN LEVEL 6-10 Last administered on 02/07/17 20:56; Admin Dose 1 TAB; Start 02/05/17 at 21:30 Cefazolin Sodium 50 ml @ 100 mls/hr Q8 IVPB Last administered on 02/08/17 06: 37; Admin Dose 100 MLS/HR; Start 02/06/17 at 14:00 Lactated Ringer's (Lr) 1,000 ml @ 50 mls/hr Q20H IV Last administered on 17:55; Admin Dose 50 MLS/HR; Start 02/06/17 at 15:00 Diphenhydramine HCl (Benadryl) 25 mg Q6H PRN IV ITCHING; Start 02/06/17 at 21: 00 Enoxaparin Sodium (Lovenox) 40 mg DAILY SC Last administered on 02/08/17 09:44 ; Admin Dose 40 MG; Start 02/07/17 at 15:00 Famotidine (Pepcid) 20 mg Q12 PO Last administered on 02/08/17 09:41; Admin Dose 20 MG; Start 02/08/17 at 09:00 SHILPA GARCIA MD Feb 08, 2017 13:40
--- NOTE | 2017-02-08 15:01 | PN ---
Date/Time of Note Date/Time of Note DATE: 02/08/17 TIME: 14:55 Assessment/Plan VTE Prophylaxis VTE Prophylaxis Intervention: other Lines/Catheters IV Catheter Type (from Nrs): PICC Line Central line still needed: Yes Urinary Cath still in place: No Assessment/Plan Assessment/Plan A: Lt axillary and basilic vein thrombi pelvic mass anemia antiphospholipid syndrome P: cont anticoagulation per heme await path results cont current rx Subjective 24 Hr Interval Summary Free Text/Dictation Pt feeling better. Still some soreness at incision. Lt arm sl better. No cp, sob. +BM today. S/p PRBCs. Switched to eliquis from lovenox. Exam/Review of Systems Vital Signs Vitals Vital Signs Date Time Temp Pulse Resp B/P Pulse Ox O2 Delivery O2 Flow Rate FiO2 02/08/17 08:02 98.5 74 18 143/70 100 02/08/17 03:46 Room Air 02/07/17 08:00 2.0 Intake and Output 02/07/17 02/07/17 02/08/17 15:00 23:00 07:00 Intake Total 50 ml 1476 ml 930 ml Output Total 300 ml Balance 50 ml 1176 ml 930 ml Exam gen- nad, nontoxic. lungs- cta heart- regular abd- +BS, soft, mild ariadna-incisional tenderness ext- trace edema Results Result Diagram: 02/08/17 0935 02/08/17 0935 Results 24 hrs Laboratory Tests Test 02/07/17 17:50 02/08/17 09:35 White Blood Count 8.5 # 8.0 Red Blood Count 2.92 L 3.61 #L Hemoglobin 8.1 L 10.2 #L Hematocrit 26.7 L 32.1 #L Mean Corpuscular Volume 91.4 88.9 Mean Corpuscular Hemoglobin 27.7 L 28.3 L Mean Corpuscular Hemoglobin Concent 30.3 L 31.8 L Red Cell Distribution Width 13.5 13.3 Platelet Count 186 218 Mean Platelet Volume 9.9 9.5 Neutrophils % 63.7 64.5 Lymphocytes % 23.4 22.3 Monocytes % 9.4 9.1 Eosinophils % 2.7 3.1 Basophils % 0.4 0.6 Nucleated Red Blood Cells % 0.0 0.0 Neutrophils # 5.4 5.2 Lymphocytes # 2.0 1.8 Monocytes # 0.8 0.7 Eosinophils # 0.2 0.3 Basophils # 0.0 0.1 Nucleated Red Blood Cells # 0.0 0.0 Sodium Level 136 Potassium Level 3.6 Chloride Level 98 Carbon Dioxide Level 32 H Anion Gap 10 Blood Urea Nitrogen 7 Creatinine 0.88 Glucose Level 89 Calcium Level 8.7 Medications Medications Current Medications Morphine Sulfate (morphine) 4 mg Q4H PRN IV PAIN; Start 01/30/17 at 02:30 Ondansetron HCl (Zofran Inj) 4 mg Q4H PRN IV NAUSEA AND/OR VOMITING Last administered on 02/07/17 17:55; Admin Dose 4 MG; Start 01/30/17 at 02:30 Miscellaneous Medication (Bystolic) 5 mg DAILY PO Last administered on 09:41; Admin Dose 5 MG; Start 01/30/17 at 09:00 IV Flush (NS 10 ml) 10 ml PRN PRN IV IV PROTOCOL; Start 02/02/17 at 14:30 Acetaminophen (Tylenol Tab) 650 mg Q4H PRN PO NON-CARDIAC PAIN LEVEL (1-3) Last administered on 02/08/17 04:08; Admin Dose 650 MG; Start 02/03/17 at 10:00 Morphine Sulfate (morphine) 2 mg Q2H PRN IV PAIN LEVEL 6-10; Start 02/05/17 at 21:30 Acetaminophen/ Hydrocodone Bitart 1 tab 1 tab Q6H PRN PO PAIN LEVEL 6-10 Last administered on 02/07/17 20:56; Admin Dose 1 TAB; Start 02/05/17 at 21:30 Cefazolin Sodium 50 ml @ 100 mls/hr Q8 IVPB Last administered on 02/08/17 06: 37; Admin Dose 100 MLS/HR; Start 02/06/17 at 14:00 Lactated Ringer's (Lr) 1,000 ml @ 50 mls/hr Q20H IV Last administered on 17:55; Admin Dose 50 MLS/HR; Start 02/06/17 at 15:00 Diphenhydramine HCl (Benadryl) 25 mg Q6H PRN IV ITCHING; Start 02/06/17 at 21: 00 Famotidine (Pepcid) 20 mg Q12 PO Last administered on 02/08/17t 09:41; Admin Dose 20 MG; Start 02/08/17 at 09:00 Apixaban (Eliquis) 2.5 mg BID PO ; Start 02/08/17 at 21:00 HANANE CARIAS MD Feb 08, 2017 15:01
--- NOTE | 2017-02-08 15:09 | PN ---
Date/Time of Note Date/Time of Note DATE: 02/08/17 TIME: 15:02 Assessment/Plan VTE Prophylaxis VTE Prophylaxis Intervention: other Lines/Catheters IV Catheter Type (from Nrsg): PICC Line Central line still needed: Yes Urinary Cath still in place: No Assessment/Plan Chief Complaint/Hosp Course Pelvic-abdominal mass, coagulopathy, upper extremity DVT Problems: Assessment/Plan A- doing better with H/H increased more than anticipated from 1 unit PRBC; probably due to fluid mobilization and output. P- IFF H/H stable tomorrow I would concur with increasing Eliquis to 5 mg p.o.bid and if no suggestion of post op bleeding and stable medically anticipate d/c Thursday if other docs concur. Subjective 24 Hr Interval Summary Free Text/Dictation Minimal pain, jacob diet and OOB more. Exam/Review of Systems Vital Signs Vitals Vital Signs Date Time Temp Pulse Resp B/P Pulse Ox O2 Delivery O2 Flow Rate FiO2 02/08/17 08:02 98.5 74 18 143/70 100 02/08/17 03:46 Room Air 02/07/17 08:00 2.0 Intake and Output 02/07/17 02/07/17 02/08/17 15:00 23:00 07:00 Intake Total 50 ml 1476 ml 930 ml Output Total 300 ml Balance 50 ml 1176 ml 930 ml Exam Resp- clear CVS- NSR Abd- soft NT and clean Ext NT no edema other than LUQ Results Result Diagram: 02/08/17 0935 02/08/17 0935 Results 24 hrs Laboratory Tests Test 02/07/17 17:50 02/08/17 09:35 White Blood Count 8.5 # 8.0 Red Blood Count 2.92 L 3.61 #L Hemoglobin 8.1 L 10.2 #L Hematocrit 26.7 L 32.1 #L Mean Corpuscular Volume 91.4 88.9 Mean Corpuscular Hemoglobin 27.7 L 28.3 L Mean Corpuscular Hemoglobin Concent 30.3 L 31.8 L Red Cell Distribution Width 13.5 13.3 Platelet Count 186 218 Mean Platelet Volume 9.9 9.5 Neutrophils % 63.7 64.5 Lymphocytes % 23.4 22.3 Monocytes % 9.4 9.1 Eosinophils % 2.7 3.1 Basophils % 0.4 0.6 Nucleated Red Blood Cells % 0.0 0.0 Neutrophils # 5.4 5.2 Lymphocytes # 2.0 1.8 Monocytes # 0.8 0.7 Eosinophils # 0.2 0.3 Basophils # 0.0 0.1 Nucleated Red Blood Cells # 0.0 0.0 Sodium Level 136 Potassium Level 3.6 Chloride Level 98 Carbon Dioxide Level 32 H Anion Gap 10 Blood Urea Nitrogen 7 Creatinine 0.88 Glucose Level 89 Calcium Level 8.7 Medications Medications Current Medications Morphine Sulfate (morphine) 4 mg Q4H PRN IV PAIN; Start 01/30/17 at 02:30 Ondansetron HCl (Zofran Inj) 4 mg Q4H PRN IV NAUSEA AND/OR VOMITING Last administered on 02/07/17 17:55; Admin Dose 4 MG; Start 01/30/17 at 02:30 Miscellaneous Medication (Bystolic) 5 mg DAILY PO Last administered on 09:41; Admin Dose 5 MG; Start 01/30/17 at 09:00 IV Flush (NS 10 ml) 10 ml PRN PRN IV IV PROTOCOL; Start 02/02/17 at 14:30 Acetaminophen (Tylenol Tab) 650 mg Q4H PRN PO NON-CARDIAC PAIN LEVEL (1-3) Last administered on 02/08/17 04:08; Admin Dose 650 MG; Start 02/03/17 at 10:00 Morphine Sulfate (morphine) 2 mg Q2H PRN IV PAIN LEVEL 6-10; Start 02/05/17 at 21:30 Acetaminophen/ Hydrocodone Bitart 1 tab 1 tab Q6H PRN PO PAIN LEVEL 6-10 Last administered on 02/07/17 20:56; Admin Dose 1 TAB; Start 02/05/17 at 21:30 Cefazolin Sodium 50 ml @ 100 mls/hr Q8 IVPB Last administered on 02/08/17 06: 37; Admin Dose 100 MLS/HR; Start 02/06/17 at 14:00 Lactated Ringer's (Lr) 1,000 ml @ 50 mls/hr Q20H IV Last administered on 17:55; Admin Dose 50 MLS/HR; Start 02/06/17 at 15:00 Diphenhydramine HCl (Benadryl) 25 mg Q6H PRN IV ITCHING; Start 02/06/17 at 21: 00 Famotidine (Pepcid) 20 mg Q12 PO Last administered on 02/08/17t 09:41; Admin Dose 20 MG; Start 02/08/17 at 09:00 Apixaban (Eliquis) 2.5 mg BID PO ; Start 02/08/17 at 21:00 KELLY PAGE MD Feb 08, 2017 15:09
[2017-02-08] MEDS: LACTATED RINGER'S 1,000 ML IV SCH (18:54)
[2017-02-08 19:50] VITALS: BP 138/67; RESP 16
[2017-02-08] MEDS: APIXABAN 5 MG TABLET PO SCH (20:35)
[2017-02-09 05:23] LABS: ADD SCAN DIFF NO
[2017-02-09 05:29] LABS: BASOPHILS % 0.6 % (0.0-2.0); EOSINOPHILS # 0.3 10^3/ul (0.0-0.5); EOSINOPHILS % 4.3 % (0.0-7.0); HEMATOCRIT 30.1 % (37.0-47.0); HEMOGLOBIN 9.8 g/dl (12.0-16.0); LYMPHOCYTES # 1.4 10^3/ul (0.8-2.9); LYMPHOCYTES % 22.5 % (15.0-51.0); MEAN CORPUSCULAR HEMOGLOBIN 28.7 pg (29.0-33.0); MEAN CORPUSCULAR HGB CONC 32.6 g/dl (32.0-37.0); MEAN CORPUSCULAR VOLUME 88.3 fl (82.0-101.0); MEAN PLATELET VOLUME 9.6 fl (7.4-10.4); MONOCYTE # 0.8 10^3/ul (0.3-0.9); MONOCYTES % 12.7 % (0.0-11.0); NEUTROPHIL # 3.7 10^3/ul (1.6-7.5); NEUTROPHILS % 59.4 % (39.0-77.0); PLATELET COUNT 205 10^3/UL (140-415); RED BLOOD COUNT 3.41 10^6/ul (4.20-5.40); RED CELL DISTRIBUTION WIDTH 13.5 % (11.5-14.5); WHITE BLOOD COUNT 6.2 10^3/ul (4.8-10.8)
[2017-02-09 05:45] LABS: CALCIUM 8.6 mg/dl (8.4-10.2); CREATININE 0.8 mg/dl (0.44-1.00); POTASSIUM 3.3 mmol/L (3.5-5.1)
[2017-02-09] MEDS: CEFAZOLIN 1 GM/50 ML (PMX) 50 ML IVPB SCH (05:48)
[2017-02-09 08:05] VITALS: BP 158/64; RESP 18
[2017-02-09] MEDS: NEBIVOLOL 5 MG TAB PO SCH (08:17)
[2017-02-09] MEDS: APIXABAN 5 MG TABLET PO SCH ×2 (08:18→21:26)
[2017-02-09] MEDS: FAMOTIDINE 20 MG TAB PO SCH ×2 (08:18→21:26)
[2017-02-09] MEDS ORDERED: POTASSIUM CHLORIDE (SR) 20 MEQ TAB PO STA (13:21)
--- NOTE | 2017-02-09 13:21 | PN ---
Date/Time of Note Date/Time of Note DATE: 02/09/17 TIME: 13:18 Assessment/Plan VTE Prophylaxis VTE Prophylaxis Intervention: other Lines/Catheters IV Catheter Type (from Nrsg): PICC Line Central line still needed: Yes Urinary Cath still in place: No Assessment/Plan Assessment/Plan A: lt axillary and basilic vein thrombi pelvic mass hypokalemia anemia antiphospholipid syndrome P: k replacement anticoagulation as per heme cont other rx monitor labs Subjective 24 Hr Interval Summary Free Text/Dictation Pt feeling okay. Ambulating some with some incisional pain, improving. No cp, sob. Exam/Review of Systems Vital Signs Vitals Vital Signs Date Time Temp Pulse Resp B/P Pulse Ox O2 Delivery O2 Flow Rate FiO2 02/09/17 08:05 98.5 81 18 158/64 96 02/08/17 03:46 Room Air 02/07/17 08:00 2.0 Intake and Output 02/08/17 02/08/17 02/09/17 15:00 23:00 07:00 Intake Total 50 ml 1350 ml 1150 ml Balance 50 ml 1350 ml 1150 ml Exam gen- nad, nontoxic lungs- CTA heart- regular ext- trace LE edema, decreasing LUE edema Results Result Diagram: 02/09/17 0429 02/09/17 0429 Results 24 hrs Laboratory Tests Test 02/09/17 04:29 02/09/17 06:02 White Blood Count 6.2 # Red Blood Count 3.41 L Hemoglobin 9.8 L Hematocrit 30.1 L Mean Corpuscular Volume 88.3 Mean Corpuscular Hemoglobin 28.7 L Mean Corpuscular Hemoglobin Concent 32.6 Red Cell Distribution Width 13.5 Platelet Count 205 Mean Platelet Volume 9.6 Neutrophils % 59.4 Lymphocytes % 22.5 Monocytes % 12.7 H Eosinophils % 4.3 Basophils % 0.6 Nucleated Red Blood Cells % 0.0 Neutrophils # 3.7 Lymphocytes # 1.4 Monocytes # 0.8 Eosinophils # 0.3 Basophils # 0.0 Nucleated Red Blood Cells # 0.0 Sodium Level 140 Potassium Level 3.3 L Chloride Level 97 Carbon Dioxide Level 30 Anion Gap 16 Blood Urea Nitrogen 8 Creatinine 0.80 Glucose Level 113 Calcium Level 8.6 Lab Scanned Report BLOOD TRANSFUSION Medications Medications Current Medications Morphine Sulfate (morphine) 4 mg Q4H PRN IV PAIN; Start 01/30/17 at 02:30 Ondansetron HCl (Zofran Inj) 4 mg Q4H PRN IV NAUSEA AND/OR VOMITING Last administered on 02/07/17 17:55; Admin Dose 4 MG; Start 01/30/17 at 02:30 Miscellaneous Medication (Bystolic) 5 mg DAILY PO Last administered on 08:17; Admin Dose 5 MG; Start 01/30/17 at 09:00 IV Flush (NS 10 ml) 10 ml PRN PRN IV IV PROTOCOL; Start 02/02/17 at 14:30 Acetaminophen (Tylenol Tab) 650 mg Q4H PRN PO NON-CARDIAC PAIN LEVEL (1-3) Last administered on 02/08/17 04:08; Admin Dose 650 MG; Start 02/03/17 at 10:00 Morphine Sulfate (morphine) 2 mg Q2H PRN IV PAIN LEVEL 6-10; Start 02/05/17 at 21:30 Acetaminophen/ Hydrocodone Bitart 1 tab 1 tab Q6H PRN PO PAIN LEVEL 6-10 Last administered on 02/07/17 20:56; Admin Dose 1 TAB; Start 02/05/17 at 21:30 Lactated Ringer's (Lr) 1,000 ml @ 50 mls/hr Q20H IV Last administered on 18:54; Admin Dose 50 MLS/HR; Start 02/06/17 at 15:00 Diphenhydramine HCl (Benadryl) 25 mg Q6H PRN IV ITCHING; Start 02/06/17 at 21: 00 Famotidine (Pepcid) 20 mg Q12 PO Last administered on 02/09/17 08:18; Admin Dose 20 MG; Start 02/08/17 at 09:00 Apixaban (Eliquis) 2.5 mg BID PO Last administered on 02/09/17 08:18; Admin Dose 2.5 MG; Start 02/08/17 at 21:00 HANANE CARIAS MD Feb 09, 2017 13:21
[2017-02-09] MEDS: LACTATED RINGER'S 1,000 ML IV SCH (15:36)
[2017-02-09 19:34] VITALS: BP 163/73; RESP 18
--- NOTE | 2017-02-09 20:21 | PN ---
DATE: 02/09/2017 SUBJECTIVE: Patient states she is feeling well. She is very anxious to go home. Only complains of some abdominal pain when coughing. No actual shortness of breath, no chest pain. The patient is tolerating her diet well, is passing bowel movements and flatus. OBJECTIVE: GENERAL: The patient is a well-developed, obese female who is in no acute distress. VITAL SIGNS: Temperature 98.3, pulse 80 per minute and regular, respirations 18, blood pressure 163 /73 and pulse oximetry 97% on room air. SKIN: No ecchymosis, no petechiae or rashes. HEENT: No mucosal lesions. No scleral icterus. NECK: Supple, no jugular venous distention or thyroid enlargement. CHEST: Clear to auscultation and percussion. No rhonchi, wheezes, rales or rubs. HEART: Regular sinus rhythm, no S3, S4 or murmurs. ABDOMEN: Obese. No masses or ascites. There is evidence of the recent laparoscopic examination an d mini laparotomy. Wounds did not show any evidence of infection. Bowel sounds are active. EXTREMITIES: Good range of motion. No clubbing or cyanosis. There is some edema of the left upper extremity as compared to right. There is a PICC line and also left upper extremity. Sodium is 140 , potassium 3.3, creatinine 0.6, BUN 8. White count 6200 with an absolute neutrophil count of 3700, hemoglobin 9.8, hematocrit 30.1 and plat elet count 205,000. Previous CA-125 was 1921 and HE4 48. ASSESSMENT: 1. Status post laparoscopic examination and subtotal hysterectomy with right salpingo-oophorectomy and left salpingectomy for right adnexal mass. The pathology is pending. 2. Lupus anticoagulant status post deep vein thrombosis and pulmonary emboli. 3. Deep vein thrombosis of the left axillary vein and superficial venous thrombosis of the left bas ilic vein, likely related to the patient's PICC line. PLAN: Our discussion, patient will likely be discharged in the next day or 2. She has been restart ed on Apixaban and will continue on the chronic Apixaban 2.5 mg twice a day. As noted, the patient does have what seems to be a new deep vein thrombosis involving the left upper extremity which is likely related to the PICC line. Pathology report of the adnexal mass is pending. Dictated By: CARLOS HAINES MD, SR/MARIELA Conf#: [id number] DID#: [id number]
[2017-02-09 20:43] VITALS: BP 145/72
--- NOTE | 2017-02-09 21:23 | PN ---
Date/Time of Note Date/Time of Note DATE: 02/09/17 TIME: 21:09 Assessment/Plan VTE Prophylaxis VTE Prophylaxis Intervention: other Lines/Catheters IV Catheter Type (from Nrs): PICC Line Central line still needed: Yes Urinary Cath still in place: No Assessment/Plan Chief Complaint/Hosp Course Pelvic-abdominal mass, coagulopathy, upper extremity DVT Problems: Assessment/Plan A- improved P- will keep IV TKO as I/O + balance 2-3 days in a row and tolerating diet well. If H/H stable tomorrow can give full dose Eliquis if desired. Subjective 24 Hr Interval Summary Free Text/Dictation Feels better, OOB more and + BM and voided easily. Exam/Review of Systems Vital Signs Vitals Vital Signs Date Time Temp Pulse Resp B/P Pulse Ox O2 Delivery O2 Flow Rate FiO2 02/09/17 20:43 145/72 02/09/17 19:34 98.3 80 18 97 02/08/17 03:46 Room Air 02/07/17 08:00 2.0 Intake and Output 02/08/17 02/08/17 02/09/17 15:00 23:00 07:00 Intake Total 50 ml 1350 ml 1150 ml Balance 50 ml 1350 ml 1150 ml Exam Resp- clear CVS- NSR Abd - NT incisions clean Ext_ NT less edema in arm Results Result Diagram: 02/09/17 0429 02/09/17 0429 Results 24 hrs Laboratory Tests Test 02/09/17 04:29 02/09/17 06:02 White Blood Count 6.2 # Red Blood Count 3.41 L Hemoglobin 9.8 L Hematocrit 30.1 L Mean Corpuscular Volume 88.3 Mean Corpuscular Hemoglobin 28.7 L Mean Corpuscular Hemoglobin Concent 32.6 Red Cell Distribution Width 13.5 Platelet Count 205 Mean Platelet Volume 9.6 Neutrophils % 59.4 Lymphocytes % 22.5 Monocytes % 12.7 H Eosinophils % 4.3 Basophils % 0.6 Nucleated Red Blood Cells % 0.0 Neutrophils # 3.7 Lymphocytes # 1.4 Monocytes # 0.8 Eosinophils # 0.3 Basophils # 0.0 Nucleated Red Blood Cells # 0.0 Sodium Level 140 Potassium Level 3.3 L Chloride Level 97 Carbon Dioxide Level 30 Anion Gap 16 Blood Urea Nitrogen 8 Creatinine 0.80 Glucose Level 113 Calcium Level 8.6 Lab Scanned Report BLOOD TRANSFUSION Medications Medications Current Medications Morphine Sulfate (morphine) 4 mg Q4H PRN IV PAIN; Start 01/30/17 at 02:30 Ondansetron HCl (Zofran Inj) 4 mg Q4H PRN IV NAUSEA AND/OR VOMITING Last administered on 02/07/17 17:55; Admin Dose 4 MG; Start 01/30/17 at 02:30 Miscellaneous Medication (Bystolic) 5 mg DAILY PO Last administered on 08:17; Admin Dose 5 MG; Start 01/30/17 at 09:00 IV Flush (NS 10 ml) 10 ml PRN PRN IV IV PROTOCOL; Start 02/02/17 at 14:30 Acetaminophen (Tylenol Tab) 650 mg Q4H PRN PO NON-CARDIAC PAIN LEVEL (1-3) Last administered on 02/08/17 04:08; Admin Dose 650 MG; Start 02/03/17 at 10:00 Morphine Sulfate (morphine) 2 mg Q2H PRN IV PAIN LEVEL 6-10; Start 02/05/17 at 21:30 Acetaminophen/ Hydrocodone Bitart 1 tab 1 tab Q6H PRN PO PAIN LEVEL 6-10 Last administered on 02/07/17 20:56; Admin Dose 1 TAB; Start 02/05/17 at 21:30 Lactated Ringer's (Lr) 1,000 ml @ 50 mls/hr Q20H IV Last administered on 15:36; Admin Dose 50 MLS/HR; Start 02/06/17 at 15:00 Diphenhydramine HCl (Benadryl) 25 mg Q6H PRN IV ITCHING; Start 02/06/17 at 21: 00 Famotidine (Pepcid) 20 mg Q12 PO Last administered on 02/09/17 08:18; Admin Dose 20 MG; Start 02/08/17 at 09:00 Apixaban (Eliquis) 2.5 mg BID PO Last administered on 02/09/17 08:18; Admin Dose 2.5 MG; Start 02/08/17 at 21:00 KELLY PAGE MD Feb 09, 2017 21:19
[2017-02-10 05:18] LABS: ADD SCAN DIFF NO
[2017-02-10 05:30] LABS: BASOPHILS % 0.7 % (0.0-2.0); EOSINOPHILS # 0.3 10^3/ul (0.0-0.5); EOSINOPHILS % 4.5 % (0.0-7.0); HEMATOCRIT 30.5 % (37.0-47.0); HEMOGLOBIN 9.7 g/dl (12.0-16.0); LYMPHOCYTES # 1.4 10^3/ul (0.8-2.9); LYMPHOCYTES % 25.6 % (15.0-51.0); MEAN CORPUSCULAR HEMOGLOBIN 28.1 pg (29.0-33.0); MEAN CORPUSCULAR HGB CONC 31.8 g/dl (32.0-37.0); MEAN CORPUSCULAR VOLUME 88.4 fl (82.0-101.0); MEAN PLATELET VOLUME 9.5 fl (7.4-10.4); MONOCYTE # 0.8 10^3/ul (0.3-0.9); MONOCYTES % 14.1 % (0.0-11.0); NEUTROPHIL # 3.1 10^3/ul (1.6-7.5); NEUTROPHILS % 54.6 % (39.0-77.0); PLATELET COUNT 232 10^3/UL (140-415); RED BLOOD COUNT 3.45 10^6/ul (4.20-5.40); RED CELL DISTRIBUTION WIDTH 13.3 % (11.5-14.5); WHITE BLOOD COUNT 5.6 10^3/ul (4.8-10.8)
[2017-02-10 05:55] LABS: CALCIUM 8.4 mg/dl (8.4-10.2); CREATININE 0.78 mg/dl (0.44-1.00); MAGNESIUM 1.7 mg/dl (1.7-2.5); POTASSIUM 3.7 mmol/L (3.5-5.1)
[2017-02-10 08:01] VITALS: BP 138/70; RESP 19
[2017-02-10] MEDS: APIXABAN 5 MG TABLET PO SCH (08:10)
[2017-02-10] MEDS: FAMOTIDINE 20 MG TAB PO SCH (08:10)
[2017-02-10] MEDS: NEBIVOLOL 5 MG TAB PO SCH (08:11)
[2017-02-10] MEDS ORDERED: NEBI5TAB9 PO (13:40)
[2017-02-10] MEDS ORDERED: APIX5TAB PO (13:40)
== END 2017-02-10 15:10 | disposition home or self-care (01) | DRG 742 ==
LOC: E/R 16:06 → MS1 23:34
PROVIDERS: ADMIT Internal Medicine; ATTEND Internal Medicine
PROC: 02HV33Z Insertion of Infusion Device into Superior Vena Cava, Percutaneous Approach (ICD-10-PCS; 2017-02-02)
PROC: 06H03DZ Insertion of Intraluminal Device into Inferior Vena Cava, Percutaneous Approach (ICD-10-PCS; 2017-02-03)
PROC: 0UJ84ZZ Inspection of Fallopian Tube, Percutaneous Endoscopic Approach (ICD-10-PCS; 2017-02-05)
PROC: 0UT90ZZ Resection of Uterus, Open Approach (ICD-10-PCS; 2017-02-05)
PROC: 0UJD4ZZ Inspection of Uterus and Cervix, Percutaneous Endoscopic Approach (ICD-10-PCS; 2017-02-05)
PROC: 0UT50ZZ Resection of Right Fallopian Tube, Open Approach (ICD-10-PCS; 2017-02-05)
PROC: 0UT60ZZ Resection of Left Fallopian Tube, Open Approach (ICD-10-PCS; 2017-02-05)
PROC: 0UT00ZZ Resection of Right Ovary, Open Approach (ICD-10-PCS; principal; 2017-02-05 15:00)
DX: D27.0 Benign neoplasm of right ovary (principal); D68.61 Antiphospholipid syndrome; Z68.41 Body mass index [BMI] 40.0-44.9, adult; I82.622 Acute embolism and thrombosis of deep veins of left upper extremity; E87.5 Hyperkalemia; E66.01 Morbid (severe) obesity due to excess calories; T82.868A Thrombosis due to vascular prosthetic devices, implants and grafts, initial encounter; I82.A12 Acute embolism and thrombosis of left axillary vein; N80.0 Endometriosis of uterus; D27.1 Benign neoplasm of left ovary; I10 Essential (primary) hypertension; N92.0 Excessive and frequent menstruation with regular cycle; T45.515A Adverse effect of anticoagulants, initial encounter; D64.9 Anemia, unspecified; Y83.8 Other surgical procedures as the cause of abnormal reaction of the patient, or of later complication, without mention of misadventure at the time of the procedure; Y92.238 Other place in hospital as the place of occurrence of the external cause; Y92.099 Unspecified place in other non-institutional residence as the place of occurrence of the external cause; E87.6 Hypokalemia; Z86.711 Personal history of pulmonary embolism; Z86.718 Personal history of other venous thrombosis and embolism
CPT/HCPCS: 36415; 36430; 36569; 71010; 71020; 74177; 75940; 76705; 76830; 76856; 76937; 80048; 80053; 81001; 83690; 83735; 84703; 85025; 85610; 85730; 86304; 86305; 86850; 86900; 86901; 86920; 87086; 93005; 93971; 96374; 96375; J1940; C1769; C1880; J0131; J0690; J1100; J1200; J1644; J1650; J1885; J2250; J2270; J2274; J2310; J2370; J2405; J2710; J2765; J2795; J3010; J3480; J7040; J7120; J7999; P9016; Q9967

== ENCOUNTER → 2017-02-26 | Outpatient (CLI) | payer BC ==
[~2017-02-26] MED LIST changes: -FER325 PO; +NEBI5TAB9 PO
[2017-02-26 12:13] LABS: ADD SCAN DIFF NO
[2017-02-26 12:23] LABS: BASOPHIL # 0.1 10^3/ul (0.0-0.1); BASOPHILS % 0.9 % (0.0-2.0); EOSINOPHILS # 0.2 10^3/ul (0.0-0.5); EOSINOPHILS % 3.9 % (0.0-7.0); HEMATOCRIT 36.6 % (37.0-47.0); HEMOGLOBIN 11.5 g/dl (12.0-16.0); LYMPHOCYTES # 2.3 10^3/ul (0.8-2.9); LYMPHOCYTES % 41.1 % (15.0-51.0); MEAN CORPUSCULAR HEMOGLOBIN 27.9 pg (29.0-33.0); MEAN CORPUSCULAR HGB CONC 31.4 g/dl (32.0-37.0); MEAN CORPUSCULAR VOLUME 88.8 fl (82.0-101.0); MEAN PLATELET VOLUME 9.5 fl (7.4-10.4); MONOCYTE # 0.4 10^3/ul (0.3-0.9); MONOCYTES % 7.2 % (0.0-11.0); NEUTROPHIL # 2.6 10^3/ul (1.6-7.5); NEUTROPHILS % 46.7 % (39.0-77.0); PLATELET COUNT 279 10^3/UL (140-415); RED BLOOD COUNT 4.12 10^6/ul (4.20-5.40); RED CELL DISTRIBUTION WIDTH 14.2 % (11.5-14.5); WHITE BLOOD COUNT 5.6 10^3/ul (4.8-10.8)
[2017-02-26 12:41] LABS: CALCIUM 9.2 mg/dl (8.4-10.2); CREATININE 0.93 mg/dl (0.44-1.00); POTASSIUM 4.1 mmol/L (3.5-5.1)
== END | disposition home or self-care (01) ==
LOC: LAB 11:37
PROVIDERS: ATTEND Internal Medicine
DX: D64.9 Anemia, unspecified (principal)
CPT/HCPCS: 80048; 85025

== ENCOUNTER → 2017-07-24 | Outpatient (CLI) | payer BC ==
--- NOTE | 2017-07-24 17:56 | RADRPT ---
PROCEDURE: XR Knee. CLINICAL INDICATION: Pain TECHNIQUE: AP, lateral and oblique view of the bilateral knee were obtained. The images reviewed on a PACS workstation. COMPARISON: None. FINDINGS: Three views of the bilateral knee demonstrate no displaced fracture. No gross malalignment is seen. There is mild narrowing of the medial joint compartment bilaterally minimal patellofemoral disease . No knee joint effusion is seen.. The bones normally mineralized. The soft tissues are unremarkab le. IMPRESSION: No acute fracture dislocation Mild medial joint compartment degenerative narrowing left greater than right Mild bilateral patellofemoral disease right greater than left RPTAT: HH .Narayan Alvarado MD, MD Date Time Electronically viewed and signed by .Narayan Alvarado MD, on 07/24/2017 17:56 .W/
--- NOTE | 2017-07-25 06:48 | HKNOTE ---
DATE OF SERVICE: 07/24/2017 CHIEF COMPLAINT: Bilateral knee pain. HISTORY OF PRESENT ILLNESS: Negrita is a 52-year-old female who is here for a followup on bilateral knee pain. She reports that the right side is worse than the left. She does have history of injur y to the right knee many months ago. This was followed by DVT and the patient is now on Eliquis. S he is recovering from that. However, she feels limited by her knee pain. This is associated with s welling and stiffness of the knees. There is no history of fever or chills. There is no history of other joint pains. PAST MEDICAL HISTORY: Significant for DVT and PE, hypertension, obesity. MEDICATIONS: Patient is takin. Bystolic. 2. Eliquis. ALLERGIES: SHE DENIES ANY DRUG ALLERGIES. REVIEW OF SYSTEMS: Negative for chest pain, shortness of breath, nausea, vomiting, diarrhea. It is positive for obesity and bilateral knee pain. PHYSICAL EXAMINATION: GENERAL: Shows a pleasant female. MUSCULOSKELETAL: She walks with a slight limp on her right side. Both knees have mild swelling. T he right knee shows range of motion from 0 to 100 degrees with mild varus deformity. There is media l joint line tenderness. There is no instability and no neurovascular deficit. The left knee shows mild varus deformity with range of motion from 0 to 115 degrees. There is no instability and no ne urovascular deficit. Medial joint line tenderness is noted as well. IMAGING: X-rays of the knees were done and show narrowing of the medial joint space and moderate to severe osteoarthritis. Left side looks worse than the right. MRI of the knee from 08/2016 is avai lable for the right side, there is a medial meniscus tear on the right side. ASSESSMENT AND PLAN: A 52-year-old female with bilateral knee pain, most likely related to osteoart hritis. She does have a meniscus tear on her right side, but given her history of deep venous throm bosis and pulmonary embolism, I have advised her to avoid surgical treatment. A knee arthroscopy ma y be of limited value. Knee injections may be helpful and hyaluronic acid injections will be reques gume. Physical therapy has also recommended weight loss and diet. Manipulation was discussed as jairo jacques. She will follow up for her injections when they are approved. Dictated By: ELAINA CAMPBELL MD UB/NTS Conf#: [id number] [facility]#: [id number]
== END | disposition home or self-care (01) ==
LOC: HKI 15:26
PROVIDERS: ATTEND Orthopaedic Surgery
DX: M25.562 Pain in left knee (principal); M25.561 Pain in right knee; I10 Essential (primary) hypertension; E66.9 Obesity, unspecified; Z86.718 Personal history of other venous thrombosis and embolism; Z86.711 Personal history of pulmonary embolism
CPT/HCPCS: 73562; G0463

== ENCOUNTER → 2017-08-14 | Outpatient (CLI) | END | disposition home or self-care (01) ==

== ENCOUNTER → 2017-08-21 | Outpatient (CLI) | END | disposition home or self-care (01) ==

== ENCOUNTER → 2017-08-28 | Outpatient (CLI) | END | disposition home or self-care (01) ==

== ENCOUNTER → 2017-10-01 | Outpatient (CLI) | END | disposition home or self-care (01) ==

== ENCOUNTER 2017-10-05 11:41 | Day surgery (SDC) | END 2017-10-05 17:00 | disposition home or self-care (01) ==

== ENCOUNTER → 2017-10-28 | Outpatient (CLI) | END | disposition home or self-care (01) ==

== ENCOUNTER → 2017-12-28 | Outpatient (CLI) | END | disposition home or self-care (01) ==

== ENCOUNTER → 2018-01-04 | Outpatient (CLI) | END | disposition home or self-care (01) ==

== ENCOUNTER → 2018-01-12 | Outpatient (CLI) | END | disposition home or self-care (01) ==

== ENCOUNTER → 2019-02-02 | Outpatient (CLI) | payer BC | END | disposition home or self-care (01) | LOC: LAB 07:05 | PROVIDERS: ATTEND Internal Medicine | DX: D68.59 Other primary thrombophilia (principal); E78.5 Hyperlipidemia, unspecified; R73.03 Prediabetes; E55.9 Vitamin D deficiency, unspecified | CPT/HCPCS: 80053; 80061; 81001; 82306; 84436; 84443; 85025 ==

== ENCOUNTER → 2019-03-16 | Outpatient (CLI) | payer BC | END | disposition home or self-care (01) | LOC: VAS 11:07 | PROVIDERS: ATTEND Internal Medicine | DX: I82.409 Acute embolism and thrombosis of unspecified deep veins of unspecified lower extremity (principal); I73.9 Peripheral vascular disease, unspecified | CPT/HCPCS: 93922; 93970 ==